=== PATIENT | female | born 1960 | race Caucasian/White ===

== ENCOUNTER 2019-04-03 07:01 | Inpatient (IN) | payer BC, SELFPAY ==
[2019-04-03] VITALS (17 sets, daily range): BP systolic 103–168; BP diastolic 63–99; PULSE 91–130; RESP 16–24; TEMP 36.3–37.3; O2SAT 95–100; BMI 56.4
--- NOTE | ~2019-04-03 | XR_ITS ---
EXAMINATION: XR chest 2V DATE: 04/03/2019 08:15 INDICATION: Shortness of breath. Atrial fibrillation. TECHNIQUE: frontal and lateral views of the chest were obtained. COMPARISON: Chest radiograph dated 08/01/17 FINDINGS: Persistent mild elevation of the right hemidiaphragm. Lungs remain clear with no focal airspace opaci ties, pulmonary edema, pleural effusion or pneumothorax. The cardiomediastinal silhouette is normal. Mild thoracic spondylosis. IMPRESSION: 1. No acute cardiopulmonary disease. Reviewed, dictated and finalized at location A. ATION CONSULTANT
--- NOTE | 2019-04-03 07:13 | ECG_ITS ---
Measurements Intervals [place] Rate: 125 P: [place]: 0 QRS: 35 QRSD: 88 T: 20 QT: 299 QTc: 432 Interpretive Statements ATRIAL FIBRILLATION WITH RAPID VENTRICULAR RESPONSE ABNORMAL ECG Electronically Signed On 04-03-2019 7:16:11 ASSOCIATE MEDICAL DIRECTOR by Laz Roy D.O.
--- NOTE | 2019-04-03 07:24 | ED.GENADULT ---
HPI - General Adult General Chief complaint: Shortness of Breath/Dyspnea Stated complaint: afib Time Seen by Provider: 04/03/19 07:07 Source: RN notes reviewed History of Present Illness HPI narrative: Patient presents to emergency department from home for A. fib. Patient states she has a history of paroxysmal A. fib is followed by Dr. Dumont. States she is on Xarelto. Patient states that she has been A. fib since Tuesday evening. States that normally she comes out of it but did not come out of it and came to the ER for further evaluation. Patient states she is normally on metoprolol for rate control which she has been taking. Denies any fevers or chills, chest pain, shortness of breath abdominal pain or any other symptoms at this time Related Data Allergies Allergy/AdvReac Type Severity Reaction Status Date / Time No Known Allergies Allergy Verified 08/01/17 20:49 Review of Systems Review of Systems: Narrative: Gen.: Denies fevers or chills ENT: Denies congestion Respiratory: Denies shortness of breath or cough CV: See HPI GI: Denies abdominal pain nausea, emesis or diarrhea Musculoskeletal: Denies back pain or muscle pain Neuro: Denies numbness, tingling, weakness or focal weakness Skin: Denies rash Except as documented, all other systems reviewed and negative [facility] Past Medical History Medical History (Updated 04/03/19 @ 08:47 by Bob Connell DO) Atrial fibrillation Family History Family History (Updated 07/07/16 @ 14:44 by DOCTOR UNKNOWN) Sibling Family history of obesity Hypertension Mother Family history of malignant neoplasm of breast in first degree relative Father Patient's father is Other Family history of malignant neoplasm Social History Social History Smoking status: Never smoker Second hand tobacco smoke exposure: No Alcohol intake: current Gender identity (if verbalized by the patient): Female Exam Narrative: Exam Narrative: APPEARANCE: No acute distress, nontoxic, resting in bed EYES: EOMI HEENT: Normocephalic, atraumatic, OMM RESPIRATORY: No respiratory distress Clear to auscultation bilaterally with no rhonchi wheezing or rales. CARDIOVASCULAR: Irregular irregular without murmurs rubs or gallops. ABDOMINAL: Soft, nontender, nondistended, no rebound or guarding MUSCULOSKELETAl: Moves all extremities. No clubbing, cyanosis or edema. NEURO: Awake and alert. Following commands, speech normal, no focal deficits SKIN:: Warm, dry. No rashes lesions or abrasions PSYCHIATRIC: Normal affect/mood, Course Course Emergency Course: Discussed with DICER MACHINE OPERATOR and Kody Dumont presentation work-up. Agrees with admission to the IMU at this time Discussed with patient and family results of workup and diagnosis. Discussed need for admission. Patient and family understand and agree to current treatment plan. Patient states she took her Xarelto last night Vital Signs Vital signs: Vital Signs Temperature 97.6 F 04/03/19 07:09 Pulse Rate 123 H 04/03/19 07:09 Respiratory Rate 24 H 04/03/19 07:09 Blood Pressure 168/99 H 04/03/19 07:09 Pulse Oximetry 100 04/03/19 07:09 Temperature 97.6 F 04/03/19 07:09 Pulse Rate 130 H 04/03/19 07:11 Respiratory Rate 24 H 04/03/19 07:09 Blood Pressure 168/99 H 04/03/19 07:09 Pulse Oximetry 100 04/03/19 07:38 Medical Decision Making Vital Signs Vital Signs: Vital Signs Temperature 97.6 F 04/03/19 07:09 Pulse Rate 123 H 04/03/19 07:09 Respiratory Rate 24 H 04/03/19 07:09 Blood Pressure 168/99 H 04/03/19 07:09 Pulse Oximetry 100 04/03/19 07:09 Temperature 97.6 F 04/03/19 07:09 Pulse Rate 130 H 04/03/19 07:11 Respiratory Rate 24 H 04/03/19 07:09 Blood Pressure 168/99 H 04/03/19 07:09 Pulse Oximetry 100 04/03/19 07:38 Lab Data Result diagrams: 04/03/19 07:36 04/03/19 07:36 [place]
[2019-04-03 07:44] LABS: Basophils Percent Auto 0.7 % (0.2-1.2); Eosinophils Absolute Auto 0.1 K/mm3 (0-0.3); Eosinophils Percent Auto 1.3 % (0-4.4); Hematocrit 46.8 % (37.0-47.0); Immature Granulocyte Absolute 0.02 K/mm3 (0.00-0.031); Immature Granulocyte Percent A 0.4 % (0-0.5); Lymphocytes Absolute Auto 1.62 K/mm3 (0.9-3.2); Mean Corpuscular HGB Conc 32.1 g/dl (32-36); Mean Corpuscular Hemoglobin 29.6 pg (26-34); Mean Corpuscular Volume 92.5 fl (80-100); Mean Platelet Volume 11.2 fl (7.4-10.4); Monocytes Absolute Auto 0.4 K/mm3 (0.1-0.6); Neutrophils Absolute Auto 3.3 K/mm3 (1.3-6.7); Neutrophils Percent Auto 60.6 % (45.5-73.1); Platelet Count Result 269 k/mm3 (150-375); Red Blood Count 5.06 M/mm3 (4.2-5.4); Red Cell Distribution Width 13.4 % (11.5-14.5); White Blood Count 5.4 K/mm3 (4.5-10.0)
[2019-04-03] MEDS: ASPIRIN 81 MG CHEWABLE TABLET 324 MG PO (07:53)
[2019-04-03 07:56] LABS: INR 1.2; Prothrombin Time 14.8 Seconds (11.1-14.7)
[2019-04-03 07:57] LABS: Blood Urea Nitrogen 16 mg/dL (7-17); Carbon Dioxide 29 mmol/L (22-30); Chloride 102 mmol/L (98-107); Estimated CRCL calculation 111 ml/min; Estimated Glomerular Filt Rate > 60; Glucose 113 mg/dL (65-105); Partial Thromboplastin Time 35.4 SECONDS (22.3-36.8); Potassium 3.8 mmol/L (3.4-5.0); Sodium 138 mmol/L (137-145)
[2019-04-03 08:08] LABS: Troponin I < 0.012 ng/mL (0.000-0.034)
--- NOTE | 2019-04-03 09:44 | ADMGEN ---
This patient, Leora Mcghee, was admitted to IMU Room 205-02 on 04-03-2019 at 0944. Patient/family oriented to hospital policies and general routines including ID bracelet, bed and alarms, visiting hours, pain management, procedures, bathroom and other care routines, personal items, smoking policy, room service/diet, and visiting hours. Valuables list has been completed. Information on how to activate the Rapid Response Team has been discussed. Patient/Family are encouraged to report perceived risks to care and to ask questions if they do not understand what they are told or what they should do.
[2019-04-03 11:18] LABS: Troponin I < 0.012 ng/mL (0.000-0.034)
--- NOTE | 2019-04-03 13:20 | PM.CNCAR ---
History of Present Illness History of Present Illness Consult date/time: Date of service: 04/03/19 13:20 This is a cardiology consultation at the request of Reason For Visit: afib with rvr PMFSH Past Medical History Medical History (Updated 04/03/19 @ 08:47 by Bob Connell DO) Atrial fibrillation Family History Family History (Updated 04/03/19 @ 10:22 by Joss Pastrana RN) Sibling Family history of obesity Hypertension Mother Family history of malignant neoplasm of breast in first degree relative Atrial fibrillation Hypertension Father Patient's father is Pulmonary fibrosis Angina at rest Other Family history of malignant neoplasm Social History Social History Smoking status: Never smoker Second hand tobacco smoke exposure: No Alcohol intake: never Substance use: never Gender identity (if verbalized by the patient): Female Spiritual care concerns: No Agree to blood products: Yes Meds Home Medications and Allergies Home Medications Medication Instructions Recorded Confirmed Type cyanocobalamin (vitamin B-12) 250 mcg PO DAILY 04/03/19 04/03/19 History ferrous gluconate 324 mg PO DAILY 04/03/19 04/03/19 History levothyroxine [Synthroid] 100 mcg PO DAILY 04/03/19 04/03/19 History metoprolol tartrate 100 mg PO Q12H 04/03/19 04/03/19 History pediatric multivitamin no.76 2 tablet PO DAILY 04/03/19 04/03/19 History [Flintstones Complete] rivaroxaban [Xarelto] 20 mg PO DAILY 04/03/19 04/03/19 History thiamine HCl (vitamin B1) [Vitamin 250 mg PO DAILY 04/03/19 04/03/19 History B-1] triamcinolone acetonide 1 applic TOPICAL DAILY PRN 04/03/19 04/03/19 History Allergies Allergy/AdvReac Type Severity Reaction Status Date / Time No Known Allergies Allergy Verified 04/03/19 10:22 Vital Signs Vital Signs - 24 hr 04/03/19 07:09 04/03/19 07:11 04/03/19 07:38 Temperature 36.4 C Pulse Rate 123 H 130 H Respiratory Rate 24 H Blood Pressure 168/99 H Pulse Oximetry 100 100 04/03/19 08:30 04/03/19 09:30 04/03/19 10:00 Temperature Pulse Rate 103 H 112 H 117 H Respiratory Rate 18 16 Blood Pressure 132/88 116/89 Pulse Oximetry 99 100 Results Labs and Meds Result diagrams: 04/03/19 07:36 04/03/19 07:36 Lab results: Cardiac Enzymes 04/03/19 04/03/19 Range/Units 07:36 10:46 Troponin I < 0.012 < 0.012 (0.000-0.034) ng/mL Coagulation 04/03/19 Range/Units 07:36 PT 14.8 H (11.1-14.7) Seconds APTT 35.4 (22.3-36.8) SECONDS CBC 04/03/19 Range/Units 07:36 WBC 5.4 (4.5-10.0) K/mm3 RBC 5.06 (4.2-5.4) M/mm3 Hgb 15.0 (12.0-15.0) g/dL Hct 46.8 (37.0-47.0) % Plt Count 269 (150-375) k/mm3 Lymph # (Auto) 1.62 (0.9-3.2) K/mm3 [place] # (Auto) 0.4 (0.1-0.6) K/mm3 Eos # (Auto) 0.1 (0-0.3) K/mm3 Baso # (Auto) 0.0 (0.0-0.1) K/mm3 Comprehensive Metabolic Panel 04/03/19 Range/Units 07:36 Sodium 138 (137-145) mmol/L Potassium 3.8 (3.4-5.0) mmol/L Chloride 102 (98-107) mmol/L Carbon Dioxide 29 (22-30) mmol/L BUN 16 (7-17) mg/dL Creatinine 0.80 (0.7-1.0) mg/dL Glucose 113 H (65-105) mg/dL Calcium 9.0 (8.4-10.2) mg/dL Patient Weight 04/03/19 23:59 Weight 163.4 kg
--- NOTE | 2019-04-03 13:24 | PM.IMHP ---
H&P: HPI History of Present Illness Chief complaint: afib with rvr Narrative: Leora Mcghee is a 58 year old female with past medical history significant for heart failure with preserved ejection fraction, hypertension, pulmonary hypertension, morbid obesity, paroxysmal atrial fibrillation on systemic anticoagulation noted onset of rapid palpitations and recurrence of atrial fibrillation which began Tuesday evening. Typically, her episodes resolved but this persisted a given progressive fatigue ongoing palpitations with rapid heart rate response she presented to the ER for further evaluation. She was found to be in atrial fibrillation with rapid ventricular response. She was hemodynamically stable without complaints of chest pain or significant shortness of breath exception of mild dyspnea with activity. She denies falls, near-syncope or syncope. No bleeding, recent illnesses or fevers/chills. She notes worsening edema over the past few days resolves elevating her legs by morning. She has been compliant with the medications and has not missed a single dose of anticoagulation with Xarelto for months. She was taking metoprolol 100 mg twice daily in which her last dose was last night. In the ER she was started on diltiazem drip at 5 milligrams/hour and heart rate remained in the 110s-130 range. She feels a little better but largely unchanged since admission. She has no other specific complaints at this time. Review of Systems Review of Systems: All systems reviewed & are unremarkable except as noted in HPI and below Constitutional: Constitutional: Reports as per HPI, Reports no additional constitutional complaints, Denies chills, Denies difficulty sleeping, Reports fatigue, Reports lethargy and Denies weakness Eyes: Eyes: Reports as per HPI, Reports no additional eye complaints and Denies blurry vision ENT: Reports system reviewed and no additional complaints, except as documented, Reports as per HPI, Reports Normal hearing present, Denies dysphagia, Denies epistaxis and Denies nasal congestion Cardiovascular: Cardiovascular: Reports as per HPI, Reports no additional cardiovascular complaints, Denies chest pain, Denies diaphoresis, Reports pedal edema, Reports leg edema, Reports lightheadedness and Reports palpitations Respiratory: Respiratory: Reports as per HPI, Reports no additional respiratory complaints, Denies cough, Denies hemoptysis, Reports dyspnea on exertion and Denies wheezing Gastrointestinal: Gastrointestinal: Reports as per HPI, Reports no additional gastrointestinal complaints, Denies abdominal pain, Denies melena, Denies bloating, Denies hematochezia, Denies nausea, Denies vomiting and Denies hematemesis Genitourinary: Genitourinary: Reports as per HPI, Denies hematuria, Denies nocturia and Denies dysuria Musculoskeletal: Musculoskeletal: Reports no additional musculoskeletal complaints, Reports as per HPI, Denies back pain, Denies arthralgias and Denies neck pain Integumentary/Breasts: Skin/Breast: Reports system reviewed and no additional complaints, except as docu, Reports as per HPI, Denies rash and Denies unusual bruising Neurologic: Reports system reviewed and no additional complaints, except as documented, Reports as per HPI, Denies Abnormal speech present, Denies abnormal gait and Denies headache(s) Psychiatric: Psychiatric: Reports no additional psychiatric complaints, Reports as per HPI, Denies behavioral changes and Denies confusion Endocrine: Endocrine: Reports no additional endocrine complaints, Reports as per HPI, Denies cold intolerance, Denies excessive sweating and Reports fatigue Hematologic/Lymphatic: Hematologic/Lymphatic: Reports no additional hematologic/lymphatic complaints, Reports as per HPI and Denies easy bleeding Allergic/Immunologic: Allergic/Immunologic: Reports no additional allergic/immunologic complaints, Reports as per HPI and Denies tongue swelling PMFSH Past Medical History Medical History (Review
[2019-04-03 14:22] LABS: Troponin I < 0.012 ng/mL (0.000-0.034)
[2019-04-03] MEDS: SOTALOL HCL 80 MG TABLET PO ×2 (14:27→21:28)
[2019-04-03] MEDS: FERROUS GLUCONATE 324 MG TABLET PO (15:44)
[2019-04-03] MEDS: CYANOCOBALAMIN 250 MCG TABLET PO (15:44)
[2019-04-03] MEDS: THIAMINE HCL 100 MG TABLET 200 MG PO (15:45)
[2019-04-03] MEDS: MULTIVITS W-FE,MIN CHEWABLE TABLET 2 TABLET PO (15:45)
[2019-04-03] MEDS: RIVAROXABAN 20 MG TABLET PO (16:58)
[2019-04-03] MEDS: THIAMINE HCL 50 MG TABLET PO (16:58)
[2019-04-04] VITALS (18 sets, daily range): BP systolic 105–122; BP diastolic 52–72; PULSE 67–119; RESP 18–22; TEMP 36.1–37; O2SAT 98–100
[2019-04-04] MEDS: LEVOTHYROXINE SODIUM 100 MCG TABLET PO (05:27)
--- NOTE | 2019-04-04 07:00 | ECG_ITS ---
Measurements Intervals [place] Rate: 118 P: [place]: 0 QRS: 55 QRSD: 85 T: 28 QT: 324 QTc: 455 Interpretive Statements ATRIAL FIBRILLATION WITH RAPID VENTRICULAR RESPONSE ABNORMAL ECG Electronically Signed On 04-04-2019 7:34:43 UNDERWRITING ANALYST by Laz Roy D.O.
[2019-04-04 08:06] LABS: Basophils Absolute Auto 0.1 K/mm3 (0.0-0.1); Basophils Percent Auto 0.9 % (0.2-1.2); Eosinophils Absolute Auto 0.1 K/mm3 (0-0.3); Eosinophils Percent Auto 1.3 % (0-4.4); Hematocrit 49.8 % (37.0-47.0); Hemoglobin 15.5 g/dL (12.0-15.0); Immature Granulocyte Absolute 0.02 K/mm3 (0.00-0.031); Immature Granulocyte Percent A 0.4 % (0-0.5); Lymphocytes Absolute Auto 2.25 K/mm3 (0.9-3.2); Lymphocytes Percent Auto 40.3 % (18.3-44.2); Mean Corpuscular HGB Conc 31.1 g/dl (32-36); Mean Corpuscular Hemoglobin 29.4 pg (26-34); Mean Corpuscular Volume 94.3 fl (80-100); Mean Platelet Volume 11.7 fl (7.4-10.4); Monocytes Absolute Auto 0.4 K/mm3 (0.1-0.6); Monocytes Percent Auto 7.2 % (2.6-8.5); Neutrophils Absolute Auto 2.8 K/mm3 (1.3-6.7); Neutrophils Percent Auto 49.9 % (45.5-73.1); Platelet Count Result 253 k/mm3 (150-375); Red Blood Count 5.28 M/mm3 (4.2-5.4); Red Cell Distribution Width 13.3 % (11.5-14.5); White Blood Count 5.6 K/mm3 (4.5-10.0)
[2019-04-04 08:40] LABS: Blood Urea Nitrogen 16 mg/dL (7-17); Carbon Dioxide 27 mmol/L (22-30); Chloride 104 mmol/L (98-107); Estimated CRCL calculation 142 ml/min; Estimated Glomerular Filt Rate > 60; Glucose 98 mg/dL (65-105); Potassium 4.5 mmol/L (3.4-5.0); Sodium 138 mmol/L (137-145)
[2019-04-04] MEDS: FERROUS GLUCONATE 324 MG TABLET PO (08:49)
[2019-04-04] MEDS: MULTIVITS W-FE,MIN CHEWABLE TABLET 2 TABLET PO (08:49)
[2019-04-04] MEDS: THIAMINE HCL 50 MG TABLET PO (08:49)
[2019-04-04] MEDS: THIAMINE HCL 100 MG TABLET 200 MG PO (08:49)
[2019-04-04] MEDS: SOTALOL HCL 80 MG TABLET PO ×2 (08:50→21:39)
--- NOTE | 2019-04-04 12:26 | PM.PNCARD ---
Progress Note: A&P Assessment and Plan (1) Atrial fibrillation with rapid ventricular response: Code(s): I48.91 - Unspecified atrial fibrillation Status: Acute Assessment and Plan: Continue sotalol 80 mg twice daily. QT corrected 455 milliseconds today. Check EKG in a.m.. Monitor for toxicity. Continue telemetry. No ventricular arrhythmias. Atrial fibrillation with rapid ventricular response persistent. Asymptomatic, continue anticoagulation. If remains in AFib overnight plan for elective electrical cardioversion without FLOYD guidance in a.m.. Anticipate discharge home subsequently on sotalol 80 mg twice daily and continuation of anticoagulation. Discussed with patient and her mother bedside who verbalized understanding and agreed with plan of care. Risks, benefits, and alternatives explained in detail and in particular with regards to risk for oxygen desaturation. With see if respiratory therapy can provide CPAP support during cardioversion with conscious sedation. NPO after midnight. (2) Heart failure with preserved ejection fraction: Code(s): I50.30 - Unspecified diastolic (congestive) heart failure Status: Acute Assessment and Plan: Compensated. Continue home medical therapy. (3) Pulmonary hypertension: Code(s): I27.20 - Pulmonary hypertension, unspecified Status: Acute Assessment and Plan: Check 2D echocardiogram (4) Morbid obesity: Code(s): E66.01 - Morbid (severe) obesity due to excess calories Status: Acute Assessment and Plan: Apnea link consistent with mild obstructive sleep apnea AHI 6. Mild oxygen desaturation noted. Lifestyle modification counseling. Will see if respiratory therapy can provide CPAP support for elective cardioversion tomorrow. (5) Chronic anticoagulation: Code(s): Z79.01 - exterminator helper (current) use of anticoagulants Status: Acute Assessment and Plan: Continue systemic anticoagulation without interruption. Subjective Date/time seen: Date of service: 04/04/19 09:35 Follow-up for atrial fibrillation with rapid ventricular response and sotalol loading Feels fine. No new issues overnight. Tolerating sotalol thus far. Remains in atrial fibrillation with rapid ventricular response. Average heart rate low 100s faster with activity. No dizziness, chest pain, shortness of breath. Apnea link performed overnight AHI 6. Review of Systems Review of Systems: All systems reviewed & are unremarkable except as noted in HPI and below Constitutional: Constitutional: Reports as per HPI, Reports no additional constitutional complaints, Denies chills, Denies difficulty sleeping, Denies excessive sweating, Reports fatigue, Denies headache(s), Reports lethargy and Denies weakness Eyes: Eyes: Reports as per HPI, Reports no additional eye complaints and Denies blurry vision ENT: Reports system reviewed and no additional complaints, except as documented, Reports as per HPI, Reports Normal hearing present, Denies dysphagia, Denies headache(s), Denies epistaxis, Denies nasal congestion, Denies neck pain and Denies tongue swelling Cardiovascular: Cardiovascular: Reports as per HPI, Reports no additional cardiovascular complaints, Denies chest pain, Denies diaphoresis, Reports pedal edema, Reports leg edema, Reports lightheadedness, Reports palpitations and Reports dyspnea on exertion Respiratory: Respiratory: Reports as per HPI, Reports no additional respiratory complaints, Denies cough, Denies hemoptysis, Reports dyspnea on exertion and Denies wheezing Gastrointestinal: Gastrointestinal: Reports as per HPI, Reports no additional gastrointestinal complaints, Denies abdominal pain, Denies melena, Denies bloating, Denies hematochezia, Denies dysphagia, Denies nausea, Denies vomiting and Denies hematemesis Genitourinary: Genitourinary: Reports as per HPI, Denies hematuria, Denies nocturia and Denies dysuria Musculoskeletal:
--- NOTE | 2019-04-04 13:26 | PHAR ---
HOME MED VERIFIED VITAMIN B 12 SUBLINGUAL 5000MCG DAILY
--- NOTE | 2019-04-04 15:54 | ECHO_ITS ---
Patient Info Name: Leora Mcghee Age: 58 years : 1960 Gender: Female Ht: 67 in Wt: 360 lbs BSA: 2.88 m2 HR: 115 bpm BP: 106 / 69 mmHg Heart Rhythm: Atrial Fibrillation Technical Quality: Good Exam Date: 04/04/2019 11:42 AM Exam Location: [facility] Patient Status: Inpatient Admit Date: 04/04/2019 Staff Ordering Physician: Ron Dumont MD Cloth Bin Packer: Harman Garnett RDCS Attending Provider: Ron Dumont MD Referring Physician: Tim BOUCHER; Exam Type: CA echo doppler color flow Study Info Indications I48.0 - Paroxysmal atrial fibrillation Complete two-dimensional, color flow and Doppler transthoracic echocardiogram is performed. Strain analysis performed. History/Risk Factors Afib w/ RVR, HFpEF, pHTN, HTN, edema. Summary 1. Left ventricular systolic function is normal, estimated at 60-65%. 2. There is mildly increased left ventricular wall thickness. 3. The left ventricular diastolic function is indeterminate. 4. Left atrial chamber dimension is mildly enlarged. 5. Right atrial chamber dimension is moderately enlarged. 6. Upper limits or normal pulmonary pressures, estimated pulmonary arterial systolic pressure is 35 mmHg. 7. Technically difficult study. Left Ventricle Left ventricular chamber dimension is normal. Left ventricular systolic function is normal, estimated at 60-65%. There is mildly increased left ventricular wall thickness. The left ventricular diastolic function is indeterminate. Global longitudinal strain is mildly elevated at -13 %. Right Ventricle Right ventricular chamber dimension is normal. Right ventricular systolic function is normal. Left Atria Left atrial chamber dimension is mildly enlarged. Right Atria Right atrial chamber dimension is moderately enlarged. Aortic Valve The aortic valve is not well visualized. There is mild aortic valve sclerosis. There is no aortic valve stenosis. There is no aortic valve regurgitation. Pulmonic Valve The pulmonic valve is not well visualized. Mitral Valve The mitral valve has normal leaflets. There is trace mitral valve regurgitation. Tricuspid Valve The tricuspid valve leaflets are normal. There is trace tricuspid valve regurgitation. Upper limits or normal pulmonary pressures, estimated pulmonary arterial systolic pressure is 35 mmHg. Pericardium/Pleural The pericardium appears normal. There is no pericardial effusion. Inferior Vena Cava Normal inferior vena cava with >50% collapse upon inspiration consistent with normal right atrial pressure, 5 mmHg. Aorta The aortic root size at the sinus of Valsalva is normal. Left Ventricular Outflow Tract Name Value Normal LVOT 2D LVOT Diameter 2.1 cm LVOT Doppler LVOT Peak Gradient 3 mmHg LVOT Mean Gradient 2 mmHg LVOT VTI 16 cm LVOT VTI/AV VTI Ratio 0.6 LVOT Stroke Volume 55 ml LVOT CO 5.9 l/min LVOT CI
[2019-04-04] MEDS: RIVAROXABAN 20 MG TABLET PO (17:46)
[2019-04-05] VITALS (22 sets, daily range): BP systolic 94–120; BP diastolic 60–75; PULSE 61–111; RESP 10–20; TEMP 36.1–36.3; O2SAT 97–100
[2019-04-05] MEDS: LEVOTHYROXINE SODIUM 100 MCG TABLET PO (06:40)
--- NOTE | 2019-04-05 07:00 | ECG_ITS ---
Measurements Intervals [place] Rate: 107 P: [place]: 0 QRS: 35 QRSD: 90 T: 30 QT: 346 QTc: 464 Interpretive Statements ATRIAL FIBRILLATION WITH RAPID VENTRICULAR RESPONSE VENTRICULAR PREMATURE COMPLEX ABNORMAL ECG Electronically Signed On 04-05-2019 9:25:08 RN LPN LVN by Laz Roy D.O.
[2019-04-05] MEDS: SOTALOL HCL 80 MG TABLET PO (07:58)
[2019-04-05 09:31] LABS: Blood Urea Nitrogen 13 mg/dL (7-17); Calcium 9.1 mg/dL (8.4-10.2); Carbon Dioxide 26 mmol/L (22-30); Chloride 102 mmol/L (98-107); Estimated CRCL calculation 125 ml/min; Estimated Glomerular Filt Rate > 60; Glucose 114 mg/dL (65-105); Potassium 4.5 mmol/L (3.4-5.0); Sodium 139 mmol/L (137-145)
--- NOTE | 2019-04-05 09:34 | PC.NURSE ---
Pt to wastewater analyst lab analyst for cardioversion.
--- NOTE | 2019-04-05 12:00 | ECG_ITS ---
Measurements Intervals [place] Rate: 71 P: 9 TN: 213 QRS: 20 QRSD: 102 T: 30 QT: 411 QTc: 448 Interpretive Statements SINUS RHYTHM WITH FIRST DEGREE AV BLOCK ABNORMAL ECG Electronically Signed On 04-05-2019 14:47:53 CULTURE MEDIA LABORATORY ASSISTANT by Laz Roy D.O.
--- NOTE | 2019-04-05 12:14 | WPDMODSED ---
Moderate Sedation Note-Pt Data Patient Data Diagnosis: Persistent atrial fibrillation with rapid ventricular response Present Complaint: None Procedure to be performed/Plan: Elective electrical cardioversion Allergies Allergy/AdvReac Type Severity Reaction Status Date / Time No Known Allergies Allergy Verified 04/03/19 10:22 Home Medications Medication Instructions Recorded Confirmed Type ferrous gluconate 324 mg PO DAILY 04/03/19 04/03/19 History levothyroxine [Synthroid] 100 mcg PO DAILY 04/03/19 04/03/19 History metoprolol tartrate 100 mg PO Q12H 04/03/19 04/03/19 History pediatric multivitamin no.76 2 tablet PO DAILY 04/03/19 04/03/19 History [Flintstones Complete] rivaroxaban [Xarelto] 20 mg PO DAILY 04/03/19 04/03/19 History thiamine HCl (vitamin B1) [Vitamin 250 mg PO DAILY 04/03/19 04/03/19 History B-1] triamcinolone acetonide 1 applic TOPICAL DAILY PRN 04/03/19 04/03/19 History cyanocobalamin-methylcobalamin 5,000 tablet SUBLINGUAL DAILY 04/04/19 04/04/19 History Current Medications: Active Medications Ferrous Gluconate (Ferrous Gluconate) 324 mg PO DAILY [facility] Last Admin: 04/04/19 08:49 Dose: 324 mg Documented by: Levothyroxine Sodium (Synthroid) 100 mcg PO 0630 [facility] Last Admin: 04/05/19 06:40 Dose: 100 mcg Documented by: Multivitamins/Minerals (Flintstones Complete) 2 tablet PO DAILY [facility] Stop: 05/04/19 09:01 Last Admin: 04/04/19 08:49 Dose: 2 tablet Documented by: Rivaroxaban (Xarelto) 20 mg PO QPM [facility] Last Admin: 04/04/19 17:46 Dose: 20 mg Documented by: Sotalol HCl (Betapace) 80 mg PO Q12HR [facility] Last Admin: 04/05/19 07:58 Dose: 80 mg Documented by: Thiamine HCl (Vitamin B-1) 200 mg PO DAILY [facility] Stop: 05/04/19 09:01 Last Admin: 04/04/19 08:49 Dose: 200 mg Documented by: Thiamine HCl (Vitamin B-1) 50 mg PO DAILY [facility] Last Admin: 04/04/19 08:49 Dose: 50 mg Documented by: Sedation/Anesthesia: No previous sedation/anesthesia problems (including family history). [facility] Past Medical History Medical History Atrial fibrillation Heart failure with preserved ejection fraction Morbid obesity Pulmonary hypertension Family History Family History Sibling Family history of obesity Hypertension Mother Family history of malignant neoplasm of breast in first degree relative Atrial fibrillation Hypertension Father Patient's father is Pulmonary fibrosis Angina at rest Other Family history of malignant neoplasm Social History Social History Smoking status: Never smoker Second hand tobacco smoke exposure: No Alcohol intake: never Substance use: never Gender identity (if verbalized by the patient): Female Spiritual care concerns: No Agree to blood products: Yes Mod Sed Physical Exam Physical Exam Pre Procedural Exam: Normal: Appearance, Eyes, Ears, Nose, Neck (Supple, normal range of motion), Throat (Posterior hypopharynx clear, nonerythematous), Airway (Normal anatomy, no obstruction), Lungs (Clear to auscultation bilaterally), Heart Size, Neuro Exam, Liver, Kidneys, Genitalia and Skin and Variation: Heart Rate (Tachycardic), Heart Rhythm (Irregular irregular), Abdomen (Morbidly obese) and Extremities (1+ bilateral lower extremity edema) Hours since solid foods: 12 Hours since liquid intake: 12 Internal Medicine - PN: Obj Da Vital Signs Vital Signs: Vital Signs - 24 hr 04/04/19 14:00 04/04/19 16:00 04/04/19 18:00 Temperature 37.0 C Pulse Rate 109 H 108 H 89 Respiratory Rate 18 Blood Pressure 122/72 Pulse Oximetry 100 04/04/19 19:35 04/04/19 20:00 04/04/19 21:39 Temperature 36.8 C Pulse Rate 107 H 109 H 110 H Respiratory Rate 20 Blood Pressure 113/53 L Pulse Oximetry 100 04/04/19 21:54 04/04/19 23:43 04/04/19 23:52 [place]
--- NOTE | 2019-04-05 12:16 | P.PCNCVR_ITS ---
Cardioversion Cardioversion Date of procedure: 04/05/19 Procedure: Elective electrical cardioversion Pre-op diagnosis: Atrial fibrillation with rapid ventricular response Post-op diagnosis: same Indications: Atrial fibrillation with rapid ventricular response Description of procedure: Brief history present illness: Patient is a pleasant 58-year-old female with a history of paroxysmal atrial fibrillation, heart failure with preserved ejection fraction, morbid obesity maintain on systemic anticoagulation with persistent atrial fibrillation with rapid ventricular response admitted to the hospital for further management. Patient was then initiated on sotalol loading and is now referred for elective cardioversion in attempt restore sinus rhythm. Procedure in detail: After verbal and written informed consent was obtained the patient risks, benefits, and alternatives explained in detail the patient agreed to proceed with the plan of care as outlined above. Patient was evaluated at bedside in the [facility] procedure room. On examination, neck was supple with normal range of motion, no restrictions to opening of the oral cavity, jaw angle and posterior hypopharynx was clear. Lungs were clear to auscultation. Patient was placed in appropriate 30 to 45 degree angle in a supine position. Patient was monitored throughout the study with telemetry, oxygen saturation, end-tidal CO2 monitoring, blood pressure, heart rate, and respirations. Anterior and posterior defibrillator pads placed in the appropriate positions. After confirmation of adequate sedation electrical cardioversion was carried out without complication. Patient tolerated the procedure well without difficulty. Sedation: Moderate Sedation/Anesthesia administration: Patient denied previous intolerance or complications with anesthesia/sedation. Please see sedation note for documentation of the pre-procedure physical examination. As noted above, after adequate local anesthesia of the posterior hypopharynx was achieved, a total of 8mg intravenous Versed and a total of 225 mcg intravenous Fentanyl in multiple divided doses was utilized for moderate sedation. Sedation start time was 1102 and end time was 1144 for a total of 42 minutes [id number] intra-procedure time. Sedation was administered by a qualified observer Jerica Alvarez RN under my supervision with intra-procedure [id number] observation and management throughout the entirety of the procedure. There were no other issues or complications and patient tolerated the procedure well and sedation protocol well and I was present for the entirety. Findings: Elective electrical cardioversion: After confirmation of adequate sedation and persistence of atrial fibrillation, 200 joules synched biphasic energy x1 was delivered with immediate congregational of sinus rhythm. Twelve lead EKG was obtained postprocedure confirming sinus rhythm. QTc 434msec Complications: None Conclusion: Successful congregational of sinus rhythm with 200 joules synched biphasic energy x1.
--- NOTE | 2019-04-05 13:08 | SUR.PHASEII ---
Report called to Queta RN in IMU, all questions answered. Patient taken back to room 214 via bed.
[2019-04-05] MEDS: MULTIVITS W-FE,MIN CHEWABLE TABLET 2 TABLET PO (13:22)
[2019-04-05] MEDS: THIAMINE HCL 100 MG TABLET 200 MG PO (13:23)
[2019-04-05] MEDS: FERROUS GLUCONATE 324 MG TABLET PO (13:23)
[2019-04-05] MEDS: THIAMINE HCL 50 MG TABLET PO (13:23)
--- NOTE | 2019-04-05 13:32 | PC.NURSE ---
Pt returned from clinical laboratory aide
--- NOTE | 2019-04-05 13:47 | PM.DS ---
DS: Diagnosis Admitting Diagnosis Admitting Diagnosis: Atrial fibrillation with a rapid ventricular response Discharge Diagnosis (1) Atrial fibrillation with rapid ventricular response: Code(s): I48.91 - Unspecified atrial fibrillation Status: Acute Assessment and Plan: Successful cardioversion restoring normal sinus rhythm QTc postprocedure 434ms Continue sotalol 80 mg every 12 hours. Continue Xarelto 20 mg daily for anticoagulation. (2) Heart failure with preserved ejection fraction: Code(s): I50.30 - Unspecified diastolic (congestive) heart failure Status: Acute Assessment and Plan: Compensated. Continue home medical therapy. (3) Pulmonary hypertension: Code(s): I27.20 - Pulmonary hypertension, unspecified Status: Acute Assessment and Plan: ECHO: 1. Left ventricular systolic function is normal, estimated at 60-65%. 2. There is mildly increased left ventricular wall thickness. 3. The left ventricular diastolic function is indeterminate. 4. Left atrial chamber dimension is mildly enlarged. 5. Right atrial chamber dimension is moderately enlarged. 6. Upper limits or normal pulmonary pressures, estimated pulmonary arterial systolic pressure is 35 mmHg. 7. Technically difficult study. (4) Morbid obesity: Code(s): E66.01 - Morbid (severe) obesity due to excess calories Status: Acute Assessment and Plan: Apnea link consistent with mild obstructive sleep apnea AHI 6. Mild oxygen desaturation noted. Lifestyle modification counseling. (5) Chronic anticoagulation: Code(s): Z79.01 - terminal press operator (current) use of anticoagulants Status: Acute Assessment and Plan: Continue systemic anticoagulation without interruption. DS: Summary Hospital Course Reason for hospitalization: Atrial fibrillation with rapid ventricular response Hospital Course: 58-year-old female with a history of paroxysmal atrial fibrillation, heart failure with preserved ejection fraction, morbid obesity maintain on systemic anticoagulation with persistent atrial fibrillation with rapid ventricular response admitted to the hospital for further management. She was initiated on sotalol loading and underwent successful cardioversion with mosque in normal sinus rhythm. She was observed for 2 hours postprocedure. She maintain normal sinus rhythm. She was awake, alert, without lightheadedness on ambulation to the bathroom. Her gait was steady. She was discharged home in stable and pain-free condition. Time Spent with Patient Time attestation: Total time spent providing and/or coordinating discharge services:15 minutes Exam Narrative: Exam Narrative: General: Patient is a very pleasant obese female, no apparent distress alert and oriented x3 breathing comfortably speaking full sentences, cooperative. Head: atraumatic, normocephalic Eyes: EOM intact, sclerae anicteric, conjunctivae unremarkable Ears/Nose: external inspection of ears and nose were grossly normal Mouth/Throat: oral mucosa pink and moist Neck: supple, normal range of motion, no jugular venous distention or carotid bruits, thyroid nonpalpable, trachea midline. Cardiac: Irregular irregular rate and rhythm, tachycardic normal S1-S2, no murmurs, clicks, or rubs. Lungs: Clear to auscultation bilaterally, no rales, wheezes, or rhonchi. Abdomen: Obese, soft, nontender, nondistended, positive bowel sounds throughout. No appreciable hepatosplenomegaly, no rebound guarding or rigidity noted. Abdominal aorta nonpalpable, no appreciable bruits. Extremities: 1+ bilateral equal pitting lower extremity edema up to below the knees, no clubbing or cyanosis. Extremities warm and well perfused. Skin:
== END 2019-04-05 16:04 | disposition home or self-care (01) | DRG 308 ==
LOC: ANHED 08:47 → ANHIMU 08:51
PROVIDERS: Admitting Provider Internal Medicine Cardiovascular Disease; Emergency Provider Emergency Medicine; PCP Internal Medicine; Visit Provider Internal Medicine Cardiovascular Disease
PROC: 5A2204Z Restoration of Cardiac Rhythm, Single (ICD-10-PCS; principal; 2019-04-05 10:00)
DX: I48.0 Paroxysmal atrial fibrillation (principal); I50.31 Acute diastolic (congestive) heart failure; Z68.43 Body mass index [BMI] 50.0-59.9, adult; I11.0 Hypertensive heart disease with heart failure; I27.20 Pulmonary hypertension, unspecified; E66.01 Morbid (severe) obesity due to excess calories; Z79.01 Long term (current) use of anticoagulants
CPT/HCPCS: 36415; 71046; 80048; 83735; 84443; 84484; 85025; 85610; 85730; 92960; 93005; 93306; 94660; 94762; 96374; 99291; A9270; G0378; J2250; J3010; J7040

== ENCOUNTER 2024-01-20 20:50 | Inpatient (IN) | payer OTHER, SELFPAY ==
--- NOTE | ~2024-01-20 | US_ITS ---
EXAMINATION: US venous doppler [facility] DATE: 01/22/2024 10:43 INDICATION: Left lower limb pain and swelling. TECHNIQUE: Grayscale ultrasound images without and with compression and Doppler ultrasound images of the left lower extremity veins were obtained. COMPARISON: None. FINDINGS: The visualized portions of left common femoral vein, profunda (deep) femoral vein, femoral vein, popl iteal vein, peroneal veins, posterior tibial veins, and greater saphenous vein outflow are patent. Th ere is a moderate-sized Craven's cyst. IMPRESSION: 1. No deep venous thrombosis. 2. Moderate-sized Craven's cyst. Reviewed, dictated and finalized at location A. GEMENT ACCOUNTANT
--- NOTE | ~2024-01-20 | XR_ITS ---
XR chest 1V portable Ordering provider: Derrek Del Cid MD History: 63 years Female with . WEAKNESS . Comparison: None. FINDINGS: MEDIASTINUM: The cardiac silhouette is slightly enlarged. Congestive grazyna. LUNGS: No infiltrates, effusions or pneumothorax. OTHER: No free air under the diaphragm. IMPRESSION: No acute cardiopulmonary pathology. Reviewed, dictated and finalized at location A. RNATIONAL ACCOUNTING MANAGER
[2024-01-20 20:50] VITALS: BP 152/96; PULSE 126; RESP 16; TEMP 36.2; O2SAT 99
--- NOTE | 2024-01-20 21:20 | ECG_ITS ---
Test Date: 2024-01-20 20:56:56 Measurements Intervals [place] Rate: 128 P: 0 AL: 0 QRS: 36 QRSD: 94 T: 22 QT: 305 QTc: 446 Interpretive Statements ATRIAL FIBRILLATION WITH RAPID VENTRICULAR RESPONSE MINIMAL Q WAVES- INFERIOR LEADS BASELINE ARTIFACT- I, II, III, AVR, AVL, AVF, V1-V2 ABNORMAL ECG No previous ECG available for comparison Electronically Signed On 01-21-2024 06:25:31 [employer]ORER GENER[employer] by Laz Roy D.O.
[2024-01-20 21:27] LABS: Basophils Absolute Auto 0.1 K/mm3 (0.0-0.1); Basophils Percent Auto 0.4 % (0.2-1.2); Eosinophils Percent Auto 0.1 % (0-4.4); Hematocrit 43.4 % (37.0-47.0); Hemoglobin 14.5 g/dL (12.0-15.0); Immature Granulocyte Absolute 0.14 K/mm3 (0.00-0.031); Immature Granulocyte Percent A 1.1 % (0-0.5); Mean Corpuscular HGB Conc 33.4 g/dl (32-36); Mean Corpuscular Hemoglobin 30.5 pg (26-34); Mean Corpuscular Volume 91.4 fl (80-100); Mean Platelet Volume 11.7 fl (7.4-10.4); Monocytes Absolute Auto 0.7 K/mm3 (0.1-0.6); Monocytes Percent Auto 5.6 % (2.6-8.5); Neutrophils Percent Auto 85.8 % (45.5-73.1); Platelet Count Result 205 k/mm3 (150-375); Red Blood Count 4.75 M/mm3 (4.2-5.4); Red Cell Distribution Width 13.2 % (11.5-14.5); White Blood Count 12.8 K/mm3 (4.5-10.0)
[2024-01-20 21:38] LABS: Alanine Aminotransferase 17 U/L (6-35); Albumin Level 3.6 g/dL (3.5-5.1); Alkaline Phosphatase 107 U/L (38-126); Anion Gap 8 mmol/L (4-12); Aspartate Amino Transferase 34 U/L (14-36); Bilirubin,Total 1.2 mg/dL (0.2-1.3); Blood Urea Nitrogen 16 mg/dL (7-17); Calcium 8.4 mg/dL (8.4-10.2); Carbon Dioxide 30 mmol/L (22-30); Chloride 95 mmol/L (98-107); Estimated CRCL calculation 88 ml/min; Estimated Glomerular Filt Rate 56; Glucose 113 mg/dL (65-110); Potassium 3.1 mmol/L (3.4-5.0); Sodium 133 mmol/L (137-145)
--- NOTE | 2024-01-20 21:45 | ED.GENADULT ---
HPI - General Adult General Chief complaint: Arrhythmia/Palpitations Stated complaint: weakness, a-fib Time Seen by Provider: 01/20/24 21:12 History of Present Illness HPI narrative: patient is 63-year-old female who presents emergency department with chief complaint of not feeling well. Patient reports that for the last several days she has felt very weak has not really had an appetite the patient states she did not take her sotalol this morning and reports that feels as though her heart is beating fast patient also reports she has noticed redness below her left knee and is concerned that she has cellulitis. Related Data Home Medications Medication Instructions Recorded Confirmed ferrous gluconate 324 mg (37.5 mg 324 mg PO DAILY 04/03/19 09/02/23 iron) tablet pediatric multivitamin no.76 2 tablet PO DAILY 04/03/19 09/02/23 (Flintstones Complete chewable tablet) rivaroxaban 20 mg tablet (Xarelto) 20 mg PO DAILY 04/03/19 09/02/23 thiamine HCl (vitamin B1) 250 mg 250 mg PO DAILY 04/03/19 09/02/23 tablet (Vitamin B-1) cyanocobalamin-methylcobalamin 600 5,000 tablet sublingual DAILY 04/04/19 09/02/23 mcg-600 mcg sublingual tablet sotalol 80 mg tablet 120 mg PO BID 12/31/20 09/02/23 calcium carbonate (Calcium 600) 600 mg PO DAILY 08/27/22 09/02/23 Allergies Allergy/AdvReac Type Severity Reaction Status Date / Time No Known Allergies Allergy Verified 09/02/23 10:20 Review of Systems Review of Systems: A 10 system review of systems was completed on the patient and is negative except for what is stated in the HPI. Nursing and ancillary documentation was reviewed. ON LICENSE OF [facility] Past Medical History Medical History Heart failure with preserved ejection fraction Morbid obesity Pulmonary hypertension Family History Family History Sibling Family history of obesity Hypertension Mother Family history of malignant neoplasm of breast in first degree relative Atrial fibrillation Hypertension Father Patient's father is Pulmonary fibrosis Angina at rest Other Family history of malignant neoplasm Social History Social History Smoking status: Never smoker Second hand tobacco smoke exposure: No Alcohol intake: never Substance use: never Lack of Transportation: No Lack of Food: Never True Current Housing: I Have Housing Concerned About Future Housing: No Difficulty Paying Gas/Electric Bills: No Difficulty Paying for Meds: No Currently Unemployed: No Education: Associate Degree Difficulty w/ Childcare or Family Care: No Gender identity (if verbalized by the patient): Female Spiritual care concerns: No Agree to blood products: Yes Exam Narrative: GENERAL: Well-appearing, well-nourished, and in no acute distress. HEAD: Normocephalic, atraumatic. EYES: PERRLA and EOMI. ENT: Nares clear, no rhinorrhea or epistaxis. Mucous membranes moist. NECK: Supple. CHEST: Clear to auscultation. No respiratory distress. HEART: Regular rate and rhythm. No murmur heard. Normal peripheral pulses. ABDOMEN: Soft, nontender, nondistended, normal active bowel sounds. EXTREMITIES: Normal range of motion. No edema. SKIN: Warm, dry, Redness below the knee of the left lower extremity consistent with cellulitis intact dorsalis pedis pulses. NEURO: No focal deficits. Alert and oriented x3. PSYCH: Normal mood and affect. Course Vital Signs Vital signs: Vital Signs Temperature 36.2 C L 01/20/24 20:50 Pulse Rate 126 H 01/20/24 20:50 Respiratory Rate 16 01/20/24 20:50 Blood Pressure 152/96 H 01/20/24 20:50 Pulse Oximetry 99 01/20/24 20:50 Oxygen Delivery Room Air 01/20/24 20:50 Temperature 36.2 C L 01/20/24 20:50 Pulse Rate 110 H 01/21/24 00:08 Respiratory Rate 16 01/21/24 00:08 Blood Pressure 132/76 01/21/24 00:08 Pulse Oximetry 99 01/21/24 00:08 Oxygen Delivery Room Air 01/20/24 20:50 Medical Decision Making Vital Signs Vital Signs: Vital Signs Temperature 36.2 C L 01/20/24 20:50 Pulse Rate 126 H 01/20/24 20:50 Respiratory Rate 16 01/20/24 20:50 Blood Pressure 152/96 H 01/20/24 20:50 Pulse Oximetry 99 01/20/24 20:50 Oxygen Delivery Room Air 01/20/24 20:50 Temperature 36.2 C L 01/20/24 20:50 Pulse Rate 110 H 01/21/24 00:08 Respiratory Rate 16 01/21/24 00:08 Blood Pressure 132/76 01/21/24 00:08 Pulse Oximetry 99 01/21/24 00:08 Oxygen Delivery Room Air 01/20/24 20:50 Lab Data 01/20/24 21:09 01/20/24 21:09 Labs: Lab Results 01/20/24 01/20/24 01/20/24 Range/Units 21:09 21:40 23:36 WBC 12.8 H (4.5-10.0) K/mm3 RBC 4.75 (4.2-5.4) M/mm3 Hgb 14.5 (12.0-15.0) g/dL Hct 43.4 (37.0-47.0) % MCV 91.4 (80-100) fl MCH 30.5 (26-34) pg MCHC 33.4 (32-36) g/dl RDW 13.2 (11.5-14.5) % Plt Count 205 (150-375) k/mm3 MPV 11.7 H (7.4-10.4) fl Immature Gran % (Auto) 1.1 H (0-0.5) % Neut % (Auto) 85.8 H (45.5-73.1) % Lymph % (Auto) 7.0 L (18.3-44.2) % [place] % (Auto) 5.6 (2.6-8.5) % Eos % (Auto) 0.1 (0-4.4) % Baso % (Auto) 0.4 (0.2-1.2) % Lymph # (Auto) 0.90 (0.9-3.2) K/mm3 [place] # (Auto) 0.7 H (0.1-0.6) K/mm3 Eos # (Auto) 0.0 (0-0.3) K/mm3 Baso # (Auto) 0.1 (0.0-0.1) K/mm3 Abs Immat Gran (auto) 0.14 H (0.00-0.031) K/mm3 Absolute Neuts (auto) 11.0 H (1.3-6.7) K/mm3 Absolute Nucleated RBC 0.000 (0.0-0.012) K/mm3 Nucleated RBC % 0.0 (0.0-0.2) % PT 16.3 H (11.1-14.7) Seconds INR 1.3 APTT 47.0 H (22.3-36.8) Seconds Sodium 133 L (137-145) mmol/L Potassium 3.1 L (3.4-5.0) mmol/L Chloride 95 L (98-107) mmol/L Carbon Dioxide 30 (22-30) mmol/L Anion Gap 8 (4-12) mmol/L BUN 16 (7-17) mg/dL Creatinine 1.00 (0.7-1.0) mg/dL Estim Creat Clear Calc 88 ml/min Estimated GFR 56 L (59 - ) Glucose 113 H (65-110) mg/dL Lactic Acid 1.9 (0.7-2.0) mmol/L Calcium 8.4 (8.4-10.2) mg/dL Magnesium 1.9 (1.6-2.3) mg/dL Total Bilirubin 1.2 (0.2-1.3) mg/dL AST 34 (14-36) U/L ALT 17 (6-35) U/L Alkaline Phosphatase 107 (38-126) U/L Troponin I < 0.012 (0.000-0.034) ng/mL NT-Pro-B Natriuret Pep 1480 H (19.9-100) pg/mL Total Protein 7.0 (6.3-8.2) g/dL Albumin 3.6 (3.5-5.1) g/dL Procalcitonin 3.9 ng/mL Urine Color Yellow (Yellow) Urine Appearance Cloudy H (Clear) Urine pH 5.5 (5.0-9.0) Ur Specific [place]in 1.020 (1.001-1.035) Urine Protein 2+ H (Negative) mg/dL Urine Glucose (UA) Negative (Negative) mg/dL Urine Ketones 3+ H (Negative) mg/dL Ur Blood (Man) 2+ H (Negative) Urine Nitrate Negative (Negative) Urine Bilirubin Negative (Negative) Urine Urobilinogen 1.0 (<2.0) mg/dL Add Ur Microanalysis Reviewed Leukocyte Esterase Rfl Negative (Negative) SEAN/UL Urine RBC 11-20 H (0-2) /hpf Urine WBC 0-5 (0-3) /hpf Ur Squamous Epith Cells Moderate (Few) /hpf Urine Bacteria None seen /hpf Urine Casts 11-20 Hyaline Casts Present (None) /lpf Urine Mucus Present /lpf Influenza A (RT-PCR) Negative (Negative) Influenza B (RT-PCR) Negative (Negative) RSV (RT-PCR) Negative (Negative) SARS-CoV-2 RNA (RT-PCR) Negative (Negative) Critical Care Time Critical Care Time Critical Care Time: Yes Total Critical Care Time: 30 Discharge Plan Discharge Clinical Impression: Atrial fibrillation, Cellulitis of left leg Patient Disposition: Still a Patient Condition: Stable Prescriptions: No Action sotalol 80 mg tablet 120 mg PO BID calcium carbonate [Calcium 600] 600 mg calcium (1,500 mg) tablet 600 mg PO DAILY Xarelto 20 mg Tablet 20 mg PO DAILY thiamine HCl (vitamin B1) [Vitamin B-1] 250 mg Tablet 250 mg PO DAILY ferrous gluconate 324 mg (37.5 mg iron) Tablet 324 mg PO DAILY Flintstones Complete Tablet,Chewable 2 tablet PO DAILY cyanocobalamin-methylcobalamin 600-600 mcg Tablet, Sublingual 5,000 tablet SUBLINGUAL DAILY triamcinolone acetonide 0.1 % cream 1 applic TOPICAL DAILY PRN (Reason: Itching) Qty: 30 0RF levothyroxine [Synthroid] 100 mcg tablet 100 mcg PO DAILY Qty: 90 3RF Follow-up/Referrals: Justice Ricci DO [Primary Care Provider] - Time of Disposition: 00:37
[2024-01-20 21:46] LABS: INR 1.3; Prothrombin Time 16.3 Seconds (11.1-14.7)
[2024-01-20 22:03] LABS: Lactic Acid Reflex 1.9 mmol/L (0.7-2.0)
[2024-01-20 22:19] LABS: Magnesium 1.9 mg/dL (1.6-2.3)
[2024-01-20 22:21] LABS: Influenza A QL RT-PCR Negative (Negative); Influenza B QL RT-PCR Negative (Negative); RSV RNA, RT-PCR Negative (Negative); SARS-CoV-2 RNA PCR Negative (Negative)
[2024-01-20 22:28] VITALS: PULSE 136
[2024-01-20] MEDS: SODIUM CHLORIDE 0.9% IV 1,000 ML 999 ML IV CONT (22:28)
[2024-01-20] MEDS: METOPROLOL TARTRATE INJ 5 MG/5 ML VIAL 2.5 MG IV PUSH (22:28)
[2024-01-20 22:32] LABS: NT Pro B Type Natriuretic Pept 1480 pg/mL (19.9-100); Troponin I < 0.012 ng/mL (0.000-0.034)
[2024-01-20 22:38] LABS: Procalcitonin 3.9 ng/mL
[2024-01-20 22:51] VITALS: PULSE 119; RESP 15; O2SAT 98
[2024-01-20 23:54] LABS: Add Urine Microscopic? YES; Appearance Urine Cloudy (Clear); Bacteria Urine None Seen /hpf; Bilirubin Urine Negative (Negative); Blood Urine 2+ (Negative); Color Urine Yellow (Yellow); Glucose Urine UA Negative (Negative); Hyaline Casts Urine Present /lpf; Ketones Urine 3+ mg/dL (Negative); Leukocyte Esterase Ur Negative LEU/UL (Negative); Mucus Urine Present /lpf; Need Manual Microscopic Reviewed; Nitrate Urine Negative (Negative); Protein Urine 2+ mg/dL (Negative); Squamous Epithelial Cell Urine Moderate /hpf (Few); WBC Urine 0-5 /hpf (0-3); pH Urine 5.5 (5.0-9.0)
[2024-01-21] VITALS (22 sets, daily range): BP systolic 122–143; BP diastolic 60–95; PULSE 103–126; RESP 16–20; TEMP 36.8–37.1; O2SAT 95–99; BMI 58.1
[2024-01-21] MEDS: POTASSIUM CHLORIDE 20 MEQ PACKET (FOR LIQUID) 40 MEQ PO (00:46)
[2024-01-21] MEDS: SODIUM CHLORIDE 0.9% IV 1,000 ML 999 ML IV CONT (00:46)
[2024-01-21] MEDS: ceFAZolin 1 GM/NS 50 ML 1 GM/50 ML BAG IVPB ×4 (00:46→23:41)
[2024-01-21] MEDS: SOTALOL HCL 80 MG TABLET PO (01:02)
[2024-01-21] MEDS: ACETAMINOPHEN 325 MG TABLET 650 MG PO ×2 (02:20→18:00)
--- NOTE | 2024-01-21 02:29 | PC.NURSE ---
This patient, Leora Mcghee, was admitted to IMU Room 210-01 at 0117. Patient/family oriented to hospital policies and general routines including ID bracelet, bed and alarms, visiting hours, pain management, procedures, bathroom and other care routines, personal items, smoking policy, room service/diet, and visiting hours. Information on how to activate the Rapid Response Team has been discussed. Patient/Family are encouraged to report perceived risks to care and to ask questions if they do not understand what they are told or what they should do.
[2024-01-21] MEDS: RIVAROXABAN 20 MG TABLET PO ×2 (04:03→20:44)
[2024-01-21] MEDS: SODIUM CHLORIDE 0.9% IV 1,000 ML 100 ML IV CONT (04:03)
[2024-01-21] MEDS: LEVOTHYROXINE SODIUM 100 MCG TABLET PO (05:31)
--- NOTE | 2024-01-21 06:21 | PM.IMHP ---
H&P: HPI History of Present Illness Date/Time: 01/21/24 02:30 Chief Complaint: Weakness, painful red rash to left leg Narrative: 63-year-old female with a past medical history of morbid obesity, chronic venous stasis dermatitis of the lower extremity, what looks like chronic lymphedema of the left lower extremity, hypothyroidism and longstanding history of atrial fibrillation on anticoagulation with Xarelto who presented to the ER with 5 days of weakness, subjective fevers, chills and painful erythematous rash to her left lower extremity. Patient reports that she started having chills on Tuesday (5 days ago). She did not check her temperature but the next day she noted marked erythema to the right lower extremity that started on the calf near her area of chronic venous stasis dermatitis. She was so ill on Tuesday and Tuesday that she was weak and could not get out of bed so she did not take her sotalol or Xarelto on those days. She noticed that the leg had also become more swollen compared to baseline. It was acutely painful to touch and erythema had progressively worsened and was circumferential. The erythema then started to climb up her leg to the medial and anterior knee. The pain is worse with movement, weight-bearing and touch. She tried some Tylenol for her pain and suspected fever. That Tylenol only provided minimal relief. She does report that she scraped at leg on the cart or when she was trying to get into the car the week prior. She has never had cellulitis before. She denies being told that she has a lymphedema but reports that her left leg is always more swollen than her right leg. Her sister does have a history of bilateral lower extremity lymphedema. Patient denies history of obstructive sleep apnea but has never had a sleep study. She does have history of pulmonary hypertension. Review of Systems Review of Systems: 12 systems were reviewed with pertinent positives and negatives per HPI. Except as documented in the HPI, all other systems were reviewed and are negative. [facility] Past Medical History Medical History (Updated 01/21/24 @ 08:00 by Za Chirinos DO) Chronic anticoagulation Chronic venous stasis dermatitis of left lower extremity Essential (primary) hypertension Heart failure with preserved ejection fraction Morbid obesity Morbid obesity with BMI of 50.0-59.9, adult Pulmonary hypertension Surgical History Surgical History (Updated 01/21/24 @ 07:27 by Za Chirinos DO) History of 2 sections History of tubal ligation Hx of cholecystectomy S/P gastric bypass Family History Family History Sibling Hypertension Mother Atrial fibrillation Hypertension Breast cancer Father Pulmonary fibrosis Angina at rest Sibling Lymphedema Grandparent Diabetes mellitus Social History Social History (Updated 01/21/24 @ 07:30 by Za Chirinos DO) Social History: The patient is x2. She lives in her own home and her mother lives with her. She has a pit bull at home. She has 1 daughter and 1 son. She works for [employer] in a [employer]. She is a lifelong nonsmoker. She used to occasionally drink alcohol but now only rarely drinks alcohol. She denies illicit substance use. Code status: Full code Surrogate decision makers: Both her daughter and her son. She does not have advanced directives in place. Smoking status: Never smoker Second hand tobacco smoke exposure: No Alcohol intake: never Substance use: never Do You Feel Safe in your Home?: Yes Lack of Transportation: No Lack of Food: Never True Current Housing: I Have Housing Concerned About Future Housing: No Difficulty Paying Gas/Electric Bills: No Difficulty Paying for Meds: No Currently Unemployed: No Education: Decline to Answer Difficulty w/ Childcare or Family Care: No Gender identity (if verbalized by the patient): Female Spiritual care concerns: No Agree to blood products: Yes Meds Home Medications and Allergies Home Medications Medication Instructions Recorded Confirmed Type pediatric multivitamin no.76 2 tablet PO DAILY 04/03/19 01/21/24 History (Lyn Complete chewable tablet) rivaroxaban 20 mg tablet (Xarelto) 20 mg PO HS 04/03/19 01/21/24 History calcium carbonate (Calcium 600) 600 mg PO DAILY 08/27/22 01/21/24 History levothyroxine 100 mcg tablet 100 mcg PO DAILY #90 tabs 03/28/23 01/21/24 Rx (Synthroid) cyanocobalamin (vitamin B-12) 5,000 mcg PO DAILY 01/21/24 01/21/24 History 5,000 mcg disintegrating tablet ferrous gluconate 225 mg (27 mg 225 mg PO DAILY 01/21/24 01/21/24 History iron) tablet sotalol 120 mg tablet 120 mg PO Q12H 01/21/24 01/21/24 History thiamine HCl (vitamin B1) 250 mg 250 mg PO DAILY 01/21/24 01/21/24 History tablet Allergies Allergy/AdvReac Type Severity Reaction Status Date / Time No Known Allergies Allergy Verified 01/21/24 01:43 Vital Signs Vital Signs - 24 hr 01/20/24 20:50 01/20/24 22:28 01/20/24 22:51 Temperature 97.2 F L Pulse Rate 126 H 136 H 119 H Respiratory Rate 16 15 Blood Pressure 152/96 H Pulse Oximetry 99 98 Oxygen Delivery Room Air 01/21/24 00:08 01/21/24 01:02 01/21/24 01:17 Temperature 98.3 F Pulse Rate 110 H 115 H 103 H Respiratory Rate 16 20 Blood Pressure 132/76 138/95 H Pulse Oximetry 99 97 Oxygen Delivery 01/21/24 02:00 01/21/24 01:25 01/21/24 03:35 Temperature 98.8 F Pulse Rate 112 H 119 H Respiratory Rate 20 Blood Pressure 122/61 Pulse Oximetry 95 Oxygen Delivery Room Air 01/21/24 04:00 01/21/24 05:58 01/21/24 04:00 Temperature Pulse Rate 115 H 123 H Respiratory Rate Blood Pressure Pulse Oximetry Oxygen Delivery Room Air Exam Narrative: Weight 168.3 kg BMI 58.1 Const: Other: Morbidly obese, no acute distress, appears stated age, well groomed HENMT: Other: Head is normocephalic atraumatic, mucous membranes are tacky, crowded posterior oropharynx, no oral pharyngeal erythema Eyes: Other: No scleral icterus, no conjunctival pallor, pupils are equal and reactive Neck: Other: Large neck circumference, supple, no JVD Resp: Other: Clear to auscultation bilaterally anterior brooks, no increased work of breathing Cardio: Other: Irregularly irregular, tachycardic, 2+ bilateral radial and pedal pulses, pulse in the left pedal is slightly stronger than the pulse in the right pedal GI: Other: Obese, nontender, positive bowel sounds Skin: Other: Marked erythema near circumferential of the left lower extremity including the toes top of the foot ankle and forefoot which are all hot to touch erythema extends up to just below the knee anteriorly and then extends further up the medial in the into the lower thigh the erythema at the knee and thigh is more violaceous in color, patient has skin changes consistent with chronic venous stasis dermatitis of the left anterior whiting/calf Neuro: Other: Alert oriented x4, speech is clear, no facial asymmetry, no localizing neurologic deficits noted during the course of conversation Extrem: Other: Patient is lymphedema chronic venous stasis changes of the left lower extremity left leg is more swollen than the right at baseline per patient but is increased edema since onset of current symptoms, she has severe tenderness to palpation of the ball of the foot, dorsum of the foot anterior and posterior calf and lateral left knee Psych: Other: Appropriate mood and affect, pleasant and cooperative, judgment and insight intact H&P: Results Labs Labs: Laboratory Tests 01/20/24 21:09 01/20/24 21:09 01/20/24 01/20/24 01/20/24 21:09 21:40 23:36 WBC 12.8 H RBC 4.75 Hgb 14.5 Hct 43.4 MCV 91.4 MCH 30.5 MCHC 33.4 RDW 13.2 Plt Count 205 MPV 11.7 H Immature Gran % (Auto) 1.1 H Neut % (Auto) 85.8 H Lymph % (Auto) 7.0 L [place] % (Auto) 5.6 Eos % (Auto) 0.1 Baso % (Auto) 0.4 Lymph # (Auto) 0.90 [place] # (Auto) 0.7 H Eos # (Auto) 0.0 Baso # (Auto) 0.1 Abs Immat Gran (auto) 0.14 H Absolute Neuts (auto) 11.0 H Absolute Nucleated RBC 0.000 Nucleated RBC % 0.0 PT 16.3 H INR 1.3 APTT 47.0 H Sodium 133 L Potassium 3.1 L Chloride 95 L Carbon Dioxide 30 Anion Gap 8 BUN 16 Creatinine 1.00 Estim Creat Clear Calc 88 Estimated GFR 56 L Glucose 113 H Lactic Acid 1.9 Calcium 8.4 Magnesium 1.9 Total Bilirubin 1.2 AST 34 ALT 17 Alkaline Phosphatase 107 Troponin I < 0.012 NT-Pro-B Natriuret Pep 1480 H Total Protein 7.0 Albumin 3.6 Procalcitonin 3.9 Urine Color Yellow Urine Appearance Cloudy H Urine pH 5.5 Ur Specific [place] 1.020 Urine Protein 2+ H Urine Glucose (UA) Negative Urine Ketones 3+ H Ur Blood (Man) 2+ H Urine Nitrate Negative Urine Bilirubin Negative Urine Urobilinogen 1.0 Add Ur Microanalysis Reviewed Leukocyte Esterase Rfl Negative Urine RBC 11-20 H Urine WBC 0-5 Ur Squamous Epith Cells Moderate Urine Bacteria None seen Urine Casts 11-20 Hyaline Casts Present Urine Mucus Present Influenza A (RT-PCR) Negative Influenza B (RT-PCR) Negative RSV (RT-PCR) Negative SARS-CoV-2 RNA (RT-PCR) Negative Impressions Chest X-Ray 01/20/24 21:43 IMPRESSION: No acute cardiopulmonary pathology. EKG: Personally reviewed and interpreted. Cardiology interpretation listed below Measurements Intervals [place] Rate: 128 P: 0 ME: 0 QRS: 36 QRSD: 94 T: 22 QT: 305 QTc: 446 Interpretive Statements ATRIAL FIBRILLATION WITH RAPID VENTRICULAR RESPONSE MINIMAL Q WAVES- INFERIOR LEADS BASELINE ARTIFACT- I, II, III, AVR, AVL, AVF, V1-V2 ABNORMAL ECG No previous ECG available for comparison Assessment and Plan Assessment and plan (1) Cellulitis of left leg: Code(s): L03.116 - Cellulitis of left lower limb Status: Acute (2) Lymphedema of left lower extremity: Code(s): I89.0 - Lymphedema, not elsewhere classified Status: Acute (3) Atrial fibrillation with rapid ventricular response: Code(s): I48.91 - Unspecified atrial fibrillation Status: Acute (4) Acute dehydration: Code(s): E86.0 - Dehydration Status: Acute (5) Essential (primary) hypertension: Code(s): I10 - Essential (primary) hypertension Status: Acute (6) Chronic anticoagulation: Code(s): Z79.01 - residential (current) use of anticoagulants Status: Acute (7) Hypothyroidism: Qualifiers: Hypothyroidism type: unspecified Qualified Code(s): E03.9 - Hypothyroidism, unspecified Code(s): E03.9 - Hypothyroidism, unspecified Status: Acute (8) Morbid obesity with BMI of 50.0-59.9, adult: Code(s): E66.01 - Morbid (severe) obesity due to excess calories; Z68.43 - Body mass index [BMI] 50.0-59.9, adult Status: Acute Plan Patient has extensive cellulitis of the left lower extremity complicating chronic venous stasis dermatitis and lymphedema. Patient was started on Ancef in the ER. She reports that the erythema over extremity has already started to improve. Blood cultures have been obtained and are pending. Patient does fit SIRS criteria with cellulitis, tachycardia and leukocytosis. She did not receive a 30 mL/kilos bolus due to history of CHF, pulmonary hypertension in setting of acute AFib RVR.. Although I believe a portion of the patient's tachycardia was due to dehydration her heart rate did respond well to 2 L bolus. Will continue maintenance IV fluids. Her RVR is also in part due to missing a couple of doses of sotalol. The patient's home sotalol has been resumed. Will also continue patient's home Xarelto. Will continue monitor patient in IMU. AFib was also probably exacerbated by mild hypokalemia. 40 mEq potassium chloride was provided oral supplementation. Will repeat electrolyte panel and magnesium level in a.m. and replace as appropriate. Will also repeat CBC with a.m. labs. Will resume as appropriate remainder the patient's home medications including levothyroxine. Patient has been admitted as inpatient status and will require greater than 2 midnight stay for stabilization acute cellulitis and exacerbation of AFib with acute rapid ventricular response. Quality VTE Prophylaxis VTE prophylaxis: pharmacologic ordered (Continue home Xarelto) Hospitalist [facility] Advance Care Plan I have confirmed that the patient's Advanced Care Plan is present, code status is documented, or surrogate decision maker is listed in patient medical record.: Yes Medication Reconciliation I have utilized all available resources to obtain, update and review the patients current medications (includes all prescriptions, OTC, herbals, cannabis, and nutritional supplements).: Yes
[2024-01-21] MEDS: THIAMINE HCL 100 MG TABLET 200 MG (08:00)
[2024-01-21 08:44] LABS: Basophils Absolute Auto 0.1 K/mm3 (0.0-0.1); Basophils Percent Auto 0.4 % (0.2-1.2); Eosinophils Percent Auto 0.1 % (0-4.4); Hematocrit 41.9 % (37.0-47.0); Hemoglobin 13.8 g/dL (12.0-15.0); Immature Granulocyte Percent A 1.2 % (0-0.5); Lymphocytes Absolute Auto 1.48 K/mm3 (0.9-3.2); Lymphocytes Percent Auto 8.9 % (18.3-44.2); Mean Corpuscular HGB Conc 32.9 g/dl (32-36); Mean Corpuscular Hemoglobin 30.5 pg (26-34); Mean Corpuscular Volume 92.7 fl (80-100); Mean Platelet Volume 11.4 fl (7.4-10.4); Monocytes Absolute Auto 1.1 K/mm3 (0.1-0.6); Monocytes Percent Auto 6.5 % (2.6-8.5); Neutrophils Absolute Auto 13.7 K/mm3 (1.3-6.7); Neutrophils Percent Auto 82.9 % (45.5-73.1); Platelet Count Result 223 k/mm3 (150-375); Red Blood Count 4.52 M/mm3 (4.2-5.4); Red Cell Distribution Width 13.4 % (11.5-14.5); White Blood Count 16.6 K/mm3 (4.5-10.0)
[2024-01-21 09:01] LABS: Anion Gap 8 mmol/L (4-12); Blood Urea Nitrogen 14 mg/dL (7-17); Calcium 8.1 mg/dL (8.4-10.2); Carbon Dioxide 22 mmol/L (22-30); Chloride 102 mmol/L (98-107); Estimated CRCL calculation 120 ml/min; Estimated Glomerular Filt Rate > 60; Glucose 141 mg/dL (65-110); Potassium 3.3 mmol/L (3.4-5.0); Sodium 132 mmol/L (137-145)
[2024-01-21] MEDS: FERROUS GLUCONATE 324 MG TABLET PO (09:04)
[2024-01-21] MEDS: CYANOCOBALAMIN 1,000 MCG TABLET 5000 MCG PO (09:04)
[2024-01-21] MEDS: SOTALOL HCL 40 MG, SOTALOL HCL 80 MG 120 MG PO ×2 (09:04→20:44)
[2024-01-21] MEDS: CALCIUM CARBONATE (OSCAL) 500 MG TABLET PO (09:05)
[2024-01-21] MEDS: MULTIVITS W-FE,MIN CHEWABLE TABLET 2 TABLET PO (09:05)
[2024-01-21] MEDS: THIAMINE HCL 250 MG PO (09:05)
--- NOTE | 2024-01-21 12:09 | P.PNIM_ITS ---
Progress Note: A&P Assessment and Plan (1) Cellulitis of left leg: Code(s): L03.116 - Cellulitis of left lower limb Status: Acute (2) Lymphedema of left lower extremity: Code(s): I89.0 - Lymphedema, not elsewhere classified Status: Acute (3) Atrial fibrillation with rapid ventricular response: Code(s): I48.91 - Unspecified atrial fibrillation Status: Acute (4) Acute dehydration: Code(s): E86.0 - Dehydration Status: Acute (5) Essential (primary) hypertension: Code(s): I10 - Essential (primary) hypertension Status: Acute (6) Chronic anticoagulation: Code(s): Z79.01 - intermission coordinator (current) use of anticoagulants Status: Acute (7) Hypothyroidism: Qualifiers: Hypothyroidism type: unspecified Qualified Code(s): E03.9 - Hypoth yroidism, unspecified Code(s): E03.9 - Hypothyroidism, unspecified Status: Acute (8) Morbid obesity with BMI of 50.0-59.9, adult: Code(s): E66.01 - Morbid (severe) obesity due to excess calories; Z68.43 - Body mass index [BMI] 50.0-59.9, adult Status: Acute Plan Sepsis from Cellulitis Patient is still tachycardic; tachypnea and leukocytosis improving Patient has erythema on the left leg Blood culture pending Continue cefazolin Monitor. Atrial fibrillation with rapid ventricular response Most likely from sepsis Improved with IV fluid Continue home sotalol monitor. If persist we will start patient on Cardizem infusion. Continue rivaroxaban. Hypokalemia Replace, monitor on presents accordingly. Magnesium is 2.0 Monitor History of CHF Unspecified Titrate her medications with clinical course Monitor Chronic lymphedema Physical therapy consulted for lymphedema wraps. DVT prophylaxis on rivaroxaban. Subjective Date/time seen: 01/21/24 12:09 Interval history: COmfortable at bedside Review of Systems Review of Systems: 12 systems were reviewed with pertinent positives and negatives per HPI. Except as documented in the HPI, all other systems were reviewed and are negative. Exam Narrative: Weight 168.3 kg BMI 58.1 Const: Other: Morbidly obese, no acute distress, appears stated age, well groomed HENMT: Other: Head is normocephalic atraumatic, mucous membranes are tacky, crowded posterior oropharynx, no oral pharyngeal erythema Eyes: Other: No scleral icterus, no conjunctival pallor, pupils are equal and reactive Neck: Other: Large neck circumference, supple, no JVD Resp: Other: Clear to auscultation bilaterally anterior brooks, no increased work of breathing Cardio: Other: Irregularly irregular, tachycardic, 2+ bilateral radial and pedal pulses, pulse in the left pedal is slightly stronger than the pulse in the right pedal GI: Other: Obese, nontender, positive bowel sounds Skin: Other: Marked erythema near circumferential of the left lower extremity including the toes top of the foot ankle and forefoot which are all hot to touch erythema extends up to just below the knee anteriorly and then extends further up the medial in the into the lower thigh the erythema at the knee and thigh is more violaceous in color, patient has skin changes consistent with chronic venous stasis dermatitis of the left anterior whiting/calf Neuro: Other: Alert oriented x4, speech is clear, no facial asymmetry, no localizing neurologic deficits noted during the course of conversation Extrem: Other: Patient is lymphedema chronic venous stasis changes of the left lower extremity left leg is more swollen than the right at baseline per patient but is increased edema since onset of current symptoms, she has severe tenderness to palpation of the ball of the foot, dorsum of the foot anterior and posterior calf and lateral left knee Psych: Other: Appropriate mood and affect, pleasant and cooperative, judgment and insight intact Objective Data Vital Signs Vital Signs: Vital Signs - 24 hr 01/20/24 20:50 01/20/24 22:28 01/20/24 22:51 Temperature 97.2 F L Pulse Rate 126 H 136 H 119 H Respiratory Rate 16 15 Blood Pressure 152/96 H Pulse Oximetry 99 98 Oxygen Delivery Room Air 01/21/24 00:08 01/21/24 01:02 01/21/24 01:17 Temperature 98.3 F Pulse Rate 110 H 115 H 103 H Respiratory Rate 16 20 Blood Pressure 132/76 138/95 H Pulse Oximetry 99 97 Oxygen Delivery 01/21/24 02:00 01/21/24 01:25 01/21/24 03:35 Temperature 98.8 F Pulse Rate 112 H 119 H Respiratory Rate 20 Blood Pressure 122/61 Pulse Oximetry 95 Oxygen Delivery Room Air 01/21/24 04:00 01/21/24 05:58 01/21/24 04:00 Temperature Pulse Rate 115 H 123 H Respiratory Rate Blood Pressure Pulse Oximetry Oxygen Delivery Room Air 01/21/24 08:13 01/21/24 09:04 01/21/24 08:00 Temperature 98.8 F Pulse Rate 114 H 126 H 126 H Respiratory Rate 20 20 Blood Pressure 126/74 Pulse Oximetry 99 99 Oxygen Delivery Room Air 01/21/24 08:00 01/21/24 10:00 01/21/24 11:34 Temperature 98.6 F Pulse Rate 126 H 115 H 126 H Respiratory Rate 20 Blood Pressure 132/74 Pulse Oximetry 99 Oxygen Delivery Intake/Output Intake/Output: Intake & Output 01/18/24 01/19/24 01/20/24 01/21/24 23:59 23:59 23:59 23:59 Intake Total 1000 1780 Balance 1000 1780 Meds/Results Medications: Active Medications Generic Name Dose Route Start Last Admin Trade Name Freq PRN Reason Stop Dose Admin Acetaminophen 650 mg 01/21/24 01:41 01/21/24 02:20 Acetaminophen 325 Mg Tablet PO 650 mg Q4H PRN Administration Mild Pain (1-3) or Fever Calcium Carbonate 500 mg 01/21/24 09:00 01/21/24 09:05 Calcium Carbonate (Oscal) 500 Mg Tablet PO 500 mg QAM SUN Administration Cyanocobalamin 5,000 mcg 01/21/24 09:00 01/21/24 09:04 Cyanocobalamin 1,000 Mcg Tablet PO 5,000 mcg DAILY SUN Administration Ferrous Gluconate 324 mg 01/21/24 08:00 01/21/24 09:04 Ferrous Gluconate 324 Mg Tablet PO 324 mg DAILY@0800 SUN Administration Cefazolin Sodium 1 gm in 50 mls @ 100 mls/hr 01/21/24 08:00 01/21/24 09:05 Ancef 1 Gm/Ns 50 Ml IVPB 100 mls/hr Q8H SUN Administration Sodium Chloride 1,000 mls @ 100 mls/hr 01/21/24 03:55 01/21/24 04:03 Normal Saline Iv IV CONT 100 mls/hr .Q10H SUN Administration Levothyroxine Sodium 100 mcg 01/21/24 06:30 01/21/24 05:31 Levothyroxine Sodium 100 Mcg Tablet PO 100 mcg DAILY@0630 SUN Administration Multivitamins/Minerals 2 tablet 01/21/24 09:00 01/21/24 09:05 Multivits W-Fe,Min Chewable Tablet PO 2 tablet DAILY [facility] Administration Rivaroxaban 20 mg 01/21/24 21:00 Rivaroxaban 20 Mg Tablet PO HS [facility] Sotalol HCl 40 mg/ Sotalol HCl 120 mg 01/21/24 09:00 01/21/24 09:04 80 mg PO 120 mg Q12HR [facility] Administration Thiamine HCl 200 mg/ Thiamine 250 mg 01/21/24 09:00 01/21/24 09:05 HCl 50 mg PO 250 mg DAILY SUN Administration Radiology Results: ITS Impressions Chest X-Ray 01/20/24 21:43 IMPRESSION: No acute cardiopulmonary pathology. Labs Labs: Laboratory Results - last 24 hr 01/20/24 01/20/24 01/20/24 21:09 21:40 23:36 WBC 12.8 H RBC 4.75 Hgb 14.5 Hct 43.4 MCV 91.4 MCH 30.5 MCHC 33.4 RDW 13.2 Plt Count 205 MPV 11.7 H Immature Gran % (Auto) 1.1 H Neut % (Auto) 85.8 H Lymph % (Auto) 7.0 L [place] % (Auto) 5.6 Eos % (Auto) 0.1 Baso % (Auto) 0.4 Lymph # (Auto) 0.90 [place] # (Auto) 0.7 H Eos # (Auto) 0.0 Baso # (Auto) 0.1 Abs Immat Gran (auto) 0.14 H Absolute Neuts (auto) 11.0 H Absolute Nucleated RBC 0.000 Nucleated RBC % 0.0 PT 16.3 H INR 1.3 APTT 47.0 H Sodium 133 L Potassium 3.1 L Chloride 95 L Carbon Dioxide 30 Anion Gap 8 BUN 16 Creatinine 1.00 Estim Creat Clear Calc 88 Estimated GFR 56 L Glucose 113 H Lactic Acid 1.9 Calcium 8.4 Magnesium 1.9 Total Bilirubin 1.2 AST 34 ALT 17 Alkaline Phosphatase 107 Troponin I < 0.012 NT-Pro-B Natriuret Pep 1480 H Total Protein 7.0 Albumin 3.6 Procalcitonin 3.9 Urine Color Yellow Urine Appearance Cloudy H Urine pH 5.5 Ur Specific [place] 1.020 Urine Protein 2+ H Urine Glucose (UA) Negative Urine Ketones 3+ H Ur Blood (Man) 2+ H Urine Nitrate Negative Urine Bilirubin Negative Urine Urobilinogen 1.0 Add Ur Microanalysis Reviewed Leukocyte Esterase Rfl Negative Urine RBC 11-20 H Urine WBC 0-5 Ur Squamous Epith Cells Moderate Urine Bacteria None seen Urine Casts 11-20 Hyaline Casts Present Urine Mucus Present Influenza A (RT-PCR) Negative Influenza B (RT-PCR) Negative RSV (RT-PCR) Negative SARS-CoV-2 RNA (RT-PCR) Negative 01/21/24 08:21 WBC 16.6 H RBC 4.52 Hgb 13.8 Hct 41.9 MCV 92.7 MCH 30.5 MCHC 32.9 RDW 13.4 Plt Count 223 MPV 11.4 H Immature Gran % (Auto) 1.2 H Neut % (Auto) 82.9 H Lymph % (Auto) 8.9 L [place] % (Auto) 6.5 Eos % (Auto) 0.1 Baso % (Auto) 0.4 Lymph # (Auto) 1.48 [place] # (Auto) 1.1 H Eos # (Auto) 0.0 Baso # (Auto) 0.1 Abs Immat Gran (auto) 0.20 H Absolute Neuts (auto) 13.7 H Absolute Nucleated RBC 0.000 Nucleated RBC % 0.0 PT INR APTT Sodium 132 L Potassium 3.3 L Chloride 102 Carbon Dioxide 22 Anion Gap 8 BUN 14 Creatinine 0.70 Estim Creat Clear Calc 120 Estimated GFR > 60 Glucose 141 H Lactic Acid Calcium 8.1 L Magnesium 2.0 Total Bilirubin AST ALT Alkaline Phosphatase Troponin I NT-Pro-B Natriuret Pep Total Protein Albumin Procalcitonin Urine Color Urine Appearance Urine pH Ur Specific [place] Urine Protein Urine Glucose (UA) Urine Ketones Ur Blood (Man) Urine Nitrate Urine Bilirubin Urine Urobilinogen Add Ur Microanalysis Leukocyte Esterase Rfl Urine RBC Urine WBC Ur Squamous Epith Cells Urine Bacteria Urine Casts Hyaline Casts Urine Mucus Influenza A (RT-PCR) Influenza B (RT-PCR) RSV (RT-PCR) SARS-CoV-2 RNA (RT-PCR) Quality VTE Prophylaxis VTE prophylaxis: pharmacologic ordered (Continue home Xarelto)
[2024-01-21] MEDS: POTASSIUM CHLORIDE INJ 40 MEQ in SODIUM CHLORIDE 0.9% IV 500 ML 130 MEQ IVPB (13:00)
--- NOTE | 2024-01-21 18:49 | PC.NURSE ---
called Dr. Holm x2, to inform that IV fluids was paused due to increased BLE swelling, pain and reduced mobility. no answer at this time.
[2024-01-21] MEDS: POTASSIUM CHLORIDE 20 MEQ ER TABLET 40 MEQ PO (20:43)
[2024-01-21] MEDS: HYDROcodone/acetaminophen (*CRX) 5-325 MG TABLET 1 TAB PO (20:44)
[2024-01-22] VITALS (26 sets, daily range): BP systolic 112–137; BP diastolic 59–86; PULSE 85–130; RESP 14–20; TEMP 36.6–37.2; O2SAT 97–100
[2024-01-22] MEDS: HYDROcodone/acetaminophen (*CRX) 5-325 MG TABLET 1 TAB PO ×3 (00:14→20:45)
[2024-01-22 04:57] LABS: Basophils Absolute Auto 0.1 K/mm3 (0.0-0.1); Basophils Percent Auto 0.8 % (0.2-1.2); Eosinophils Percent Auto 0.2 % (0-4.4); Hematocrit 40.4 % (37.0-47.0); Hemoglobin 13.1 g/dL (12.0-15.0); Immature Granulocyte Absolute 0.38 K/mm3 (0.00-0.031); Immature Granulocyte Percent A 3.2 % (0-0.5); Lymphocytes Percent Auto 13.5 % (18.3-44.2); Mean Corpuscular HGB Conc 32.4 g/dl (32-36); Mean Corpuscular Hemoglobin 30.3 pg (26-34); Mean Corpuscular Volume 93.5 fl (80-100); Mean Platelet Volume 11.2 fl (7.4-10.4); Monocytes Absolute Auto 1.2 K/mm3 (0.1-0.6); Monocytes Percent Auto 9.7 % (2.6-8.5); Neutrophils Absolute Auto 8.6 K/mm3 (1.3-6.7); Neutrophils Percent Auto 72.6 % (45.5-73.1); Platelet Count Result 205 k/mm3 (150-375); Red Blood Count 4.32 M/mm3 (4.2-5.4); Red Cell Distribution Width 13.3 % (11.5-14.5); White Blood Count 11.8 K/mm3 (4.5-10.0)
[2024-01-22 05:11] LABS: Alanine Aminotransferase 11 U/L (6-35); Albumin Level 2.9 g/dL (3.5-5.1); Alkaline Phosphatase 99 U/L (38-126); Anion Gap 2 mmol/L (4-12); Aspartate Amino Transferase 25 U/L (14-36); Bilirubin,Total 0.7 mg/dL (0.2-1.3); Blood Urea Nitrogen 12 mg/dL (7-17); Calcium 7.8 mg/dL (8.4-10.2); Carbon Dioxide 28 mmol/L (22-30); Chloride 102 mmol/L (98-107); Estimated CRCL calculation 139 ml/min; Estimated Glomerular Filt Rate > 60; Glucose 116 mg/dL (65-110); Magnesium 2.1 mg/dL (1.6-2.3); Potassium 3.3 mmol/L (3.4-5.0); Sodium 132 mmol/L (137-145)
[2024-01-22] MEDS: LEVOTHYROXINE SODIUM 100 MCG TABLET PO (05:55)
[2024-01-22] MEDS: MULTIVITS W-FE,MIN CHEWABLE TABLET 2 TABLET PO (08:48)
[2024-01-22] MEDS: SOTALOL HCL 40 MG, SOTALOL HCL 80 MG 120 MG PO ×2 (08:48→20:41)
[2024-01-22] MEDS: THIAMINE HCL 250 MG PO (08:49)
[2024-01-22] MEDS: CALCIUM CARBONATE (OSCAL) 500 MG TABLET PO (08:50)
[2024-01-22] MEDS: ceFAZolin 1 GM/NS 50 ML 1 GM/50 ML BAG IVPB ×3 (08:50→23:36)
[2024-01-22] MEDS: FERROUS GLUCONATE 324 MG TABLET PO (08:50)
--- NOTE | 2024-01-22 09:32 | ECG_ITS ---
Test Date: 2024-01-22 09:44:57 Measurements Intervals [place] Rate: 117 P: 0 MD: 0 QRS: 36 QRSD: 108 T: 18 QT: 343 QTc: 480 Interpretive Statements ATRIAL FIBRILLATION WITH RAPID VENTRICULAR RESPONSE ABNORMAL RHYTHM ECG Compared to ECG 01/20/2024 20:56:56 No significant changes Electronically Signed On 01-22-2024 12:17:11 SURGICAL SERVICES MANAGER by Jaxon Beck M.D.
--- NOTE | 2024-01-22 11:17 | PM.CNCAR ---
Assessment and Plan Assessment and plan (1) Atrial fibrillation with rapid ventricular response: Code(s): I48.91 - Unspecified atrial fibrillation Status: Acute Plan Left lower extremity cellulitis on top of lymphedema AFib with RVR likely triggered by sepsis Plan Continue oral anticoagulation Xarelto Continue sotalol Can add diltiazem 30 mg TID for heart rate control while she is in the hospital It is expected the heart rate would be higher in the hospital secondary to underlying infection. History of Present Illness History of Present Illness Consult date/time: 01/22/24 11:17 Reason For Visit: LEFT LOWER EXTREMITY CELLULITIS,ATRIAL FIBRILLATIO Narrative: 63-year-old female patient presents to the hospital was lethargy chills, feeling hot and possible fever, associated measure her temperature. She also noticed swelling in her legs left worse than right associated with erythema tenderness and pain. She has history of lymphedema. History of atrial fibrillation heart rate has been controlled at home 60 to 70s has been oral anticoagulation. Review of Systems Review of Systems: All systems reviewed & are unremarkable except as noted in HPI and below PMFSH Past Medical History Medical History (Updated 01/21/24 @ 08:00 by Za Chirinos DO) Chronic anticoagulation Chronic venous stasis dermatitis of left lower extremity Essential (primary) hypertension Heart failure with preserved ejection fraction Morbid obesity Morbid obesity with BMI of 50.0-59.9, adult Pulmonary hypertension Surgical History Surgical History (Updated 01/21/24 @ 07:27 by Za Chirinos DO) History of 2 sections History of tubal ligation Hx of cholecystectomy S/P gastric bypass Family History Family History Sibling Hypertension Mother Atrial fibrillation Hypertension Breast cancer Father Pulmonary fibrosis Angina at rest Sibling Lymphedema Grandparent Diabetes mellitus Social History Social History (Updated 01/21/24 @ 07:30 by Za Chirinos DO) Social History: The patient is x2. She lives in her own home and her mother lives with her. She has a pit bull at home. She has 1 daughter and 1 son. She works for [employer] in a [employer]. She is a lifelong nonsmoker. She used to occasionally drink alcohol but now only rarely drinks alcohol. She denies illicit substance use. Code status: Full code Surrogate decision makers: Both her daughter and her son. She does not have advanced directives in place. Smoking status: Never smoker Second hand tobacco smoke exposure: No Alcohol intake: never Substance use: never Do You Feel Safe in your Home?: Yes Lack of Transportation: No Lack of Food: Never True Current Housing: I Have Housing Concerned About Future Housing: No Difficulty Paying Gas/Electric Bills: No Difficulty Paying for Meds: No Currently Unemployed: No Education: Decline to Answer Difficulty w/ Childcare or Family Care: No Gender identity (if verbalized by the patient): Female Spiritual care concerns: No Agree to blood products: Yes Meds Home Medications and Allergies Home Medications Medication Instructions Recorded Confirmed Type pediatric multivitamin no.76 2 tablet PO DAILY 04/03/19 01/21/24 History (Flintstones Complete chewable tablet) rivaroxaban 20 mg tablet (Xarelto) 20 mg PO HS 04/03/19 01/21/24 History calcium carbonate (Calcium 600) 600 mg PO DAILY 08/27/22 01/21/24 History levothyroxine 100 mcg tablet 100 mcg PO DAILY #90 tabs 03/28/23 01/21/24 Rx (Synthroid) cyanocobalamin (vitamin B-12) 5,000 mcg PO DAILY 01/21/24 01/21/24 History 5,000 mcg disintegrating tablet ferrous gluconate 225 mg (27 mg 225 mg PO DAILY 01/21/24 01/21/24 History iron) tablet sotalol 120 mg tablet 120 mg PO Q12H 01/21/24 01/21/24 History thiamine HCl (vitamin B1) 250 mg 250 mg PO DAILY 01/21/24 01/21/24 History tablet Allergies Allergy/AdvReac Type Severity Reaction Status Date / Time No Known Allergies Allergy Verified 01/21/24 01:43 Vital Signs Vital Signs - 24 hr 01/21/24 11:34 01/21/24 12:00 01/21/24 12:00 Temperature 37.0 C Pulse Rate 126 H 126 H 126 H Respiratory Rate 20 20 Blood Pressure 132/74 Pulse Oximetry 99 99 Oxygen Delivery Room Air 01/21/24 13:40 01/21/24 16:45 01/21/24 16:55 Temperature 37.1 C Pulse Rate 126 H 110 H 110 H Respiratory Rate 20 20 Blood Pressure 126/60 Pulse Oximetry 97 97 Oxygen Delivery Room Air 01/21/24 16:00 01/21/24 16:00 01/21/24 17:27 Temperature Pulse Rate 110 H 110 H 110 H Respiratory Rate 20 Blood Pressure Pulse Oximetry 97 Oxygen Delivery Room Air 01/21/24 20:08 01/21/24 20:00 01/21/24 20:44 Temperature 36.9 C Pulse Rate 117 H 112 H Respiratory Rate 20 Blood Pressure 143/68 H Pulse Oximetry 98 Oxygen Delivery Room Air 01/22/24 00:08 01/22/24 00:00 01/21/24 20:00 Temperature 36.6 C Pulse Rate 100 118 H Respiratory Rate 20 Blood Pressure 137/74 Pulse Oximetry 98 Oxygen Delivery Room Air 01/21/24 22:00 01/22/24 00:00 01/22/24 02:00 Temperature Pulse Rate 108 H 118 H 112 H Respiratory Rate Blood Pressure Pulse Oximetry Oxygen Delivery 01/22/24 03:40 01/22/24 03:55 01/22/24 04:00 Temperature 36.8 C Pulse Rate 107 H 119 H Respiratory Rate 20 Blood Pressure 122/59 L Pulse Oximetry 98 Oxygen Delivery Room Air 01/22/24 05:58 01/22/24 07:38 01/22/24 08:48 Temperature 37.1 C Pulse Rate 110 H 112 H 119 H Respiratory Rate 16 Blood Pressure 123/78 Pulse Oximetry 97 Oxygen Delivery 01/22/24 10:30 Temperature Pulse Rate Respiratory Rate Blood Pressure Pulse Oximetry Oxygen Delivery Room Air Exam Const: General: comfortable and no acute distress Other: Able to lie flat HENMT: Face/Nose/Sinus: Normal nares present and no epistaxis Mouth: Yes moist mucous membranes Eyes: Sclera: sclerae normal Pupils: Equal, round and reactive pupils present Neck: Neck: supple and no JVD Carotids: no bruits Resp: Auscultation: clear to auscultation bilaterally and lung sounds not diminished Other: No chest wall tenderness Cardio: Rate: tachycardic Rhythm: abnormal rhythm irregularly irregular Heart sounds: no gallops, no murmurs and no rubs GI: GI Palp: Yes Soft to palpation and No Tenderness to palpation present (GI) Auscultation: normal bowel sounds Skin: General skin exam: normal color, rashes and/or lesions noted and erythema (Left lower extremity edema and erythema) Other: Warm Neuro: Cranial nerves: Yes Equal, round and reactive pupils present Speech: normal speech Other: No obvious focal deficit or facial asymmetry Extrem: General: no edema Other: Normal capillary refills Results Labs and Meds 01/22/24 04:25 01/22/24 04:25 Lab results: Cardiac Enzymes 01/22/24 Range/Units 04:25 AST 25 (14-36) U/L CBC 01/22/24 Range/Units 04:25 WBC 11.8 H (4.5-10.0) K/mm3 RBC 4.32 (4.2-5.4) M/mm3 Hgb 13.1 (12.0-15.0) g/dL Hct 40.4 (37.0-47.0) % Plt Count 205 (150-375) k/mm3 Lymph # (Auto) 1.60 (0.9-3.2) K/mm3 [place] # (Auto) 1.2 H (0.1-0.6) K/mm3 Eos # (Auto) 0.0 (0-0.3) K/mm3 Baso # (Auto) 0.1 (0.0-0.1) K/mm3 Comprehensive Metabolic Panel 01/22/24 Range/Units 04:25 Sodium 132 L (137-145) mmol/L Potassium 3.3 L (3.4-5.0) mmol/L Chloride 102 (98-107) mmol/L Carbon Dioxide 28 (22-30) mmol/L BUN 12 (7-17) mg/dL Creatinine 0.60 L (0.7-1.0) mg/dL Glucose 116 H (65-110) mg/dL Calcium 7.8 L (8.4-10.2) mg/dL AST 25 (14-36) U/L ALT 11 (6-35) U/L Alkaline Phosphatase 99 (38-126) U/L Total Protein 6.0 L (6.3-8.2) g/dL Albumin 2.9 L (3.5-5.1) g/dL Intake and Output 01/21/24 01/22/24 01/22/24 23:59 07:59 15:59 Intake Total 850 1050 790 Output Total 900 Balance -50 1050 790 Intake: IV 50 50 ceFAZolin 1 GM/NS 50 ML 1 gm In 50 50 50 ml @ 100 mls/hr IVPB Q8H SUN Rx#:[id number] Oral 800 1000 790 Output: Urine 900 Other: # Unmeasured Voids 2 1 Number of Bowel Movements Today 1 Patient Weight 01/22/24 23:59 Weight 170 kg
[2024-01-22] MEDS: dilTIAZem 100 MG/100 ML 100 MG/100 ML BAG IV CONT (11:37)
--- NOTE | 2024-01-22 17:17 | P.PNIM_ITS ---
Progress Note: A&P Assessment and Plan (1) Cellulitis of left leg: Code(s): L03.116 - Cellulitis of left lower limb Status: Acute (2) Lymphedema of left lower extremity: Code(s): I89.0 - Lymphedema, not elsewhere classified Status: Acute (3) Atrial fibrillation with rapid ventricular response: Code(s): I48.91 - Unspecified atrial fibrillation Status: Acute (4) Acute dehydration: Code(s): E86.0 - Dehydration Status: Acute (5) Essential (primary) hypertension: Code(s): I10 - Essential (primary) hypertension Status: Acute (6) Chronic anticoagulation: Code(s): Z79.01 - [facility] (current) use of anticoagulants Status: Acute (7) Hypothyroidism: Qualifiers: Hypothyroidism type: unspecified Qualified Code(s): E03.9 - Hypoth yroidism, unspecified Code(s): E03.9 - Hypothyroidism, unspecified Status: Acute (8) Morbid obesity with BMI of 50.0-59.9, adult: Code(s): E66.01 - Morbid (severe) obesity due to excess calories; Z68.43 - Body mass index [BMI] 50.0-59.9, adult Status: Acute Plan Sepsis from Cellulitis Patient is still tachycardic; tachypnea and leukocytosis improving Patient has erythema on the left leg Blood culture pending Continue cefazolin Monitor. Atrial fibrillation with rapid ventricular response Most likely from sepsis Improved with IV fluid Continue home sotalol monitor. started on diltriazem 30mg q6 Continue rivaroxaban. cardiology consulted Hypokalemia Replace, monitor on presents accordingly. Magnesium is 2.0 Monitor History of CHF Unspecified Titrate her medications with clinical course Monitor Chronic lymphedema Physical therapy consulted for lymphedema wraps. DVT prophylaxis on rivaroxaban. Subjective Date/time seen: 01/22/24 17:17 Interval history: Comfortable at bedside Review of Systems Review of Systems: 12 systems were reviewed with pertinent positives and negatives per HPI. Except as documented in the HPI, all other systems were reviewed and are negative. Exam Narrative: Weight 168.3 kg BMI 58.1 Const: Other: Morbidly obese, no acute distress, appears stated age, well groomed HENMT: Other: Head is normocephalic atraumatic, mucous membranes are tacky, crowded posterior oropharynx, no oral pharyngeal erythema Eyes: Other: No scleral icterus, no conjunctival pallor, pupils are equal and reactive Neck: Other: Large neck circumference, supple, no JVD Resp: Other: Clear to auscultation bilaterally anterior brooks, no increased work of breathing Cardio: Other: Irregularly irregular, tachycardic, 2+ bilateral radial and pedal pulses, pulse in the left pedal is slightly stronger than the pulse in the right pedal GI: Other: Obese, nontender, positive bowel sounds Skin: Other: Marked erythema near circumferential of the left lower extremity including the toes top of the foot ankle and forefoot which are all hot to touch erythema extends up to just below the knee anteriorly and then extends further up the medial in the into the lower thigh the erythema at the knee and thigh is more violaceous in color, patient has skin changes consistent with chronic venous stasis dermatitis of the left anterior whiting/calf Neuro: Other: Alert oriented x4, speech is clear, no facial asymmetry, no localizing neurologic deficits noted during the course of conversation Extrem: Other: Patient is lymphedema chronic venous stasis changes of the left lower extremity left leg is more swollen than the right at baseline per patient but is increased edema since onset of current symptoms, she has severe tenderness to palpation of the ball of the foot, dorsum of the foot anterior and posterior calf and lateral left knee Psych: Other: Appropriate mood and affect, pleasant and cooperative, judgment and insight intact Objective Data Vital Signs Vital Signs: Vital Signs - 24 hr 01/21/24 17:27 01/21/24 20:08 01/21/24 20:00 Temperature 98.4 F Pulse Rate 110 H 117 H Respiratory Rate 20 Blood Pressure 143/68 H Pulse Oximetry 98 Oxygen Delivery Room Air 01/21/24 20:44 01/22/24 00:08 01/22/24 00:00 Temperature 97.9 F Pulse Rate 112 H 100 Respiratory Rate 20 Blood Pressure 137/74 Pulse Oximetry 98 Oxygen Delivery Room Air 01/21/24 20:00 01/21/24 22:00 01/22/24 00:00 Temperature Pulse Rate 118 H 108 H 118 H Respiratory Rate Blood Pressure Pulse Oximetry Oxygen Delivery 01/22/24 02:00 01/22/24 03:40 01/22/24 03:55 Temperature 98.2 F Pulse Rate 112 H 107 H Respiratory Rate 20 Blood Pressure 122/59 L Pulse Oximetry 98 Oxygen Delivery Room Air 01/22/24 04:00 01/22/24 05:58 01/22/24 07:38 Temperature 98.7 F Pulse Rate 119 H 110 H 112 H Respiratory Rate 16 Blood Pressure 123/78 Pulse Oximetry 97 Oxygen Delivery 01/22/24 08:48 01/22/24 10:30 01/22/24 11:37 Temperature Pulse Rate 119 H 118 H Respiratory Rate Blood Pressure Pulse Oximetry Oxygen Delivery Room Air 01/22/24 11:56 01/22/24 08:00 01/22/24 08:00 Temperature 98.9 F Pulse Rate 115 H 113 H 115 H Respiratory Rate 20 20 Blood Pressure 134/86 Pulse Oximetry 98 98 Oxygen Delivery Room Air 01/22/24 10:00 01/22/24 12:00 01/22/24 12:00 Temperature Pulse Rate 110 H 115 H 115 H Respiratory Rate 20 Blood Pressure Pulse Oximetry 98 Oxygen Delivery Room Air 01/22/24 13:51 01/22/24 13:37 01/22/24 15:46 Temperature Pulse Rate 114 H 104 H 85 Respiratory Rate 20 Blood Pressure 134/76 Pulse Oximetry 98 Oxygen Delivery 01/22/24 16:00 01/22/24 16:00 01/22/24 16:30 Temperature Pulse Rate 85 85 85 Respiratory Rate 20 Blood Pressure Pulse Oximetry 98 Oxygen Delivery Room Air Intake/Output Intake/Output: Intake & Output 01/19/24 01/20/24 01/21/24 01/22/24 23:59 23:59 23:59 23:59 Intake Total 1000 2860 0 Output Total 900 Balance 1000 1960 2049 Meds/Results Medications: Active Medications Generic Name Dose Route Start Last Admin Trade Name Freq PRN Reason Stop Dose Admin Acetaminophen 650 mg 01/21/24 01:41 01/21/24 18:00 Acetaminophen 325 Mg Tablet PO 650 mg Q4H PRN Administration Mild Pain (1-3) or Fever Hydrocodone Bitart/Acetaminophen 1 tab 01/21/24 20:17 01/22/24 08:42 Hydrocodone/Acetaminophen (*Crx) 5-325 Mg Tablet PO 1 tab Q4H PRN Administration Pain Rated 4-6 Calcium Carbonate 500 mg 01/21/24 09:00 01/22/24 08:50 Calcium Carbonate (Oscal) 500 Mg Tablet PO 500 mg QAM SUN Administration Cyanocobalamin 5,000 mcg 01/21/24 09:00 01/22/24 08:51 Cyanocobalamin 1,000 Mcg Tablet PO Not Given DAILY [facility] Ferrous Gluconate 324 mg 01/21/24 08:00 01/22/24 08:50 Ferrous Gluconate 324 Mg Tablet PO 324 mg DAILY@0800 SUN Administration Cefazolin Sodium 1 gm in 50 mls @ 100 mls/hr 01/21/24 08:00 01/22/24 08:50 Ancef 1 Gm/Ns 50 Ml IVPB 100 mls/hr Q8H SUN Administration Diltiazem HCl 100 mg in 100 mls @ 5 mls/hr 01/22/24 10:00 01/22/24 13:37 Cardizem 100 Mg/100 Ml IV CONT 5 mg/hr .Q20H SUN 5 mls/hr Infusion 5 MG/HR Levothyroxine Sodium 100 mcg 01/21/24 06:30 01/22/24 05:55 Levothyroxine Sodium 100 Mcg Tablet PO 100 mcg DAILY@0630 [facility] Administration Multivitamins/Minerals 2 tablet 01/21/24 09:00 01/22/24 08:48 Multivits W-Fe,Min Chewable Tablet PO 2 tablet DAILY [facility] Administration Rivaroxaban 20 mg 01/21/24 21:00 01/21/24 20:44 Rivaroxaban 20 Mg Tablet PO 20 mg HS SUN Administration Sotalol HCl 40 mg/ Sotalol HCl 120 mg 01/21/24 09:00 01/22/24 08:48 80 mg PO 120 mg Q12HR SUN Administration Thiamine HCl 200 mg/ Thiamine 250 mg 01/21/24 09:00 01/22/24 08:49 HCl 50 mg PO 250 mg DAILY SUN Administration Radiology Results: ITS Impressions Chest X-Ray 01/20/24 21:43 IMPRESSION: No acute cardiopulmonary pathology. Venous Doppler Study 01/22/24 10:48 IMPRESSION: 1. No deep venous thrombosis. 2. Moderate-sized Craven's cyst. Labs Labs: Laboratory Results - last 24 hr 01/22/24 04:25 WBC 11.8 H RBC 4.32 Hgb 13.1 Hct 40.4 MCV 93.5 MCH 30.3 MCHC 32.4 RDW 13.3 Plt Count 205 MPV 11.2 H Immature Gran % (Auto) 3.2 H Neut % (Auto) 72.6 Lymph % (Auto) 13.5 L [place] % (Auto) 9.7 H Eos % (Auto) 0.2 Baso % (Auto) 0.8 Lymph # (Auto) 1.60 [place] # (Auto) 1.2 H Eos # (Auto) 0.0 Baso # (Auto) 0.1 Abs Immat Gran (auto) 0.38 H Absolute Neuts (auto) 8.6 H Absolute Nucleated RBC 0.000 Nucleated RBC % 0.0 Sodium 132 L Potassium 3.3 L Chloride 102 Carbon Dioxide 28 Anion Gap 2 L BUN 12 Creatinine 0.60 L Estim Creat Clear Calc 139 Estimated GFR > 60 Glucose 116 H Calcium 7.8 L Magnesium 2.1 Total Bilirubin 0.7 AST 25 ALT 11 Alkaline Phosphatase 99 Total Protein 6.0 L Albumin 2.9 L Quality VTE Prophylaxis VTE prophylaxis: pharmacologic ordered (Continue home Xarelto)
[2024-01-22] MEDS: POTASSIUM CHLORIDE INJ 40 MEQ in SODIUM CHLORIDE 0.9% IV 500 ML 130 MEQ IVPB (18:29)
[2024-01-22] MEDS: RIVAROXABAN 20 MG TABLET PO (20:41)
[2024-01-22] MEDS: ACETAMINOPHEN 325 MG TABLET 650 MG PO (23:35)
[2024-01-23] VITALS (15 sets, daily range): BP systolic 105–139; BP diastolic 66–77; PULSE 97–119; RESP 16–20; TEMP 36.3–37.3; O2SAT 97–99
[2024-01-23 05:21] LABS: Basophils Absolute Auto 0.2 K/mm3 (0.0-0.1); Basophils Percent Auto 1.4 % (0.2-1.2); Eosinophils Percent Auto 0.3 % (0-4.4); Hematocrit 42.8 % (37.0-47.0); Hemoglobin 13.6 g/dL (12.0-15.0); Immature Granulocyte Percent A 5.5 % (0-0.5); Lymphocytes Absolute Auto 1.92 K/mm3 (0.9-3.2); Lymphocytes Percent Auto 13.2 % (18.3-44.2); Mean Corpuscular HGB Conc 31.8 g/dl (32-36); Mean Corpuscular Hemoglobin 30.3 pg (26-34); Mean Corpuscular Volume 95.3 fl (80-100); Mean Platelet Volume 10.8 fl (7.4-10.4); Monocytes Absolute Auto 1.2 K/mm3 (0.1-0.6); Monocytes Percent Auto 8.1 % (2.6-8.5); Neutrophils Absolute Auto 10.4 K/mm3 (1.3-6.7); Neutrophils Percent Auto 71.5 % (45.5-73.1); Platelet Count Result 291 k/mm3 (150-375); Red Blood Count 4.49 M/mm3 (4.2-5.4); Red Cell Distribution Width 13.6 % (11.5-14.5); White Blood Count 14.6 K/mm3 (4.5-10.0)
[2024-01-23] MEDS: LEVOTHYROXINE SODIUM 100 MCG TABLET PO (05:22)
[2024-01-23 05:32] LABS: Alanine Aminotransferase 9 U/L (6-35); Alkaline Phosphatase 128 U/L (38-126); Anion Gap 5 mmol/L (4-12); Aspartate Amino Transferase 26 U/L (14-36); Bilirubin,Total 0.8 mg/dL (0.2-1.3); Blood Urea Nitrogen 8 mg/dL (7-17); Calcium 8.1 mg/dL (8.4-10.2); Carbon Dioxide 30 mmol/L (22-30); Chloride 99 mmol/L (98-107); Estimated CRCL calculation 139 ml/min; Estimated Glomerular Filt Rate > 60; Glucose 116 mg/dL (65-110); Magnesium 2.1 mg/dL (1.6-2.3); Potassium 3.4 mmol/L (3.4-5.0); Sodium 134 mmol/L (137-145)
[2024-01-23 05:35] LABS: Lactic Acid Reflex 1.3 mmol/L (0.7-2.0)
[2024-01-23 08:10] LABS: Glucose Point of Care 114 mg/dl (65-105)
[2024-01-23] MEDS: FERROUS GLUCONATE 324 MG TABLET PO (09:19)
[2024-01-23] MEDS: THIAMINE HCL 250 MG PO (09:19)
[2024-01-23] MEDS: SOTALOL HCL 40 MG, SOTALOL HCL 80 MG 120 MG PO ×2 (09:19→21:18)
[2024-01-23] MEDS: ACETAMINOPHEN 325 MG TABLET 650 MG PO ×2 (09:19→21:19)
[2024-01-23] MEDS: CALCIUM CARBONATE (OSCAL) 500 MG TABLET PO (09:20)
[2024-01-23] MEDS: ceFAZolin 1 GM/NS 50 ML 1 GM/50 ML BAG IVPB (09:20)
[2024-01-23] MEDS: MULTIVITS W-FE,MIN CHEWABLE TABLET 2 TABLET PO (09:20)
--- NOTE | 2024-01-23 11:26 | PM.PNCARD ---
Progress Note: A&P Assessment and Plan (1) Atrial fibrillation with rapid ventricular response: Code(s): I48.91 - Unspecified atrial fibrillation Status: Acute Plan Left lower extremity cellulitis on top of lymphedema AFib with RVR likely triggered by sepsis Plan Continue oral anticoagulation Xarelto Continue sotalol on 5mg/he IV diltiazem - will shift to p.o. today. This can be up titrated as needed. It is expected the heart rate would be higher in the hospital secondary to underlying infection. Subjective Date/time seen: 01/23/24 11:26 Interval history: Cardiology follow up for atrial fibrillation Date of service 01/23/2024: She complains of feeling palpitations at times while at rest and while active. On telemetry HR generally controlled around 100 bpm. Review of Systems Review of Systems: All systems reviewed & are unremarkable except as noted in HPI and below Exam Const: General: comfortable and no acute distress Other: Able to lie flat HENMT: Face/Nose/Sinus: Normal nares present and no epistaxis Mouth: Yes moist mucous membranes Eyes: Sclera: sclerae normal Pupils: Equal, round and reactive pupils present Neck: Neck: supple and no JVD Carotids: no bruits Resp: Auscultation: clear to auscultation bilaterally and lung sounds not diminished Other: No chest wall tenderness Cardio: Rate: tachycardic Rhythm: abnormal rhythm irregularly irregular Heart sounds: no gallops, no murmurs and no rubs GI: Auscultation: normal bowel sounds Skin: General skin exam: normal color, rashes and/or lesions noted and erythema (Left lower extremity edema and erythema) Other: Warm Neuro: Cranial nerves: Yes Equal, round and reactive pupils present Speech: normal speech Other: No obvious focal deficit or facial asymmetry Extrem: General: no edema Other: Normal capillary refills Objective Data Vital Signs Vital Signs: Vital Signs - 24 hr 01/22/24 11:37 01/22/24 11:56 01/22/24 12:00 Temperature 37.2 C Pulse Rate 118 H 115 H 115 H Respiratory Rate 20 20 Blood Pressure 134/86 Pulse Oximetry 98 98 Oxygen Delivery Room Air 01/22/24 12:00 01/22/24 13:51 01/22/24 13:37 Temperature Pulse Rate 115 H 114 H 104 H Respiratory Rate Blood Pressure Pulse Oximetry Oxygen Delivery 01/22/24 15:46 01/22/24 16:00 01/22/24 16:00 Temperature Pulse Rate 85 85 85 Respiratory Rate 20 20 Blood Pressure 134/76 Pulse Oximetry 98 98 Oxygen Delivery Room Air 01/22/24 16:30 01/22/24 19:18 01/22/24 19:37 Temperature 37.1 C Pulse Rate 85 95 108 H Respiratory Rate 14 Blood Pressure 122/76 Pulse Oximetry 100 Oxygen Delivery 01/22/24 15:37 01/22/24 17:37 01/22/24 20:07 Temperature Pulse Rate 118 H 101 H 130 H Respiratory Rate Blood Pressure Pulse Oximetry Oxygen Delivery 01/22/24 20:41 01/22/24 20:00 01/22/24 20:00 Temperature Pulse Rate 112 H 112 H Respiratory Rate Blood Pressure 112/76 Pulse Oximetry Oxygen Delivery Room Air 01/22/24 20:00 01/22/24 22:00 01/22/24 22:00 Temperature Pulse Rate 116 H 104 H 104 H Respiratory Rate Blood Pressure 117/60 Pulse Oximetry Oxygen Delivery 01/22/24 22:00 01/22/24 23:23 01/23/24 00:00 Temperature Pulse Rate 104 H 108 H Respiratory Rate Blood Pressure 117/60 Pulse Oximetry Oxygen Delivery Room Air 01/23/24 00:00 01/23/24 00:00 01/23/24 02:00 Temperature 36.8 C Pulse Rate 103 H 104 H 98 Respiratory Rate 16 Blood Pressure 117/68 117/68 Pulse Oximetry 98 Oxygen Delivery 01/23/24 02:00 01/23/24 02:00 01/23/24 04:00 Temperature Pulse Rate 97 97 99 Respiratory Rate Blood Pressure 120/71 120/71 Pulse Oximetry Oxygen Delivery 01/23/24 04:00 01/23/24 04:00 01/23/24 04:00 Temperature 36.7 C Pulse Rate 97 97 Respiratory Rate 18 Blood Pressure 128/66 128/66 Pulse Oximetry 98 Oxygen Delivery Room Air 01/23/24 06:00 01/23/24 06:00 01/23/24 06:00 Temperature Pulse Rate 103 H 102 H 102 H Respiratory Rate Blood Pressure 123/72 123/72 Pulse Oximetry Oxygen Delivery 01/23/24 07:15 01/23/24 08:00 01/23/24 08:00 Temperature 36.7 C Pulse Rate 112 H 114 H Respiratory Rate 18 Blood Pressure 120/71 Pulse Oximetry 97 Oxygen Delivery Room Air 01/23/24 10:00 Temperature Pulse Rate 104 H Respiratory Rate Blood Pressure Pulse Oximetry Oxygen Delivery Intake/Output Intake/Output: Intake & Output 01/20/24 01/21/24 01/22/24 01/23/24 23:59 23:59 23:59 23:59 Intake Total 1000 2860 2831.9 730 Output Total 900 800 700 Balance 1000 1960 2031.9 30 Meds/Results Medications: Active Medications Generic Name Dose Route Start Last Admin Trade Name Freq PRN Reason Stop Dose Admin Acetaminophen 650 mg 01/21/24 01:41 01/23/24 09:19 Acetaminophen 325 Mg Tablet PO 650 mg Q4H PRN Administration Mild Pain (1-3) or Fever Hydrocodone Bitart/Acetaminophen 1 tab 01/21/24 20:17 01/22/24 20:45 Hydrocodone/Acetaminophen (*Crx) 5-325 Mg Tablet PO 1 tab Q4H PRN Administration Pain Rated 4-6 Calcium Carbonate 500 mg 01/21/24 09:00 01/23/24 09:20 Calcium Carbonate (Oscal) 500 Mg Tablet PO 500 mg QAM [facility] Administration Cyanocobalamin 5,000 mcg 01/21/24 09:00 01/23/24 09:21 Cyanocobalamin 1,000 Mcg Tablet PO Not Given DAILY [facility] Doxycycline Hyclate 100 mg 01/23/24 11:00 Doxycycline Hyclate 100 Mg Tablet PO 1100,2200 [facility] Ferrous Gluconate 324 mg 01/21/24 08:00 01/23/24 09:19 Ferrous Gluconate 324 Mg Tablet PO 324 mg DAILY@0800 [facility] Administration Diltiazem HCl 100 mg in 100 mls @ 5 mls/hr 01/22/24 10:00 01/23/24 06:00 Cardizem 100 Mg/100 Ml IV CONT 5 mg/hr .Q20H [facility] 5 mls/hr Infusion 5 MG/HR Cefazolin Sodium 2 gm in 50 mls @ 100 mls/hr 01/23/24 15:00 Ancef 2 Gm/D5w 50 Ml IVPB Q8HR [facility] Levothyroxine Sodium 100 mcg 01/21/24 06:30 01/23/24 05:22 Levothyroxine Sodium 100 Mcg Tablet PO 100 mcg DAILY@0630 [facility] Administration Multivitamins/Minerals 2 tablet 01/21/24 09:00 01/23/24 09:20 Multivits W-Fe,Min Chewable Tablet PO 2 tablet DAILY [facility] Administration Rivaroxaban 20 mg 01/21/24 21:00 01/22/24 20:41 Rivaroxaban 20 Mg Tablet PO 20 mg HS SUN Administration Sotalol HCl 40 mg/ Sotalol HCl 120 mg 01/21/24 09:00 01/23/24 09:19 80 mg PO 120 mg Q12HR SUN Administration Thiamine HCl 200 mg/ Thiamine 250 mg 01/21/24 09:00 01/23/24 09:19 HCl 50 mg PO 250 mg DAILY SUN Administration Radiology Results: ITS Impressions Chest X-Ray 01/20/24 21:43 IMPRESSION: No acute cardiopulmonary pathology. Venous Doppler Study 01/22/24 10:48 IMPRESSION: 1. No deep venous thrombosis. 2. Moderate-sized Craven's cyst. Labs Labs: Laboratory Results - last 24 hr 01/23/24 01/23/24 04:57 07:37 WBC 14.6 H RBC 4.49 Hgb 13.6 Hct 42.8 MCV 95.3 MCH 30.3 MCHC 31.8 L RDW 13.6 Plt Count 291 MPV 10.8 H Immature Gran % (Auto) 5.5 H Neut % (Auto) 71.5 Lymph % (Auto) 13.2 L [place] % (Auto) 8.1 Eos % (Auto) 0.3 Baso % (Auto) 1.4 H Lymph # (Auto) 1.92 [place] # (Auto) 1.2 H Eos # (Auto) 0.0 Baso # (Auto) 0.2 H Abs Immat Gran (auto) 0.80 H Absolute Neuts (auto) 10.4 H Absolute Nucleated RBC 0.000 Nucleated RBC % 0.0 Sodium 134 L Potassium 3.4 Chloride 99 Carbon Dioxide 30 Anion Gap 5 BUN 8 Creatinine 0.60 L Estim Creat Clear Calc 139 Estimated GFR > 60 Glucose 116 H POC Capillary Glucose 114 H Lactic Acid 1.3 Calcium 8.1 L Magnesium 2.1 Total Bilirubin 0.8 AST 26 ALT 9 Alkaline Phosphatase 128 H Total Protein 6.0 L Albumin 3.0 L Quality VTE Prophylaxis VTE prophylaxis: pharmacologic ordered (Continue home Xarelto)
[2024-01-23] MEDS: dilTIAZem 100 MG/100 ML 100 MG/100 ML BAG IV CONT (12:00)
[2024-01-23] MEDS: dilTIAZem HCL 30 MG TABLET PO ×2 (13:48→17:19)
[2024-01-23] MEDS: DOXYCYCLINE HYCLATE 100 MG TABLET PO ×2 (13:48→21:53)
--- NOTE | 2024-01-23 15:01 | P.PNIM_ITS ---
Progress Note: A&P Assessment and Plan (1) Cellulitis of left leg: Code(s): L03.116 - Cellulitis of left lower limb Status: Acute (2) Lymphedema of left lower extremity: Code(s): I89.0 - Lymphedema, not elsewhere classified Status: Acute (3) Atrial fibrillation with rapid ventricular response: Code(s): I48.91 - Unspecified atrial fibrillation Status: Acute (4) Acute dehydration: Code(s): E86.0 - Dehydration Status: Acute (5) Essential (primary) hypertension: Code(s): I10 - Essential (primary) hypertension Status: Acute (6) Chronic anticoagulation: Code(s): Z79.01 - group home (current) use of anticoagulants Status: Acute (7) Hypothyroidism: Qualifiers: Hypothyroidism type: unspecified Qualified Code(s): E03.9 - Hypoth yroidism, unspecified Code(s): E03.9 - Hypothyroidism, unspecified Status: Acute (8) Morbid obesity with BMI of 50.0-59.9, adult: Code(s): E66.01 - Morbid (severe) obesity due to excess calories; Z68.43 - Body mass index [BMI] 50.0-59.9, adult Status: Acute Plan Sepsis from Cellulitis Patient is still tachycardic; tachypnea and leukocytosis improving Patient has erythema on the left leg Blood culture pending Continue cefazolin Monitor. Atrial fibrillation with rapid ventricular response Most likely from sepsis Improved with IV fluid Continue home sotalol monitor. titrate diltriazem 30mg q6 Continue rivaroxaban. cardiology following Hypokalemia Replace, monitor on presents accordingly. Magnesium is 2.0 Monitor History of CHF Unspecified Titrate her medications with clinical course Monitor Chronic lymphedema Physical therapy consulted for lymphedema wraps. DVT prophylaxis on rivaroxaban. Subjective Date/time seen: 01/23/24 15:01 Interval history: patient comfortable at bedside Hr still elevated and Diltiazem 30mg q6 monitor Review of Systems Review of Systems: 12 systems were reviewed with pertinent positives and negatives per HPI. Except as documented in the HPI, all other systems were reviewed and are negative. Exam Narrative: Weight 168.3 kg BMI 58.1 Const: Other: Morbidly obese, no acute distress, appears stated age, well groomed HENMT: Other: Head is normocephalic atraumatic, mucous membranes are tacky, crowded posterior oropharynx, no oral pharyngeal erythema Eyes: Other: No scleral icterus, no conjunctival pallor, pupils are equal and reactive Neck: Other: Large neck circumference, supple, no JVD Resp: Other: Clear to auscultation bilaterally anterior brooks, no increased work of breathing Cardio: Other: Irregularly irregular, tachycardic, 2+ bilateral radial and pedal pulses, pulse in the left pedal is slightly stronger than the pulse in the right pedal GI: Other: Obese, nontender, positive bowel sounds Skin: Other: Marked erythema near circumferential of the left lower extremity including the toes top of the foot ankle and forefoot which are all hot to touch erythema extends up to just below the knee anteriorly and then extends further up the medial in the into the lower thigh the erythema at the knee and thigh is more violaceous in color, patient has skin changes consistent with chronic venous stasis dermatitis of the left anterior whiting/calf Neuro: Other: Alert oriented x4, speech is clear, no facial asymmetry, no localizing neurologic deficits noted during the course of conversation Extrem: Other: Patient is lymphedema chronic venous stasis changes of the left lower extremity left leg is more swollen than the right at baseline per patient but is increased edema since onset of current symptoms, she has severe tenderness to palpation of the ball of the foot, dorsum of the foot anterior and posterior calf and lateral left knee Psych: Other: Appropriate mood and affect, pleasant and cooperative, judgment and insight intact Objective Data Vital Signs Vital Signs: Vital Signs - 24 hr 01/22/24 15:46 01/22/24 16:00 01/22/24 16:00 Temperature Pulse Rate 85 85 85 Respiratory Rate 20 20 Blood Pressure 134/76 Pulse Oximetry 98 98 Oxygen Delivery Room Air 01/22/24 16:30 01/22/24 19:18 01/22/24 19:37 Temperature 98.8 F Pulse Rate 85 95 108 H Respiratory Rate 14 Blood Pressure 122/76 Pulse Oximetry 100 Oxygen Delivery 01/22/24 15:37 01/22/24 17:37 01/22/24 20:07 Temperature Pulse Rate 118 H 101 H 130 H Respiratory Rate Blood Pressure Pulse Oximetry Oxygen Delivery 01/22/24 20:41 01/22/24 20:00 01/22/24 20:00 Temperature Pulse Rate 112 H 112 H Respiratory Rate Blood Pressure 112/76 Pulse Oximetry Oxygen Delivery Room Air 01/22/24 20:00 01/22/24 22:00 01/22/24 22:00 Temperature Pulse Rate 116 H 104 H 104 H Respiratory Rate Blood Pressure 117/60 Pulse Oximetry Oxygen Delivery 01/22/24 22:00 01/22/24 23:23 01/23/24 00:00 Temperature Pulse Rate 104 H 108 H Respiratory Rate Blood Pressure 117/60 Pulse Oximetry Oxygen Delivery Room Air 01/23/24 00:00 01/23/24 00:00 01/23/24 02:00 Temperature 98.3 F Pulse Rate 103 H 104 H 98 Respiratory Rate 16 Blood Pressure 117/68 117/68 Pulse Oximetry 98 Oxygen Delivery 01/23/24 02:00 01/23/24 02:00 01/23/24 04:00 Temperature Pulse Rate 97 97 99 Respiratory Rate Blood Pressure 120/71 120/71 Pulse Oximetry Oxygen Delivery 01/23/24 04:00 01/23/24 04:00 01/23/24 04:00 Temperature 98.0 F Pulse Rate 97 97 Respiratory Rate 18 Blood Pressure 128/66 128/66 Pulse Oximetry 98 Oxygen Delivery Room Air 01/23/24 06:00 01/23/24 06:00 01/23/24 06:00 Temperature Pulse Rate 103 H 102 H 102 H Respiratory Rate Blood Pressure 123/72 123/72 Pulse Oximetry Oxygen Delivery 01/23/24 07:15 01/23/24 08:00 01/23/24 08:00 Temperature 98.1 F Pulse Rate 112 H 114 H Respiratory Rate 18 Blood Pressure 120/71 Pulse Oximetry 97 Oxygen Delivery Room Air 01/23/24 10:00 01/23/24 12:00 01/23/24 10:00 Temperature 97.3 F L 97.6 F Pulse Rate 104 H 106 H 100 Respiratory Rate 20 18 Blood Pressure 105/73 110/70 Pulse Oximetry 97 98 Oxygen Delivery 01/23/24 12:00 01/23/24 08:00 01/23/24 10:00 Temperature Pulse Rate 100 102 H Respiratory Rate Blood Pressure 110/70 108/77 Pulse Oximetry Oxygen Delivery Room Air 01/23/24 12:00 01/23/24 12:00 Temperature Pulse Rate 106 H 108 H Respiratory Rate Blood Pressure 105/73 Pulse Oximetry Oxygen Delivery Intake/Output Intake/Output: Intake & Output 01/20/24 01/21/24 01/22/24 01/23/24 23:59 23:59 23:59 23:59 Intake Total 1000 2860 2831.9 978.1 Output Total 900 800 700 Balance 1000 1960 2031.9 278.1 Meds/Results Medications: Active Medications Generic Name Dose Route Start Last Admin Trade Name Freq PRN Reason Stop Dose Admin Acetaminophen 650 mg 01/21/24 01:41 01/23/24 09:19 Acetaminophen 325 Mg Tablet PO 650 mg Q4H PRN Administration Mild Pain (1-3) or Fever Hydrocodone Bitart/Acetaminophen 1 tab 01/21/24 20:17 01/22/24 20:45 Hydrocodone/Acetaminophen (*Crx) 5-325 Mg Tablet PO 1 tab Q4H PRN Administration Pain Rated 4-6 Calcium Carbonate 500 mg 01/21/24 09:00 01/23/24 09:20 Calcium Carbonate (Oscal) 500 Mg Tablet PO 500 mg QAM [facility] Administration Cyanocobalamin 5,000 mcg 01/21/24 09:00 01/23/24 09:21 Cyanocobalamin 1,000 Mcg Tablet PO Not Given DAILY [facility] Diltiazem HCl 30 mg 01/23/24 13:22 01/23/24 13:48 Diltiazem Hcl 30 Mg Tablet PO 30 mg Q6HR [facility] Administration Doxycycline Hyclate 100 mg 01/23/24 11:00 01/23/24 13:48 Doxycycline Hyclate 100 Mg Tablet PO 100 mg 1100,2200 [facility] Administration Ferrous Gluconate 324 mg 01/21/24 08:00 01/23/24 09:19 Ferrous Gluconate 324 Mg Tablet PO 324 mg DAILY@0800 [facility] Administration Cefazolin Sodium 2 gm in 50 mls @ 100 mls/hr 01/23/24 15:00 Ancef 2 Gm/D5w 50 Ml IVPB Q8HR [facility] Levothyroxine Sodium 100 mcg 01/21/24 06:30 01/23/24 05:22 Levothyroxine Sodium 100 Mcg Tablet PO 100 mcg DAILY@0630 [facility] Administration Multivitamins/Minerals 2 tablet 01/21/24 09:00 01/23/24 09:20 Multivits W-Fe,Min Chewable Tablet PO 2 tablet DAILY [facility] Administration Rivaroxaban 20 mg 01/21/24 21:00 01/22/24 20:41 Rivaroxaban 20 Mg Tablet PO 20 mg HS [facility] Administration Sotalol HCl 40 mg/ Sotalol HCl 120 mg 01/21/24 09:00 01/23/24 09:19 80 mg PO 120 mg Q12HR [facility] Administration Thiamine HCl 200 mg/ Thiamine 250 mg 01/21/24 09:00 01/23/24 09:19 HCl 50 mg PO 250 mg DAILY [facility] Administration Radiology Results: ITS Impressions Chest X-Ray 01/20/24 21:43 IMPRESSION: No acute cardiopulmonary pathology. Venous Doppler Study 01/22/24 10:48 IMPRESSION: 1. No deep venous thrombosis. 2. Moderate-sized Craven's cyst. Labs Labs: Laboratory Results - last 24 hr 01/23/24 01/23/24 04:57 07:37 WBC 14.6 H RBC 4.49 Hgb 13.6 Hct 42.8 MCV 95.3 MCH 30.3 MCHC 31.8 L RDW 13.6 Plt Count 291 MPV 10.8 H Immature Gran % (Auto) 5.5 H Neut % (Auto) 71.5 Lymph % (Auto) 13.2 L [place] % (Auto) 8.1 Eos % (Auto) 0.3 Baso % (Auto) 1.4 H Lymph # (Auto) 1.92 [place] # (Auto) 1.2 H Eos # (Auto) 0.0 Baso # (Auto) 0.2 H Abs Immat Gran (auto) 0.80 H Absolute Neuts (auto) 10.4 H Absolute Nucleated RBC 0.000 Nucleated RBC % 0.0 Sodium 134 L Potassium 3.4 Chloride 99 Carbon Dioxide 30 Anion Gap 5 BUN 8 Creatinine 0.60 L Estim Creat Clear Calc 139 Estimated GFR > 60 Glucose 116 H POC Capillary Glucose 114 H Lactic Acid 1.3 Calcium 8.1 L Magnesium 2.1 Total Bilirubin 0.8 AST 26 ALT 9 Alkaline Phosphatase 128 H Total Protein 6.0 L Albumin 3.0 L Quality VTE Prophylaxis VTE prophylaxis: pharmacologic ordered (Continue home Xarelto)
[2024-01-23] MEDS: ceFAZolin 2 GM/D5W 50 ML 2 GM/50 ML BAG IVPB ×2 (15:34→21:20)
[2024-01-23] MEDS: POTASSIUM CHLORIDE 20 MEQ ER TABLET 40 MEQ PO (16:19)
--- NOTE | 2024-01-23 19:18 | PC.NURSE ---
This patient, Leora Mcghee, was transferred to [facility] on 01/23/24 at 1918. Personal belongings sent with patient. Report given to P[facility]. Appropriate documentation sent with patient.
[2024-01-23] MEDS: RIVAROXABAN 20 MG TABLET PO (21:18)
[2024-01-23] MEDS: HYDROcodone/acetaminophen (*CRX) 5-325 MG TABLET 1 TAB PO (21:53)
[2024-01-24] VITALS (15 sets, daily range): BP systolic 107–130; BP diastolic 58–86; PULSE 87–116; RESP 13–20; TEMP 36.3–36.8; O2SAT 96–99
[2024-01-24] MEDS: dilTIAZem HCL 30 MG TABLET PO ×2 (00:32→05:59)
[2024-01-24 05:04] LABS: Basophils Percent Auto 0.3 % (0.2-1.2); Eosinophils Percent Auto 0.2 % (0-4.4); Hematocrit 40.3 % (37.0-47.0); Immature Granulocyte Absolute 1.04 K/mm3 (0.00-0.031); Immature Granulocyte Percent A 7.3 % (0-0.5); Lymphocytes Absolute Auto 2.02 K/mm3 (0.9-3.2); Lymphocytes Percent Auto 14.2 % (18.3-44.2); Mean Corpuscular HGB Conc 32.3 g/dl (32-36); Mean Corpuscular Hemoglobin 30.4 pg (26-34); Mean Corpuscular Volume 94.2 fl (80-100); Mean Platelet Volume 10.3 fl (7.4-10.4); Monocytes Absolute Auto 1.1 K/mm3 (0.1-0.6); Monocytes Percent Auto 7.6 % (2.6-8.5); Neutrophils Percent Auto 70.4 % (45.5-73.1); Platelet Count Result 352 k/mm3 (150-375); Red Blood Count 4.28 M/mm3 (4.2-5.4); Red Cell Distribution Width 13.5 % (11.5-14.5); White Blood Count 14.2 K/mm3 (4.5-10.0)
[2024-01-24 05:23] LABS: Alanine Aminotransferase 8 U/L (6-35); Albumin Level 2.9 g/dL (3.5-5.1); Alkaline Phosphatase 148 U/L (38-126); Anion Gap 4 mmol/L (4-12); Aspartate Amino Transferase 30 U/L (14-36); Bilirubin,Total 0.9 mg/dL (0.2-1.3); Blood Urea Nitrogen 7 mg/dL (7-17); Calcium 8.1 mg/dL (8.4-10.2); Carbon Dioxide 29 mmol/L (22-30); Chloride 100 mmol/L (98-107); Estimated CRCL calculation 163 ml/min; Estimated Glomerular Filt Rate > 60; Glucose 111 mg/dL (65-110); Magnesium 2.2 mg/dL (1.6-2.3); Potassium 3.5 mmol/L (3.4-5.0); Sodium 133 mmol/L (137-145)
[2024-01-24] MEDS: ceFAZolin 2 GM/D5W 50 ML 2 GM/50 ML BAG IVPB ×3 (05:59→21:18)
[2024-01-24] MEDS: LEVOTHYROXINE SODIUM 100 MCG TABLET PO (05:59)
[2024-01-24] MEDS: THIAMINE HCL 250 MG PO (08:45)
[2024-01-24] MEDS: CALCIUM CARBONATE (OSCAL) 500 MG TABLET PO (08:45)
[2024-01-24] MEDS: SOTALOL HCL 40 MG, SOTALOL HCL 80 MG 120 MG PO ×2 (08:45→21:05)
[2024-01-24] MEDS: MULTIVITS W-FE,MIN CHEWABLE TABLET 2 TABLET PO (08:46)
[2024-01-24] MEDS: FERROUS GLUCONATE 324 MG TABLET PO (08:46)
--- NOTE | 2024-01-24 10:43 | P.PNCA_ITS ---
Progress Note: A&P Assessment and Plan (1) Atrial fibrillation with rapid ventricular response: Code(s): I48.91 - Unspecified atrial fibrillation Status: Acute Plan Left lower extremity cellulitis on top of lymphedema AFib with RVR likely triggered by sepsis Plan Continue oral anticoagulation Xarelto Continue sotalol Increase diltiazem to 60mg q6h today. She can be downgraded from IMU to med/tele It is expected the heart rate would be higher in the hospital secondary to underlying infection. Subjective Date/time seen: 01/24/24 10:43 Interval history: Cardiology follow up for atrial fibrillation Date of service 01/23/2024: She complains of feeling palpitations at times while at rest and while active. On telemetry HR generally controlled around 100 bpm. Date of service 01/24/2024: Having periodic tachycardia with rates in the 120's. Continues to feel palpitations but otherwise has no complaints. Review of Systems Review of Systems: All systems reviewed & are unremarkable except as noted in HPI and below Exam Const: General: comfortable and no acute distress Other: Able to lie flat HENMT: Face/Nose/Sinus: Normal nares present and no epistaxis Mouth: Yes moist mucous membranes Eyes: Sclera: sclerae normal Pupils: Equal, round and reactive pupils present Neck: Neck: supple and no JVD Carotids: no bruits Resp: Auscultation: clear to auscultation bilaterally and lung sounds not diminished Other: No chest wall tenderness Cardio: Rate: tachycardic Rhythm: abnormal rhythm irregularly irregular Heart sounds: no gallops, no murmurs and no rubs GI: Auscultation: normal bowel sounds Skin: General skin exam: normal color, rashes and/or lesions noted and erythema (Left lower extremity edema and erythema) Other: Warm Neuro: Cranial nerves: Yes Equal, round and reactive pupils present Speech: normal speech Other: No obvious focal deficit or facial asymmetry Extrem: General: no edema Other: Normal capillary refills Objective Data Vital Signs Vital Signs: Vital Signs - 24 hr 01/23/24 12:00 01/23/24 12:00 01/23/24 12:00 Temperature 36.3 C L Pulse Rate 106 H 106 H Respiratory Rate 20 Blood Pressure 105/73 105/73 Pulse Oximetry 97 Oxygen Delivery Room Air 01/23/24 12:00 01/23/24 14:00 01/23/24 16:00 Temperature Pulse Rate 108 H 98 103 H Respiratory Rate Blood Pressure Pulse Oximetry Oxygen Delivery 01/23/24 18:00 01/23/24 16:00 01/23/24 16:00 Temperature 36.6 C Pulse Rate 108 H 111 H Respiratory Rate 20 Blood Pressure 139/76 Pulse Oximetry 98 Oxygen Delivery Room Air 01/23/24 20:26 01/23/24 21:18 01/23/24 20:00 Temperature 37.3 C Pulse Rate 119 H 116 H 117 H Respiratory Rate 20 Blood Pressure 137/75 Pulse Oximetry 99 Oxygen Delivery 01/23/24 22:00 01/23/24 20:00 01/24/24 00:00 Temperature Pulse Rate 112 H Respiratory Rate Blood Pressure Pulse Oximetry Oxygen Delivery Room Air Room Air 01/24/24 00:00 01/24/24 00:00 01/24/24 02:00 Temperature 36.8 C Pulse Rate 102 H 99 104 H Respiratory Rate 20 Blood Pressure 107/80 Pulse Oximetry 96 Oxygen Delivery 01/24/24 03:35 01/24/24 04:00 01/24/24 04:00 Temperature 36.4 C Pulse Rate 116 H 116 H Respiratory Rate 18 Blood Pressure 117/66 Pulse Oximetry 99 Oxygen Delivery Room Air 01/24/24 06:00 01/24/24 07:53 01/24/24 08:45 Temperature 36.8 C Pulse Rate 99 115 H 109 H Respiratory Rate 16 Blood Pressure 120/58 L Pulse Oximetry 97 Oxygen Delivery 01/24/24 08:00 01/24/24 08:00 01/24/24 10:00 Temperature Pulse Rate 109 H 111 H 103 H Respiratory Rate 16 Blood Pressure Pulse Oximetry 97 Oxygen Delivery Room Air Intake/Output Intake/Output: Intake & Output 01/21/24 01/22/24 01/23/24 01/24/24 23:59 23:59 23:59 23:59 Intake Total 2860 2831.9 1918.1 1090 Output Total 435 189 5411 1000 Balance 1960 2031.9 493.1 90 Meds/Results Medications: Active Medications Generic Name Dose Route Start Last Admin Trade Name Freq PRN Reason Stop Dose Admin Acetaminophen 650 mg 01/21/24 01:41 01/23/24 21:19 Acetaminophen 325 Mg Tablet PO 650 mg Q4H PRN Administration Mild Pain (1-3) or Fever Hydrocodone Bitart/Acetaminophen 1 tab 01/21/24 20:17 01/23/24 21:53 Hydrocodone/Acetaminophen (*Crx) 5-325 Mg Tablet PO 1 tab Q4H PRN Administration Pain Rated 4-6 Calcium Carbonate 500 mg 01/21/24 09:00 01/24/24 08:45 Calcium Carbonate (Oscal) 500 Mg Tablet PO 500 mg QAM [facility] Administration Cyanocobalamin 5,000 mcg 01/21/24 09:00 01/24/24 08:48 Cyanocobalamin 1,000 Mcg Tablet PO Not Given DAILY [facility] Diltiazem HCl 60 mg 01/24/24 12:00 Diltiazem Hcl 60 Mg Tablet PO Q6HR [facility] Doxycycline Hyclate 100 mg 01/23/24 11:00 01/23/24 21:53 Doxycycline Hyclate 100 Mg Tablet PO 100 mg 1100,2200 [facility] Administration Ferrous Gluconate 324 mg 01/21/24 08:00 01/24/24 08:46 Ferrous Gluconate 324 Mg Tablet PO 324 mg DAILY@0800 [facility] Administration Cefazolin Sodium 2 gm in 50 mls @ 100 mls/hr 01/23/24 15:00 01/24/24 06:29 Ancef 2 Gm/D5w 50 Ml IVPB Infused Q8HR [facility] Infusion Levothyroxine Sodium 100 mcg 01/21/24 06:30 01/24/24 05:59 Levothyroxine Sodium 100 Mcg Tablet PO 100 mcg DAILY@0630 [facility] Administration Multivitamins/Minerals 2 tablet 01/21/24 09:00 01/24/24 08:46 Multivits W-Fe,Min Chewable Tablet PO 2 tablet DAILY [facility] Administration Rivaroxaban 20 mg 01/21/24 21:00 01/23/24 21:18 Rivaroxaban 20 Mg Tablet PO 20 mg HS [facility] Administration Sotalol HCl 40 mg/ Sotalol HCl 120 mg 01/21/24 09:00 01/24/24 08:45 80 mg PO 120 mg Q12HR [facility] Administration Thiamine HCl 200 mg/ Thiamine 250 mg 01/21/24 09:00 01/24/24 08:45 HCl 50 mg PO 250 mg DAILY [facility] Administration Radiology Results: ITS Impressions Chest X-Ray 01/20/24 21:43 IMPRESSION: No acute cardiopulmonary pathology. Venous Doppler Study 01/22/24 10:48 IMPRESSION: 1. No deep venous thrombosis. 2. Moderate-sized Craven's cyst. Labs Labs: Laboratory Results - last 24 hr 01/24/24 04:43 WBC 14.2 H RBC 4.28 Hgb 13.0 Hct 40.3 MCV 94.2 MCH 30.4 MCHC 32.3 RDW 13.5 Plt Count 352 MPV 10.3 Immature Gran % (Auto) 7.3 H Neut % (Auto) 70.4 Lymph % (Auto) 14.2 L [place] % (Auto) 7.6 Eos % (Auto) 0.2 Baso % (Auto) 0.3 Lymph # (Auto) 2.02 [place] # (Auto) 1.1 H Eos # (Auto) 0.0 Baso # (Auto) 0.0 Abs Immat Gran (auto) 1.04 H Absolute Neuts (auto) 10.0 H Absolute Nucleated RBC 0.000 Nucleated RBC % 0.0 Sodium 133 L Potassium 3.5 Chloride 100 Carbon Dioxide 29 Anion Gap 4 BUN 7 Creatinine 0.50 L Estim Creat Clear Calc 163 Estimated GFR > 60 Glucose 111 H Calcium 8.1 L Magnesium 2.2 Total Bilirubin 0.9 AST 30 ALT 8 Alkaline Phosphatase 148 H Total Protein 6.0 L Albumin 2.9 L Quality VTE Prophylaxis VTE prophylaxis: pharmacologic ordered (Continue home Xarelto)
[2024-01-24] MEDS: DOXYCYCLINE HYCLATE 100 MG TABLET PO ×2 (12:13→21:25)
[2024-01-24] MEDS: dilTIAZem HCL 60 MG TABLET PO ×2 (12:13→18:22)
--- NOTE | 2024-01-24 17:11 | PM.IMPN ---
Progress Note: A&P Assessment and Plan (1) Cellulitis of left leg: Code(s): L03.116 - Cellulitis of left lower limb Status: Acute (2) Lymphedema of left lower extremity: Code(s): I89.0 - Lymphedema, not elsewhere classified Status: Acute (3) Atrial fibrillation with rapid ventricular response: Code(s): I48.91 - Unspecified atrial fibrillation Status: Acute (4) Acute dehydration: Code(s): E86.0 - Dehydration Status: Acute (5) Essential (primary) hypertension: Code(s): I10 - Essential (primary) hypertension Status: Acute (6) Chronic anticoagulation: Code(s): Z79.01 - halfway (current) use of anticoagulants Status: Acute (7) Hypothyroidism: Qualifiers: Hypothyroidism type: unspecified Qualified Code(s): E03.9 - Hypothyroidism, unspecified Code(s): E03.9 - Hypothyroidism, unspecified Status: Acute (8) Morbid obesity with BMI of 50.0-59.9, adult: Code(s): E66.01 - Morbid (severe) obesity due to excess calories; Z68.43 - Body mass index [BMI] 50.0-59.9, adult Status: Acute Plan Sepsis from Cellulitis Patient is still tachycardic; tachypnea and leukocytosis improving Patient has erythema on the left leg Blood culture pending Continue cefazolin Monitor. Atrial fibrillation with rapid ventricular response Most likely from sepsis Improved with IV fluid Continue home sotalol monitor. Increase diltiazem to 60 mg q.6 hours Continue rivaroxaban. cardiology following Hypokalemia Replace, monitor on presents accordingly. Magnesium is 2.0 Monitor History of CHF Unspecified Titrate her medications with clinical course Monitor Chronic lymphedema Physical therapy consulted for lymphedema wraps. DVT prophylaxis on rivaroxaban. Subjective Date/time seen: 01/24/24 17:11 Interval history: Cellulitis improving continue cefazolin and doxycycline for 5 days. Review of Systems Review of Systems: 12 systems were reviewed with pertinent positives and negatives per HPI. Except as documented in the HPI, all other systems were reviewed and are negative. Exam Narrative: Weight 168.3 kg BMI 58.1 Const: Other: Morbidly obese, no acute distress, appears stated age, well groomed HENMT: Other: Head is normocephalic atraumatic, mucous membranes are tacky, crowded posterior oropharynx, no oral pharyngeal erythema Eyes: Other: No scleral icterus, no conjunctival pallor, pupils are equal and reactive Neck: Other: Large neck circumference, supple, no JVD Resp: Other: Clear to auscultation bilaterally anterior brooks, no increased work of breathing Cardio: Other: Irregularly irregular, tachycardic, 2+ bilateral radial and pedal pulses, pulse in the left pedal is slightly stronger than the pulse in the right pedal GI: Other: Obese, nontender, positive bowel sounds Skin: Other: Marked erythema near circumferential of the left lower extremity including the toes top of the foot ankle and forefoot which are all hot to touch erythema extends up to just below the knee anteriorly and then extends further up the medial in the into the lower thigh the erythema at the knee and thigh is more violaceous in color, patient has skin changes consistent with chronic venous stasis dermatitis of the left anterior whiting/calf Neuro: Other: Alert oriented x4, speech is clear, no facial asymmetry, no localizing neurologic deficits noted during the course of conversation Extrem: Other: Patient is lymphedema chronic venous stasis changes of the left lower extremity left leg is more swollen than the right at baseline per patient but is increased edema since onset of current symptoms, she has severe tenderness to palpation of the ball of the foot, dorsum of the foot anterior and posterior calf and lateral left knee Psych: Other: Appropriate mood and affect, pleasant and cooperative, judgment and insight intact Objective Data Vital Signs Vital Signs: Vital Signs - 24 hr 01/23/24 18:00 01/23/24 20:26 01/23/24 21:18 Temperature 99.2 F Pulse Rate 108 H 119 H 116 H Respiratory Rate 20 Blood Pressure 137/75 Pulse Oximetry 99 Oxygen Delivery 01/23/24 20:00 01/23/24 22:00 01/23/24 20:00 Temperature Pulse Rate 117 H 112 H Respiratory Rate Blood Pressure Pulse Oximetry Oxygen Delivery Room Air 01/24/24 00:00 01/24/24 00:00 01/24/24 00:00 Temperature 98.3 F Pulse Rate 102 H 99 Respiratory Rate 20 Blood Pressure 107/80 Pulse Oximetry 96 Oxygen Delivery Room Air 01/24/24 02:00 01/24/24 03:35 01/24/24 04:00 Temperature Pulse Rate 104 H 116 H Respiratory Rate Blood Pressure Pulse Oximetry Oxygen Delivery Room Air 01/24/24 04:00 01/24/24 06:00 01/24/24 07:53 Temperature 97.6 F 98.2 F Pulse Rate 116 H 99 115 H Respiratory Rate 18 16 Blood Pressure 117/66 120/58 L Pulse Oximetry 99 97 Oxygen Delivery 01/24/24 08:45 01/24/24 08:00 01/24/24 08:00 Temperature Pulse Rate 109 H 109 H 111 H Respiratory Rate 16 Blood Pressure Pulse Oximetry 97 Oxygen Delivery Room Air 01/24/24 10:00 01/24/24 12:00 01/24/24 12:00 Temperature 97.5 F L Pulse Rate 103 H 107 H 107 H Respiratory Rate 20 20 Blood Pressure 129/80 Pulse Oximetry 96 96 Oxygen Delivery Room Air 01/24/24 15:49 01/24/24 16:00 01/24/24 16:00 Temperature 98.1 F Pulse Rate 101 H 101 H 107 H Respiratory Rate 16 16 Blood Pressure 118/74 Pulse Oximetry 97 97 Oxygen Delivery Room Air Intake/Output Intake/Output: Intake & Output 01/21/24 01/22/24 01/23/24 01/24/24 23:59 23:59 23:59 23:59 Intake Total 2860 2831.9 1918.1 1330 Output Total 435 433 1716 1000 Balance 1960 2031.9 493.1 330 Meds/Results Medications: Active Medications Generic Name Dose Route Start Last Admin Trade Name Freq PRN Reason Stop Dose Admin Acetaminophen 650 mg 01/21/24 01:41 01/23/24 21:19 Acetaminophen 325 Mg Tablet PO 650 mg Q4H PRN Administration Mild Pain (1-3) or Fever Hydrocodone Bitart/Acetaminophen 1 tab 01/21/24 20:17 01/23/24 21:53 Hydrocodone/Acetaminophen (*Crx) 5-325 Mg Tablet PO 1 tab Q4H PRN Administration Pain Rated 4-6 Calcium Carbonate 500 mg 01/21/24 09:00 01/24/24 08:45 Calcium Carbonate (Oscal) 500 Mg Tablet PO 500 mg QAM SUN Administration Cyanocobalamin 5,000 mcg 01/21/24 09:00 01/24/24 08:48 Cyanocobalamin 1,000 Mcg Tablet PO Not Given DAILY SUN Diltiazem HCl 60 mg 01/24/24 12:00 01/24/24 12:13 Diltiazem Hcl 60 Mg Tablet PO 60 mg Q6HR SUN Administration Doxycycline Hyclate 100 mg 01/23/24 11:00 01/24/24 12:13 Doxycycline Hyclate 100 Mg Tablet PO 100 mg 1100,2200 SUN Administration Ferrous Gluconate 324 mg 01/21/24 08:00 01/24/24 08:46 Ferrous Gluconate 324 Mg Tablet PO 324 mg DAILY@0800 SUN Administration Cefazolin Sodium 2 gm in 50 mls @ 100 mls/hr 01/23/24 15:00 01/24/24 15:07 Ancef 2 Gm/D5w 50 Ml IVPB 100 mls/hr Q8HR SUN Administration Levothyroxine Sodium 100 mcg 01/21/24 06:30 01/24/24 05:59 Levothyroxine Sodium 100 Mcg Tablet PO 100 mcg DAILY@0630 SUN Administration Multivitamins/Minerals 2 tablet 01/21/24 09:00 01/24/24 08:46 Multivits W-Fe,Min Chewable Tablet PO 2 tablet DAILY SUN Administration Rivaroxaban 20 mg 01/21/24 21:00 01/23/24 21:18 Rivaroxaban 20 Mg Tablet PO 20 mg HS SUN Administration Sotalol HCl 40 mg/ Sotalol HCl 120 mg 01/21/24 09:00 01/24/24 08:45 80 mg PO 120 mg Q12HR SUN Administration Thiamine HCl 200 mg/ Thiamine 250 mg 01/21/24 09:00 01/24/24 08:45 HCl 50 mg PO 250 mg DAILY SUN Administration Radiology Results: ITS Impressions Chest X-Ray 01/20/24 21:43 IMPRESSION: No acute cardiopulmonary pathology. Venous Doppler Study 01/22/24 10:48 IMPRESSION: 1. No deep venous thrombosis. 2. Moderate-sized Craven's cyst. Labs Labs: Laboratory Results - last 24 hr 01/24/24 04:43 WBC 14.2 H RBC 4.28 Hgb 13.0 Hct 40.3 MCV 94.2 MCH 30.4 MCHC 32.3 RDW 13.5 Plt Count 352 MPV 10.3 Immature Gran % (Auto) 7.3 H Neut % (Auto) 70.4 Lymph % (Auto) 14.[address] [place] % (Auto) 7.6 Eos % (Auto) 0.2 Baso % (Auto) 0.3 Lymph # (Auto) 2.02 [place] # (Auto) 1.1 H Eos # (Auto) 0.0 Baso # (Auto) 0.0 Abs Immat Gran (auto) 1.04 H Absolute Neuts (auto) 10.0 H Absolute Nucleated RBC 0.000 Nucleated RBC % 0.0 Sodium 133 L Potassium 3.5 Chloride 100 Carbon Dioxide 29 Anion Gap 4 BUN 7 Creatinine 0.50 L Estim Creat Clear Calc 163 Estimated GFR > 60 Glucose 111 H Calcium 8.1 L Magnesium 2.2 Total Bilirubin 0.9 AST 30 ALT 8 Alkaline Phosphatase 148 H Total Protein 6.0 L Albumin 2.9 L Quality VTE Prophylaxis VTE prophylaxis: pharmacologic ordered (Continue home Xarelto) Hospitalist [facility] Advance Care Plan I have confirmed that the patient's Advanced Care Plan is present, code status is documented, or surrogate decision maker is listed in patient medical record.: Yes Medication Reconciliation I have utilized all available resources to obtain, update and review the patients current medications (includes all prescriptions, OTC, herbals, cannabis, and nutritional supplements).: Yes
--- NOTE | 2024-01-24 18:18 | PC.NURSE ---
This patient, Leora Mcghee, was received from [facility] on 01/24/24 at 1818. Patient/family oriented to unit policies and routines
[2024-01-24] MEDS: RIVAROXABAN 20 MG TABLET PO (21:05)
[2024-01-24] MEDS: HYDROcodone/acetaminophen (*CRX) 5-325 MG TABLET 1 TAB PO (21:17)
[2024-01-25] VITALS (10 sets, daily range): BP systolic 111–130; BP diastolic 62–69; PULSE 68–121; RESP 12–20; TEMP 36.2–37.1; O2SAT 94–98
[2024-01-25] MEDS: dilTIAZem HCL 60 MG TABLET PO ×5 (00:25→22:59)
[2024-01-25] MEDS: ceFAZolin 2 GM/D5W 50 ML 2 GM/50 ML BAG IVPB ×3 (05:37→21:41)
[2024-01-25] MEDS: HYDROcodone/acetaminophen (*CRX) 5-325 MG TABLET 1 TAB PO ×3 (05:38→21:42)
[2024-01-25] MEDS: LEVOTHYROXINE SODIUM 100 MCG TABLET PO (05:38)
[2024-01-25 07:18] LABS: Hematocrit 36.3 % (37.0-47.0); Hemoglobin 11.7 g/dL (12.0-15.0); Mean Corpuscular HGB Conc 32.2 g/dl (32-36); Mean Corpuscular Hemoglobin 29.9 pg (26-34); Mean Corpuscular Volume 92.8 fl (80-100); Mean Platelet Volume 10.2 fl (7.4-10.4); Platelet Count Result 437 k/mm3 (150-375); Red Blood Count 3.91 M/mm3 (4.2-5.4); Red Cell Distribution Width 13.5 % (11.5-14.5)
[2024-01-25 07:30] LABS: Alanine Aminotransferase 8 U/L (6-35); Albumin Level 2.7 g/dL (3.5-5.1); Alkaline Phosphatase 161 U/L (38-126); Anion Gap 5 mmol/L (4-12); Aspartate Amino Transferase 31 U/L (14-36); Bilirubin,Total 0.8 mg/dL (0.2-1.3); Blood Urea Nitrogen 8 mg/dL (7-17); Calcium 7.9 mg/dL (8.4-10.2); Carbon Dioxide 33 mmol/L (22-30); Chloride 96 mmol/L (98-107); Estimated CRCL calculation 164 ml/min; Estimated Glomerular Filt Rate > 60; Glucose 115 mg/dL (65-110); Potassium 3.2 mmol/L (3.4-5.0); Sodium 134 mmol/L (137-145)
[2024-01-25] MEDS: MULTIVITS W-FE,MIN CHEWABLE TABLET 2 TABLET PO (09:18)
[2024-01-25] MEDS: SOTALOL HCL 40 MG, SOTALOL HCL 80 MG 120 MG PO ×2 (09:19→21:41)
[2024-01-25] MEDS: THIAMINE HCL 250 MG PO (09:20)
[2024-01-25] MEDS: CALCIUM CARBONATE (OSCAL) 500 MG TABLET PO (09:22)
[2024-01-25] MEDS: DOXYCYCLINE HYCLATE 100 MG TABLET PO ×2 (11:55→21:48)
--- NOTE | 2024-01-25 13:21 | PCPTNOTE ---
Attempted to see patient for Physical Therapy this afternoon. Patient declined and stated that she just got back into bed and she was tired and was having pain. Patient reports that she had been walking back and forth to the bathroom this morning. RN notified.
--- NOTE | 2024-01-25 15:16 | PM.IMPN ---
Progress Note: A&P Assessment and Plan (1) Cellulitis of left leg: Code(s): L03.116 - Cellulitis of left lower limb Status: Acute (2) Lymphedema of left lower extremity: Code(s): I89.0 - Lymphedema, not elsewhere classified Status: Acute (3) Atrial fibrillation with rapid ventricular response: Code(s): I48.91 - Unspecified atrial fibrillation Status: Acute (4) Acute dehydration: Code(s): E86.0 - Dehydration Status: Acute (5) Essential (primary) hypertension: Code(s): I10 - Essential (primary) hypertension Status: Acute (6) Chronic anticoagulation: Code(s): Z79.01 - custodial (current) use of anticoagulants Status: Acute (7) Hypothyroidism: Qualifiers: Hypothyroidism type: unspecified Qualified Code(s): E03.9 - Hypothyroidism, unspecified Code(s): E03.9 - Hypothyroidism, unspecified Status: Acute (8) Morbid obesity with BMI of 50.0-59.9, adult: Code(s): E66.01 - Morbid (severe) obesity due to excess calories; Z68.43 - Body mass index [BMI] 50.0-59.9, adult Status: Acute Plan Sepsis from Cellulitis Patient is still tachycardic; tachypnea and leukocytosis improving Patient has erythema on the left leg Blood culture preliminary result shows negative Continue cefazolin and doxycycline Monitor. Atrial fibrillation with rapid ventricular response Most likely from sepsis Improved with IV fluid Continue home sotalol monitor. Increase diltiazem to 60 mg q.6 hours Continue rivaroxaban. cardiology following Hypokalemia Replace, monitor on presents accordingly. Magnesium is 2.0 Monitor History of CHF Unspecified Titrate her medications with clinical course Monitor Chronic lymphedema Physical therapy consulted for lymphedema wraps. DVT prophylaxis on rivaroxaban. Subjective Date/time seen: 01/25/24 15:16 Interval history: Patient still has tachycardia with heart rate 110-140. Will follow-up with cardiology. Review of Systems Review of Systems: 12 systems were reviewed with pertinent positives and negatives per HPI. Except as documented in the HPI, all other systems were reviewed and are negative. Exam Narrative: Weight 168.3 kg BMI 58.1 Const: Other: Morbidly obese, no acute distress, appears stated age, well groomed HENMT: Other: Head is normocephalic atraumatic, mucous membranes are tacky, crowded posterior oropharynx, no oral pharyngeal erythema Eyes: Other: No scleral icterus, no conjunctival pallor, pupils are equal and reactive Neck: Other: Large neck circumference, supple, no JVD Resp: Other: Clear to auscultation bilaterally anterior brooks, no increased work of breathing Cardio: Other: Irregularly irregular, tachycardic, 2+ bilateral radial and pedal pulses, pulse in the left pedal is slightly stronger than the pulse in the right pedal GI: Other: Obese, nontender, positive bowel sounds Skin: Other: Marked erythema near circumferential of the left lower extremity including the toes top of the foot ankle and forefoot which are all hot to touch erythema extends up to just below the knee anteriorly and then extends further up the medial in the into the lower thigh the erythema at the knee and thigh is more violaceous in color, patient has skin changes consistent with chronic venous stasis dermatitis of the left anterior whiting/calf Neuro: Other: Alert oriented x4, speech is clear, no facial asymmetry, no localizing neurologic deficits noted during the course of conversation Extrem: Other: Patient is lymphedema chronic venous stasis changes of the left lower extremity left leg is more swollen than the right at baseline per patient but is increased edema since onset of current symptoms, she has severe tenderness to palpation of the ball of the foot, dorsum of the foot anterior and posterior calf and lateral left knee Psych: Other: Appropriate mood and affect, pleasant and cooperative, judgment and insight intact Objective Data Vital Signs Vital Signs: Vital Signs - 24 hr 01/24/24 15:49 01/24/24 16:00 01/24/24 16:00 Temperature 98.1 F Pulse Rate 101 H 101 H 107 H Respiratory Rate 16 16 Blood Pressure 118/74 Pulse Oximetry 97 97 Oxygen Delivery Room Air 01/24/24 18:20 01/24/24 20:00 01/24/24 21:05 Temperature 98.3 F 98.1 F Pulse Rate 87 102 H 100 Respiratory Rate 16 16 Blood Pressure 130/86 120/81 Pulse Oximetry 98 97 Oxygen Delivery 01/24/24 20:00 01/24/24 23:43 01/24/24 20:00 Temperature 97.3 F L Pulse Rate 103 H 111 H Respiratory Rate 13 Blood Pressure 125/70 Pulse Oximetry 97 Oxygen Delivery Room Air 01/25/24 00:00 01/25/24 00:00 01/25/24 01:01 Temperature Pulse Rate 103 H 121 H Respiratory Rate 13 Blood Pressure Pulse Oximetry 97 Oxygen Delivery Room Air Room Air 01/25/24 01:09 01/25/24 04:00 01/25/24 04:00 Temperature 97.1 F L Pulse Rate 107 H 109 H Respiratory Rate 12 Blood Pressure 130/68 Pulse Oximetry 97 Oxygen Delivery Room Air 01/25/24 09:19 01/25/24 08:00 01/25/24 08:00 Temperature 97.1 F L Pulse Rate 98 110 H 68 Respiratory Rate 20 Blood Pressure 117/69 Pulse Oximetry 95 Oxygen Delivery 01/25/24 09:20 01/25/24 12:00 Temperature 97.2 F L Pulse Rate 98 88 Respiratory Rate 20 16 Blood Pressure 117/66 Pulse Oximetry 95 98 Oxygen Delivery Room Air Intake/Output Intake/Output: Intake & Output 01/22/24 01/23/24 01/24/24 01/25/24 23:59 23:59 23:59 23:59 Intake Total 2831.9 1918.1 1430 1026 Output Total 800 1425 1000 Balance 2031.9 493.1 430 1026 Meds/Results Medications: Active Medications Generic Name Dose Route Start Last Admin Trade Name Freq PRN Reason Stop Dose Admin Acetaminophen 650 mg 01/21/24 01:41 01/23/24 21:19 Acetaminophen 325 Mg Tablet PO 650 mg Q4H PRN Administration Mild Pain (1-3) or Fever Hydrocodone Bitart/Acetaminophen 1 tab 01/21/24 20:17 01/25/24 05:38 Hydrocodone/Acetaminophen (*Crx) 5-325 Mg Tablet PO 1 tab Q4H PRN Administration Pain Rated 4-6 Calcium Carbonate 500 mg 01/21/24 09:00 01/25/24 09:22 Calcium Carbonate (Oscal) 500 Mg Tablet PO 500 mg QAM SUN Administration Cyanocobalamin 5,000 mcg 01/21/24 09:00 01/25/24 09:19 Cyanocobalamin 1,000 Mcg Tablet PO Not Given DAILY SUN Diltiazem HCl 60 mg 01/24/24 12:00 01/25/24 11:55 Diltiazem Hcl 60 Mg Tablet PO 60 mg Q6HR SUN Administration Doxycycline Hyclate 100 mg 01/23/24 11:00 01/25/24 11:55 Doxycycline Hyclate 100 Mg Tablet PO 100 mg 1100,2200 [facility] Administration Ferrous Gluconate 324 mg 01/21/24 08:00 01/25/24 09:17 Ferrous Gluconate 324 Mg Tablet PO Not Given DAILY@0800 [facility] Cefazolin Sodium 2 gm in 50 mls @ 100 mls/hr 01/23/24 15:00 01/25/24 06:07 Ancef 2 Gm/D5w 50 Ml IVPB Infused Q8HR [facility] Infusion Levothyroxine Sodium 100 mcg 01/21/24 06:30 01/25/24 05:38 Levothyroxine Sodium 100 Mcg Tablet PO 100 mcg DAILY@0630 [facility] Administration Multivitamins/Minerals 2 tablet 01/21/24 09:00 01/25/24 09:18 Multivits W-Fe,Min Chewable Tablet PO 2 tablet DAILY [facility] Administration Rivaroxaban 20 mg 01/21/24 21:00 01/24/24 21:05 Rivaroxaban 20 Mg Tablet PO 20 mg HS SUN Administration Sotalol HCl 40 mg/ Sotalol HCl 120 mg 01/21/24 09:00 01/25/24 09:19 80 mg PO 120 mg Q12HR SUN Administration Thiamine HCl 200 mg/ Thiamine 250 mg 01/21/24 09:00 01/25/24 09:20 HCl 50 mg PO 250 mg DAILY SUN Administration Radiology Results: ITS Impressions Chest X-Ray 01/20/24 21:43 IMPRESSION: No acute cardiopulmonary pathology. Venous Doppler Study 01/22/24 10:48 IMPRESSION: 1. No deep venous thrombosis. 2. Moderate-sized Craven's cyst. Labs Labs: Laboratory Results - last 24 hr 01/25/24 06:30 WBC 13.0 H RBC 3.91 L Hgb 11.7 L Hct 36.3 L MCV 92.8 MCH 29.9 MCHC 32.2 RDW 13.5 Plt Count 437 H MPV 10.2 Sodium 134 L Potassium 3.2 L Chloride 96 L Carbon Dioxide 33 H Anion Gap 5 BUN 8 Creatinine 0.50 L Estim Creat Clear Calc 164 Estimated GFR > 60 Glucose 115 H Calcium 7.9 L Total Bilirubin 0.8 AST 31 ALT 8 Alkaline Phosphatase 161 H Total Protein 6.0 L Albumin 2.7 L Quality VTE Prophylaxis VTE prophylaxis: pharmacologic ordered (Continue home Xarelto) Hospitalist [facility] Advance Care Plan I have confirmed that the patient's Advanced Care Plan is present, code status is documented, or surrogate decision maker is listed in patient medical record.: Yes Medication Reconciliation I have utilized all available resources to obtain, update and review the patients current medications (includes all prescriptions, OTC, herbals, cannabis, and nutritional supplements).: Yes
[2024-01-25] MEDS: RIVAROXABAN 20 MG TABLET PO (21:42)
[2024-01-26] VITALS: PULSE 100
[2024-01-26 04:00] VITALS: PULSE 96
[2024-01-26] MEDS: LEVOTHYROXINE SODIUM 100 MCG TABLET PO (06:04)
[2024-01-26] MEDS: ceFAZolin 2 GM/D5W 50 ML 2 GM/50 ML BAG IVPB ×2 (06:04→13:39)
[2024-01-26] MEDS: dilTIAZem HCL 60 MG TABLET PO ×2 (06:04→11:20)
[2024-01-26 07:34] LABS: Hematocrit 36.7 % (37.0-47.0); Hemoglobin 11.8 g/dL (12.0-15.0); Mean Corpuscular HGB Conc 32.2 g/dl (32-36); Mean Corpuscular Hemoglobin 29.9 pg (26-34); Mean Corpuscular Volume 93.1 fl (80-100); Platelet Count Result 451 k/mm3 (150-375); Red Blood Count 3.94 M/mm3 (4.2-5.4); Red Cell Distribution Width 13.5 % (11.5-14.5); White Blood Count 12.2 K/mm3 (4.5-10.0)
[2024-01-26 08:00] VITALS: BP 108/65; PULSE 113; PULSE 83; RESP 20; TEMP 36.6; O2SAT 97
[2024-01-26 08:59] LABS: Alanine Aminotransferase 9 U/L (6-35); Albumin Level 2.6 g/dL (3.5-5.1); Alkaline Phosphatase 182 U/L (38-126); Anion Gap 3 mmol/L (4-12); Aspartate Amino Transferase 53 U/L (14-36); Bilirubin,Total 0.7 mg/dL (0.2-1.3); Blood Urea Nitrogen 9 mg/dL (7-17); Calcium 7.9 mg/dL (8.4-10.2); Carbon Dioxide 34 mmol/L (22-30); Chloride 95 mmol/L (98-107); Estimated CRCL calculation 139 ml/min; Estimated Glomerular Filt Rate > 60; Glucose 122 mg/dL (65-110); Potassium 3.3 mmol/L (3.4-5.0); Sodium 132 mmol/L (137-145)
[2024-01-26 09:24] VITALS: PULSE 96
[2024-01-26] MEDS: CALCIUM CARBONATE (OSCAL) 500 MG TABLET PO (09:24)
[2024-01-26] MEDS: MULTIVITS W-FE,MIN CHEWABLE TABLET 2 TABLET PO (09:24)
[2024-01-26] MEDS: SOTALOL HCL 40 MG, SOTALOL HCL 80 MG 120 MG PO (09:24)
[2024-01-26] MEDS: THIAMINE HCL 250 MG PO (09:24)
[2024-01-26] MEDS: HYDROcodone/acetaminophen (*CRX) 5-325 MG TABLET 1 TAB PO (09:27)
[2024-01-26] MEDS: DOXYCYCLINE HYCLATE 100 MG TABLET PO (11:20)
[2024-01-26 12:00] VITALS: PULSE 101
--- NOTE | 2024-01-26 13:06 | PM.IMPN ---
Subjective Date/time seen: 01/26/24 13:06 Objective Data Vital Signs Vital Signs: Vital Signs - 24 hr 01/25/24 16:00 01/25/24 16:00 01/25/24 21:28 Temperature 98.6 F 98.8 F Pulse Rate 109 H 109 H 103 H Respiratory Rate 18 16 Blood Pressure 111/68 121/62 Pulse Oximetry 94 98 Oxygen Delivery 01/25/24 21:41 01/25/24 20:00 01/25/24 20:00 Temperature Pulse Rate 111 H 110 H Respiratory Rate Blood Pressure Pulse Oximetry Oxygen Delivery Room Air 01/26/24 00:00 01/25/24 20:00 01/26/24 04:00 Temperature Pulse Rate 100 96 Respiratory Rate Blood Pressure Pulse Oximetry 94 Oxygen Delivery Room Air 01/26/24 09:24 01/26/24 09:20 01/26/24 08:00 Temperature Pulse Rate 96 113 H Respiratory Rate Blood Pressure Pulse Oximetry Oxygen Delivery Room Air Intake/Output Intake/Output: Intake & Output 01/23/24 01/24/24 01/25/24 01/26/24 23:59 23:59 23:59 23:59 Intake Total 1918.1 1430 1246 1040 Output Total 1425 1000 Balance 493.1 430 1246 1040 Meds/Results Medications: Active Medications Generic Name Dose Route Start Last Admin Trade Name Freq PRN Reason Stop Dose Admin Acetaminophen 650 mg 01/21/24 01:41 01/23/24 21:19 Acetaminophen 325 Mg Tablet PO 650 mg Q4H PRN Administration Mild Pain (1-3) or Fever Hydrocodone Bitart/Acetaminophen 1 tab 01/21/24 20:17 01/26/24 09:27 Hydrocodone/Acetaminophen (*Crx) 5-325 Mg Tablet PO 1 tab Q4H PRN Administration Pain Rated 4-6 Calcium Carbonate 500 mg 01/21/24 09:00 01/26/24 09:24 Calcium Carbonate (Oscal) 500 Mg Tablet PO 500 mg QAM SUN Administration Cyanocobalamin 5,000 mcg 01/21/24 09:00 01/26/24 09:25 Cyanocobalamin 1,000 Mcg Tablet PO Not Given DAILY SUN Diltiazem HCl 60 mg 01/24/24 12:00 01/26/24 11:20 Diltiazem Hcl 60 Mg Tablet PO 60 mg Q6HR SUN Administration Doxycycline Hyclate 100 mg 01/23/24 11:00 01/26/24 11:20 Doxycycline Hyclate 100 Mg Tablet PO 100 mg 1100,2200 [facility] Administration Ferrous Gluconate 324 mg 01/21/24 08:00 01/26/24 09:24 Ferrous Gluconate 324 Mg Tablet PO Not Given DAILY@0800 [facility] Cefazolin Sodium 2 gm in 50 mls @ 100 mls/hr 01/23/24 15:00 01/26/24 06:34 Ancef 2 Gm/D5w 50 Ml IVPB Infused Q8HR [facility] Infusion Levothyroxine Sodium 100 mcg 01/21/24 06:30 01/26/24 06:04 Levothyroxine Sodium 100 Mcg Tablet PO 100 mcg DAILY@0630 [facility] Administration Multivitamins/Minerals 2 tablet 01/21/24 09:00 01/26/24 09:24 Multivits W-Fe,Min Chewable Tablet PO 2 tablet DAILY [facility] Administration Rivaroxaban 20 mg 01/21/24 21:00 01/25/24 21:42 Rivaroxaban 20 Mg Tablet PO 20 mg HS [facility] Administration Sotalol HCl 40 mg/ Sotalol HCl 120 mg 01/21/24 09:00 01/26/24 09:24 80 mg PO 120 mg Q12HR [facility] Administration Thiamine HCl 200 mg/ Thiamine 250 mg 01/21/24 09:00 01/26/24 09:24 HCl 50 mg PO 250 mg DAILY [facility] Administration Radiology Results: ITS Impressions Chest X-Ray 01/20/24 21:43 IMPRESSION: No acute cardiopulmonary pathology. Venous Doppler Study 01/22/24 10:48 IMPRESSION: 1. No deep venous thrombosis. 2. Moderate-sized Craven's cyst. Labs Labs: Laboratory Results - last 24 hr 01/26/24 06:49 WBC 12.2 H RBC 3.94 L Hgb 11.8 L Hct 36.7 L MCV 93.1 MCH 29.9 MCHC 32.2 RDW 13.5 Plt Count 451 H MPV 10.0 Sodium 132 L Potassium 3.3 L Chloride 95 L Carbon Dioxide 34 H Anion Gap 3 L BUN 9 Creatinine 0.60 L Estim Creat Clear Calc 139 Estimated GFR > 60 Glucose 122 H Calcium 7.9 L Total Bilirubin 0.7 AST 53 H ALT 9 Alkaline Phosphatase 182 H Total Protein 6.0 L Albumin 2.6 L
--- NOTE | 2024-01-26 13:49 | PM.DS ---
DS: Admitting Diagnosis Discharge Date 01/26/2024 Admitting Diagnosis Weakness, painful red rash to left leg DS: Discharge Diagnosis Discharge Diagnosis (1) Cellulitis of left leg: Code(s): L03.116 - Cellulitis of left lower limb Status: Acute Assessment and Plan: Please refer to hospital course before brief summary (2) Lymphedema of left lower extremity: Code(s): I89.0 - Lymphedema, not elsewhere classified Status: Acute (3) Atrial fibrillation with rapid ventricular response: Code(s): I48.91 - Unspecified atrial fibrillation Status: Acute (4) Acute dehydration: Code(s): E86.0 - Dehydration Status: Acute (5) Essential (primary) hypertension: Code(s): I10 - Essential (primary) hypertension Status: Acute (6) Chronic anticoagulation: Code(s): Z79.01 - intermediate card tender (current) use of anticoagulants Status: Acute (7) Hypothyroidism: Qualifiers: Hypothyroidism type: unspecified Qualified Code(s): E03.9 - Hypothyroidism, unspecified Code(s): E03.9 - Hypothyroidism, unspecified Status: Acute (8) Morbid obesity with BMI of 50.0-59.9, adult: Code(s): E66.01 - Morbid (severe) obesity due to excess calories; Z68.43 - Body mass index [BMI] 50.0-59.9, adult Status: Acute Plan Sepsis from Cellulitis Patient is still tachycardic; tachypnea and leukocytosis improving Patient has erythema on the left leg Blood culture preliminary result shows negative Continue cefazolin and doxycycline Monitor. Atrial fibrillation with rapid ventricular response Most likely from sepsis Improved with IV fluid Continue home sotalol monitor. Increase diltiazem to 60 mg q.6 hours Continue rivaroxaban. cardiology following Hypokalemia Replace, monitor on presents accordingly. Magnesium is 2.0 Monitor History of CHF Unspecified Titrate her medications with clinical course Monitor Chronic lymphedema Physical therapy consulted for lymphedema wraps. DVT prophylaxis on rivaroxaban. DS: Summary Hospital Course Hospital Course: 63-year-old female with a past medical history of morbid obesity, chronic venous stasis dermatitis of the lower extremity, what looks like chronic lymphedema of the left lower extremity, hypothyroidism and longstanding history of atrial fibrillation on anticoagulation with Xarelto who presented to the ER with 5 days of weakness, subjective fevers, chills and painful erythematous rash to her left lower extremity. Patient reports that she started having chills on Tuesday (5 days ago). She did not check her temperature but the next day she noted marked erythema to the right lower extremity that started on the calf near her area of chronic venous stasis dermatitis. She was so ill on Tuesday and Tuesday that she was weak and could not get out of bed so she did not take her sotalol or Xarelto on those days. She noticed that the leg had also become more swollen compared to baseline. It was acutely painful to touch and erythema had progressively worsened and was circumferential. The erythema then started to climb up her leg to the medial and anterior knee. The pain is worse with movement, weight-bearing and touch. She tried some Tylenol for her pain and suspected fever. That Tylenol only provided minimal relief. She does report that she scraped at leg on the cart or when she was trying to get into the car the week prior. She has never had cellulitis before. She denies being told that she has a lymphedema but reports that her left leg is always more swollen than her right leg. Her sister does have a history of bilateral lower extremity lymphedema. Patient denies history of obstructive sleep apnea but has never had a sleep study. She does have history of pulmonary hypertension. During hospitalization patient started on Ancef and on discharged with Keflex and Doxycycline. Also her A.fib with RVR was aggravated by sepsis and started Diltiazem which was titrated to 240 mg PO QD in addition to her home Sotalol 120 PO BID. Time Spent with Patient Time attestation: Total time spent providing and/or coordinating discharge services: Exam Narrative: Weight 168.3 kg BMI 58.1 Const: Other: Morbidly obese, no acute distress, appears stated age, well groomed HENMT: Other: Head is normocephalic atraumatic, mucous membranes are tacky, crowded posterior oropharynx, no oral pharyngeal erythema Eyes: Other: No scleral icterus, no conjunctival pallor, pupils are equal and reactive Neck: Other: Large neck circumference, supple, no JVD Resp: Other: Clear to auscultation bilaterally anterior brooks, no increased work of breathing Cardio: Other: Irregularly irregular, tachycardic, 2+ bilateral radial and pedal pulses, pulse in the left pedal is slightly stronger than the pulse in the right pedal GI: Other: Obese, nontender, positive bowel sounds Skin: Other: Marked erythema near circumferential of the left lower extremity including the toes top of the foot ankle and forefoot which are all hot to touch erythema extends up to just below the knee anteriorly and then extends further up the medial in the into the lower thigh the erythema at the knee and thigh is more violaceous in color, patient has skin changes consistent with chronic venous stasis dermatitis of the left anterior whiting/calf Neuro: Other: Alert oriented x4, speech is clear, no facial asymmetry, no localizing neurologic deficits noted during the course of conversation Extrem: Other: Patient is lymphedema chronic venous stasis changes of the left lower extremity left leg is more swollen than the right at baseline per patient but is increased edema since onset of current symptoms, she has severe tenderness to palpation of the ball of the foot, dorsum of the foot anterior and posterior calf and lateral left knee Psych: Other: Appropriate mood and affect, pleasant and cooperative, judgment and insight intact DS: Data Data Completed and Pending Labs on day of discharge: Labs from last 24 hours 01/26/24 06:49 WBC 12.2 H RBC 3.94 L Hgb 11.8 L Hct 36.7 L MCV 93.1 MCH 29.9 MCHC 32.2 RDW 13.5 Plt Count 451 H MPV 10.0 Sodium 132 L Potassium 3.3 L Chloride 95 L Carbon Dioxide 34 H Anion Gap 3 L BUN 9 Creatinine 0.60 L Estim Creat Clear Calc 139 Estimated GFR > 60 Glucose 122 H Calcium 7.9 L Total Bilirubin 0.7 AST 53 H ALT 9 Alkaline Phosphatase 182 H Total Protein 6.0 L Albumin 2.6 L Imaging Radiologist's impression: ITS Impressions Chest X-Ray 01/20/24 21:43 IMPRESSION: No acute cardiopulmonary pathology. Venous Doppler Study 01/22/24 10:48 IMPRESSION: 1. No deep venous thrombosis. 2. Moderate-sized Craven's cyst. Discharge Plan Discharge Attending physician on discharge: Graeme Guerrero Consulting providers: Jaxon Beck Discharging Clinician: Graeme Guerrero Anticipated Discharge Date/Time: 01/26/24 14:12 Patient Disposition: Home, Self-Care Activity: as tolerated Diet: heart healthy Discharge Instructions: Advised to follow-up with Cardiology within a week upon discharge. Continue Keflex find mg p.o. q.6 hours and doxycycline 100 mg p.o. q.d. both until 02/04. In the event of severe leg pain, fever or other constitutional symptoms please visit ER. Patient Instructions: Antibiotic Form, Rivaroxaban (By mouth), A-fib (Atrial Fibrillation) (DC), Cellulitis (GEN), Safe Use of Anticoagulants (DC) Stand Alone Forms: General Discharge Information Follow-up/Referrals: Jaxon Beck MD [Physician] - 1 Week (Possible cardioversion as an outpatient.) Justice Ricci DO [Primary Care Provider] - 1 Week Discharge Medications: New cephalexin 500 mg Capsule 500 mg PO Q6HR Qty: 45 0RF doxycycline hyclate 100 mg Tablet 100 mg PO 1100,2200 Qty: 25 0RF diltiazem HCl 240 mg capsule,extended release 24 hr 240 mg PO DAILY Qty: 30 0RF Continued calcium carbonate [Calcium 600] 600 mg calcium (1,500 mg) tablet 600 mg PO DAILY Xarelto 20 mg Tablet 20 mg PO HS Flintstones Complete Tablet,Chewable 2 tablet PO DAILY thiamine HCl (vitamin B1) 250 mg Tablet 250 mg PO DAILY sotalol 120 mg tablet 120 mg PO Q12H ferrous gluconate 225 mg (27 mg iron) Tablet 225 mg PO DAILY cyanocobalamin (vitamin B-12) 5,000 mcg Tablet,Disintegrating 5,000 mcg PO DAILY levothyroxine [Synthroid] 100 mcg tablet 100 mcg PO DAILY Qty: 90 3RF Date of admission: 01/23/24 13:40 Primary Care Provider: Justice Ricci Admitting Provider: Za Chirinos Attending physician on admission: Tomasa Holm Condition: Stable
--- NOTE | 2024-01-26 14:02 | P.PNCA_ITS ---
Progress Note: A&P Assessment and Plan (1) Atrial fibrillation with rapid ventricular response: Code(s): I48.91 - Unspecified atrial fibrillation Status: Acute Plan Left lower extremity cellulitis on top of lymphedema AFib with RVR likely triggered by sepsis Plan Continue oral anticoagulation Xarelto Continue sotalol Diltiazem can be shifted to long acting form for dosing convenience at discharge OK for discharge from cardiac standpoint Will plan to schedule for outpatient DCC[facility] to take place in the next couple of weeks. Subjective Date/time seen: 01/26/24 14:02 Interval history: Cardiology follow up for atrial fibrillation Date of service 01/23/2024: She complains of feeling palpitations at times while at rest and while active. On telemetry HR generally controlled around 100 bpm. Date of service 01/24/2024: Having periodic tachycardia with rates in the 120's. Continues to feel palpitations but otherwise has no complaints. Date of service 01/26/2024: Feels okay today. Heart rate is not well controlled, HR predominantly in the 90's. Review of Systems Review of Systems: All systems reviewed & are unremarkable except as noted in HPI and below Exam Const: General: comfortable and no acute distress Other: Able to lie flat HENMT: Face/Nose/Sinus: Normal nares present and no epistaxis Mouth: Yes moist mucous membranes Eyes: Sclera: sclerae normal Pupils: Equal, round and reactive pupils present Neck: Neck: supple and no JVD Carotids: no bruits Resp: Auscultation: clear to auscultation bilaterally and lung sounds not diminished Other: No chest wall tenderness Cardio: Rate: regular rate Rhythm: abnormal rhythm irregularly irregular Heart sounds: no gallops, no murmurs and no rubs GI: Auscultation: normal bowel sounds Skin: General skin exam: normal color, rashes and/or lesions noted and erythema (Left lower extremity edema and erythema) Other: Warm Neuro: Cranial nerves: Yes Equal, round and reactive pupils present Speech: normal speech Other: No obvious focal deficit or facial asymmetry Extrem: General: no edema Other: Normal capillary refills Objective Data Vital Signs Vital Signs: Vital Signs - 24 hr 01/25/24 16:00 01/25/24 16:00 01/25/24 21:28 Temperature 37.0 C 37.1 C Pulse Rate 109 H 109 H 103 H Respiratory Rate 18 16 Blood Pressure 111/68 121/62 Pulse Oximetry 94 98 Oxygen Delivery 01/25/24 21:41 01/25/24 20:00 01/25/24 20:00 Temperature Pulse Rate 111 H 110 H Respiratory Rate Blood Pressure Pulse Oximetry Oxygen Delivery Room Air 01/26/24 00:00 01/25/24 20:00 01/26/24 04:00 Temperature Pulse Rate 100 96 Respiratory Rate Blood Pressure Pulse Oximetry 94 Oxygen Delivery Room Air 01/26/24 09:24 01/26/24 09:20 01/26/24 08:00 Temperature Pulse Rate 96 113 H Respiratory Rate Blood Pressure Pulse Oximetry Oxygen Delivery Room Air Intake/Output Intake/Output: Intake & Output 01/23/24 01/24/24 01/25/24 01/26/24 23:59 23:59 23:59 23:59 Intake Total 1918.1 1430 1246 1040 Output Total 1425 1000 Balance 493.1 430 1246 1040 Meds/Results Medications: Active Medications Generic Name Dose Route Start Last Admin Trade Name Freq PRN Reason Stop Dose Admin Acetaminophen 650 mg 01/21/24 01:41 01/23/24 21:19 Acetaminophen 325 Mg Tablet PO 650 mg Q4H PRN Administration Mild Pain (1-3) or Fever Hydrocodone Bitart/Acetaminophen 1 tab 01/21/24 20:17 01/26/24 09:27 Hydrocodone/Acetaminophen (*Crx) 5-325 Mg Tablet PO 1 tab Q4H PRN Administration Pain Rated 4-6 Calcium Carbonate 500 mg 01/21/24 09:00 01/26/24 09:24 Calcium Carbonate (Oscal) 500 Mg Tablet PO 500 mg QAM SUN Administration Cephalexin HCl 500 mg 01/26/24 18:00 Cephalexin 500 Mg Capsule PO 02/05/24 23:59 Q6HR SUN Cyanocobalamin 5,000 mcg 01/21/24 09:00 01/26/24 09:25 Cyanocobalamin 1,000 Mcg Tablet PO Not Given DAILY SUN Diltiazem HCl 60 mg 01/24/24 12:00 01/26/24 11:20 Diltiazem Hcl 60 Mg Tablet PO 60 mg Q6HR SUN Administration Doxycycline Hyclate 100 mg 01/23/24 11:00 01/26/24 11:20 Doxycycline Hyclate 100 Mg Tablet PO 02/05/24 22:01 100 mg 1100,2200 [facility] Administration Ferrous Gluconate 324 mg 01/21/24 08:00 01/26/24 09:24 Ferrous Gluconate 324 Mg Tablet PO Not Given DAILY@0800 [facility] Levothyroxine Sodium 100 mcg 01/21/24 06:30 01/26/24 06:04 Levothyroxine Sodium 100 Mcg Tablet PO 100 mcg DAILY@0630 [facility] Administration Multivitamins/Minerals 2 tablet 01/21/24 09:00 01/26/24 09:24 Multivits W-Fe,Min Chewable Tablet PO 2 tablet DAILY SUN Administration Rivaroxaban 20 mg 01/21/24 21:00 01/25/24 21:42 Rivaroxaban 20 Mg Tablet PO 20 mg HS [facility] Administration Sotalol HCl 40 mg/ Sotalol HCl 120 mg 01/21/24 09:00 01/26/24 09:24 80 mg PO 120 mg Q12HR SUN Administration Thiamine HCl 200 mg/ Thiamine 250 mg 01/21/24 09:00 01/26/24 09:24 HCl 50 mg PO 250 mg DAILY SUN Administration Radiology Results: ITS Impressions Chest X-Ray 01/20/24 21:43 IMPRESSION: No acute cardiopulmonary pathology. Venous Doppler Study 01/22/24 10:48 IMPRESSION: 1. No deep venous thrombosis. 2. Moderate-sized Craven's cyst. Labs Labs: Laboratory Results - last 24 hr 01/26/24 06:49 WBC 12.2 H RBC 3.94 L Hgb 11.8 L Hct 36.7 L MCV 93.1 MCH 29.9 MCHC 32.2 RDW 13.5 Plt Count 451 H MPV 10.0 Sodium 132 L Potassium 3.3 L Chloride 95 L Carbon Dioxide 34 H Anion Gap 3 L BUN 9 Creatinine 0.60 L Estim Creat Clear Calc 139 Estimated GFR > 60 Glucose 122 H Calcium 7.9 L Total Bilirubin 0.7 AST 53 H ALT 9 Alkaline Phosphatase 182 H Total Protein 6.0 L Albumin 2.6 L Quality VTE Prophylaxis VTE prophylaxis: pharmacologic ordered (Continue home Xarelto)
== END 2024-01-26 17:00 | disposition home or self-care (01) | DRG 603 ==
LOC: ANHED 01-21 00:37 → ANHIMU 01-21 02:26 → ANH3MEDSUR 01-26 14:17 → ANHIMU 01-27 15:14
PROVIDERS: Internal Medicine; Admitting Provider Internal Medicine; Emergency Provider Emergency Medicine; PCP Internal Medicine; Visit Provider General Practice
DX: L03.116 Cellulitis of left lower limb (principal); I50.32 Chronic diastolic (congestive) heart failure; I48.20 Chronic atrial fibrillation, unspecified; Z68.43 Body mass index [BMI] 50.0-59.9, adult; I11.0 Hypertensive heart disease with heart failure; I27.20 Pulmonary hypertension, unspecified; I89.0 Lymphedema, not elsewhere classified; I87.2 Venous insufficiency (chronic) (peripheral); E86.0 Dehydration; E03.9 Hypothyroidism, unspecified; E66.01 Morbid (severe) obesity due to excess calories; Z20.822 Contact with and (suspected) exposure to COVID-19; Z79.01 Long term (current) use of anticoagulants; E87.6 Hypokalemia
CPT/HCPCS: 36415; 71045; 80048; 80053; 81001; 82948; 83605; 83735; 83880; 84145; 84484; 85025; 85027; 85610; 85730; 87040; 87637; 93005; 93971; 96361; 96365; 96366; 96367; 96374; 96375; 96376; 97110; 97161; 97530; 99285; A9270; G0378; J0690; J3480; J7030; J7040

== ENCOUNTER 2024-03-29 00:51 | Day surgery (SDC) | payer OTHER, SELFPAY ==
[2024-03-21 16:12] VITALS: BMI 57.0
--- NOTE | 2024-03-21 16:33 | PC.NURSE ---
Spoke with _PATIENT_ regarding medication _XARELTO_. _PATIENT_verbalizes understanding that the last dose is to be taken on _03/26/24__ and the Endoscopist will instruct them when to restart after the procedure.
--- OUTSIDE RECORDS SUMMARY | 2024-03-29 00:54 | XMS_ITS | Data Portability ---
Author Organization [place] - [facility] OFFICE Address [address] [place] [address] Care Team Providers Care Cable Puller Name Role Phone TRACY CABRERA Primary Care Provider TRACY CABRERA Referring Provider [phone] Assessment No assessment recorded. Plan of Treatment Reminders Order Date Submit Date Provider Last Modified By Organization Details Last Modified Time Details Appointments None recorded. Lab None recorded. Referral None recorded. Procedures None recorded. Surgeries None recorded. Imaging electrocar diogram 2016 017 [email or web address] Not available 10:14:03 Medication Orders magnesium oxide 400 mg (241.3 mg magnesium) tablet 2016 017 INTERFACE [id number], [address] , [place], [address], 7 02:18:07 Patient TargetsNo targets recorded. Patient Instructions Encounter Date Encounter Id Patient Instructions Last Modified By Organization Details Last Modified Time 07/08/2016 [id number] palpitations: care instructions [email or web address] Not available 07/08/2016 17:42:46 01/06/2017 [id number] palpitations: care instructions [email or web address] Not available 01/12/2017 17:27:45 02/03/2017 [id number] palpitations: care instructions [email or web address] Not available 02/03/2017 13:32:11 Reason for Referral None Reported. Results Created Date Observation Date Name Description Value Unit Range Abnormal Flag Note LastModifiedBy Organization Detail LastModifiedTime 07/09/19 17 07/08/2016 elect rochugh saltergr am Result EKG (07/08): NSR, NSST change s Not Available Timo Constantino MD [address], [place], [address], 07/08/2016 16:11:03 06/29/19 17 06/23/2016 US, echoc ardio gram, trans thora cic, compl ete, w/ color flow No observ ation record ed. [email or web address] Not Available 2016 12:18:19 06/29/19 17 06/23/2016 XR, chest No observ ation record ed. [email or web address] Not Available 2016 12:22:09 07/10/19 17 07/08/2016 elect rocar diogr am No observ ation record ed. [email or web address] Not Available 2016 16:43:33 07/16/19 17 07/15/2016 elect rocar diogr am No observ ation record ed. [email or web address] Not Available 2016 16:42:51 07/29/19 17 06/23/2016 XR, chest No observ ation record ed. [email or web address] Not Available 2016 16:31:30 07/29/19 17 06/23/2016 US, echoc ardio gram No observ ation record ed. [email or web address] Not Available 2016 16:29:45 01/13/20 17 01/06/2017 elect rocar diogr am No observ ation record ed. [email or web address] Not Available 2016 12:17:42 02/28/19 18 01/20/2017 ta r monit or No observ ation record ed. [email or web address] Not Available 2017 11:26:15 Result Notes Documentation Provider Name and Address Organization Details Recorded Time Pt/inr : 06/29/16 : PT 12.7, INR 1.0 , PTT 29 . Kali witt [place] - [facility] 07/28/2016 16:40:54 Lipid Panel, Blood : 06/28/16 : SOD 142,K 3.7,CL 103,CO2 29,GLU 100,BUN 11,CR 0.7,AST 24,ALT 26, TC 109,TG 140,HDL 41,LDL 48. DAVON [place] - [facility] 07/28/2016 16:39:54 Xr, Chest : XR, Chest 06/23/16 : no acute cardiopulmonary findings . Kali w[place] - [facility] 07/28/2016 16:31:30 Bmp, Serum Or Plasma : GLU:95, BUN:15, CR:0.64, NA:142, K:4.8, CL:101, CO2:23 [place], [place] - [facility] 01/30/2017 17:40:31 Lipid Panel, Blood : TC:151, TR:178, HDL:52, LDL:63 Kali Vicente [facility], [place] - [facility] 01/30/2017 17:40:31 Tsh, Serum Or Plasma : TSH: 2.560 Kali Vicente [facility], [place] - [facility] 01/30/2017 17:40:31 Magnesium, Free, Serum : M.0 Kali Vicente [facility], [place] - [facility] 01/30/2017 17:40:31 Problems Name Problem SNOMED Code Status Onset Date Resolution Date Notes Provider Name and Address Organization Details Recorded Time Atrial fibrillati on 84284694 Active 2016 with RVR Enoc Wise [facility], [place] - [facility] 7 15:07:07 Benign hypertensi on 05224337 Active 2016 Enoc Wise [facility], [place] - [facility] 7 14:55:13 Palpitatio ns 19964363 [facility] [place] [facility] 7 14:55:26 Dyspnea 887780735 Active 2016 Enoc Wise [facility], [place] - [facility] 7 15:00:27 Hypothyroi dism 21965643 Active 2016 sp radiothera py 2002 Fredijose Nair [facility], [place] - [facility] 7 16:33:16 Edema of lower extremity 452904715 Active 2016 Ela Quiñones [facility], [place] - [facility] 7 15:55:30 Paroxysmal atrial fibrillati on 169228386 Active 2016 Fredi Nair [facility], [place] - [facility] 7 16:33:28 Hypertrigl yceridemia 990139783 Active 2016 Fredi Nair null, [place] - [facility] 7 13:23:33 Problem Notes None recorded. Procedures Surgical History Date Name Laterality Status Provider Name and Address Organization Details Recorded Time Caesarean Section completed [facility] 07/08/2016 16:03:44 Cholecystectomy completed [facility] 07/08/2016 16:03:52 Colonoscopy completed [facility] 07/08/2016 16:04:31 Imaging Results Imaging Date Name Status LastModified by Organization Details LastModified Time 06/23/2016 US, echocardiogram, transthoracic, complete, w/ color flow completed Information not available 06/30/2016 12:18:19 06/23/2016 XR, chest completed Information no t available 06/30/2016 12:22:09 07/08/2016 electrocardiogram completed Informa tion not available 07/28/2016 16:43:33 07/15/2016 electrocardiogram completed Informa tion not available 07/28/2016 16:42:51 06/23/2016 XR, chest completed Information no t available 07/28/2016 16:31:30 06/23/2016 US, echocardiogram completed Inform ation not available 07/28/2016 16:29:45 01/06/2017 electrocardiogram completed Informa tion not available 01/13/2017 12:17:42 01/20/2017 holter monitor completed [email or web address] Informatio n not available 02/28/2017 11:26:15 Procedure Notes None recorded. Medical Equipment None Reported. Allergies No known drug allergies Medications Name Sig Start Date Stop Date Status Note LastModified by Organization Details LastModified Time aspirin 325 mg tablet Take 1 tablet every day by oral route as directed . active Not Available Not Available No t Available Synthroid 100 mcg tablet Take 1 tablet every day by oral route as directed . active Not Available Not Available No t Available atenolol 25 mg tablet 07/08 completed Not Available Not Available Not Available Cardizem 30 mg tablet Take 1 tablet twice a day by oral route. 2016 active Not Available Not Available Not Avai lable Zofran 4 mg tablet Take 1 tablet every 6 hours by oral route as needed. 01/06 completed Not Available Not Available Not Available zinc sulfate 50 mg zinc (220 mg) tablet Take 1 tablet every day by oral route. 07/08 completed Not Available Not Available Not Available magnesium oxide 400 mg (241.3 mg magnesium ) tablet Take 1 tablet every other day by oral route. active Not Available Not Available No t Available diltiazem CD 120 mg capsule,e xtended release 24 hr 1 tab qd 07/20 completed Pt can't take time release medicati ons Not Available Not Available Not Available zinc 50 mg tablet Take 1 tablet every day by oral route as directed . active Not Available Not Available No t Available ferrous gluconate 27 mg tablet Take 1 tablet every day by oral route as directed . active Not Available Not Available No t Available Vitamin D3 25 mcg (1,000 unit) tablet Take 1 tablet every day by oral route. active qam Not Available Not Available No t Available metoprolo l tartrate 25 mg tablet Take 0.5 tablets twice a day by oral route. 02/04 completed Not Available Not Available Not Available diltiazem 125 mg/125 mL (1 mg/mL) in dextrose 5 % IV Inject every day by intraven ous route. 07/08 completed Not Available Not Available Not Available Niferex-1 50 150 mg daily 07/08 completed Not Available Not Available Not Available Calcium Citrate + D 600mg Ca + 500Iu D3. 1 tab 5x qd active Not Available Not Available No t Available Vitamin B1 (Thiamine ) 250mcg 1 tab qd active Not Available Not Available No t Available calcium carbonate (bulk) 1000 mg daily 07/08 completed Not Available Not Available Not Available Hair,Skin and Nails 2500mcg 1 tab qd active Not Available Not Available No t Available thiamine HCl (bulk) 200 mg daily 07/08 completed Not Available Not Available Not Available Xarelto 20 mg tablet TAKE 1 TABLET BY MOUTH ONCE DAILY active Not Available Not Available No t Available Prepopik 10 mg-3.5 gram-12 gram oral powder packet 07/08 completed Not Available Not Available Not Available apixaban 5 mg tablet Take 1 tablet twice a day by oral route. 07/08 completed Not Available Not Available Not Available Vitamin B12 500 mcg daily active Not Available Not Available No t Available Vitals Date Recorded Body height Body mass index (BMI) Body weight Heart rate Oxygen saturation Oxygen saturation in Arterial blood by Pulse oximetry Systolic blood pressure Diastolic blood pressure Provider Name and Address Organization Details Last Updated DateTime 7 170.18 cm 55.3 kg/m2 342157. 11 g 67 /min 99 % 99 % 124 mm[Hg] 86 mm[Hg] Ela Quiñones [facility] 7 14:35:28 Date Recorded Body height Body mass index (BMI) Body weight Heart rate Oxygen saturation Oxygen saturation in Arterial blood by Pulse oximetry Systolic blood pressure Diastolic blood pressure Provider Name and Address Organization Details Last Updated DateTime 7 170.18 cm 55.3 kg/m2 369007. 11 g 62 /min 98 % 98 % 136 mm[Hg] 88 mm[Hg] Gina Noeehr [facility] 7 12:27:05 Date Recorded Body weight Body height Body mass index (BMI) Heart rate Oxygen saturation Oxygen saturation in Arterial blood by Pulse oximetry Systolic blood pressure Diastolic blood pressure Provider Name and Address Organization Details Last Updated DateTime 7 647773. 58 g 170.18 cm 57.8 kg/m2 96 /min 98 % 98 % 136 mm[Hg] 88 mm[Hg] Ela Quiñones [facility] 7 16:09:42 Social History Question Answer Notes LastModified by Organizat ion Details LastModified Time Tobacco Smoking Status Never Smoker Ela Quiñones [facility] 07/08/2016 16:02:44 What Is Your Level Of Alcohol Consumption? Occasional [email or web address] Information not available 07/08/2016 What Is Your Level Of Caffeine Consumption? Occasional [email or web address] Information not available 07/08/2016 How Much Tobacco Do You Chew? None [email or web address] Information not available 07/08/2016 What Type Of Diet Are You Following? REGULAR Weight Loss Information not available 07/08/2016 Which Illicit Or Recreational Drugs Have You Used? 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 With Others [email or web address] Information not available 07/08/2016 Marital Status [email or web address] Informatio n not available 07/08/2016 What Was The Date Of Your Most Recent Tobacco Screening? 02/03/2017 Information not available 09/14/2018 How Many Children Do You Have? 2 [email or web address] Information not available 07/08/2016 At What Age Did You Start Smoking Tobacco? 2 [email or web address] Information not available 07/08/2016 How Much Tobacco Do You Smoke? No [email or web address] Information not available 07/08/2016 General Stress Level Medium [email or web address] Information not available 07/08/2016 How Many Years Have You Smoked Tobacco? 0 [email or web address] Information not available 07/08/2016 Sex: Unknown Functional Status Question Answer Note LastModified by Organization D etails LastModified Time What is your exercise level? None [email or web address] Information not available 07/08/2016 Mental Status None recorded. Family History Relationship Description Onset Age of this Age Resolved Age Notes LastModified by Organization Details LastModified Time Mother Malignant tumor of breast [email or web address] Not available 2016 16:19:50 Mother Hypertensive disorder [email or web address] Not available 2016 16:20:04 Mother Atrial fibrillation [email or web address] Not available 16:20:47 Father Fibrosis of lung 64 [email or web address] Not available 2016 16:21:34 Maternal Grandmother Diabetes mellitus [email or web address] Not available 2016 16:02:27 Brother Hypertensive disorder [email or web address] Not available 2016 16:02:35 Medical History Condition Response Thyroid Disease Y Atrial Fibrillation Y Hypertension Y Gynecological HistoryNo gynecological history recorded. Obstetrics History GPAL:G 0 P 0 0 0 0 Past Encounters Encounter ID Performer Location Encounter Start Date Encounter Closed Date Diagnosis/Indication Diagnosis SNOMED-CT Code Diagnosis ICD10 Code [id number] [address] [place] [address] 07/08/2016 15:39:14 07/09/2016 10:14:03 Benign hypertension 75642528 I10 Patient's blood pressure is {{well-con trolled* n ot well-contr olled}} on present medical therapy. Patient is {{tolerati ng, without difficulty ,* having side effects with}} the current medication s. I have {{not made* made the following} } changes to the current regimen. {{ Patient is advised to maintain a blood pressure diary.*}} Cont low Na diet. Palpitations 10958256 R0 0.2 Paroxysmal atrial fibrillation 638858404 I48.0 Discussed diagnosis of {{paroxysm al atrial fibrillati on# atrial fibrillati on atrial flutter}}, including pathophysi ology and prognosis. Discussed importance of controllin g blood pressure, exercising regularly, and minimizing alcohol, caffeine, and decongesta nts. Patient {{with wit hout*}} hyperthyro idism now but post radiatiati on therapy in the past.{{ No need for treatment at this time.* Con tinue treatment as per endocrine. }} Advised patient to seek medical attention for palpitatio ns, chest pain, dizziness or syncope, shortness of breath, or any other new or concerning symptoms. Patient is on ASA 325 QD{{ warfa rin, novel oral anticoagul ant, }}{{ beta- douglas, beta-bloc ker + antiarrhyt hmic, calcium channel douglas, calcium channel douglas + antiarrhyt hmic, antiarrhy thmic, }}{{ digox in, }}and patient was advised to take medication as prescribed . {{ INR will be monitored with appropriat e warfarin dosing adjustment s.}} Fall precaution s reviewed. Stroke and bleeding risks reviewed with patient. [id number] [facility] OFFICE [address] [place] [id number] 01/06/2017 14:03:41 01/10/2017 10:20:46 Benign hypertension [id number] I10 Patient's blood pressure is {{well-con trolled* n ot well-contr olled}} on present medical therapy. Patient is {{tolerati ng, without difficulty ,* having side effects with}} the current medication s. I have {{not made* made the following} } changes to the current regimen. {{ Patient is advised to maintain a blood pressure diary.*}} Cont low Na diet. Palpitations 49279917 R0 0.2 Holter Paroxysmal atrial fibrillation 769077765 I48.0 Discussed diagnosis of {{paroxysm al atrial fibrillati on# atrial fibrillati on atrial flutter}}, including pathophysi ology and prognosis. Discussed importance of controllin g blood pressure, exercising regularly, and minimizing alcohol, caffeine, and decongesta nts. Patient {{with wit hout*}} hyperthyro idism now but post radiatiati on therapy in the past.{{ No need for treatment at this time.* Con tinue treatment as per endocrine. }} Advised patient to seek medical attention for palpitatio ns, chest pain, dizziness or syncope, shortness of breath, or any other new or concerning symptoms. Patient is on ASA 325 QD{{ warfa rin, novel oral anticoagul ant, }}{{ beta- douglas, beta-bloc ker + antiarrhyt hmic, calcium channel douglas, calcium channel douglas + antiarrhyt hmic, antiarrhy thmic, }}{{ digox in, }}and patient was advised to take medication as prescribed . {{ INR will be monitored with appropriat e warfarin dosing adjustment s.}} Fall precaution s reviewed. Stroke and bleeding risks reviewed with patient. [id number] Fredi Nair [facility] OFFICE [address] [place] [address] 02/03/2017 12:01:46 02/04/2017 10:37:41 Benign hypertension [id number] I10 Patient's blood pressure is {{well-con trolled* n ot well-contr olled}} on present medical therapy. Patient is {{tolerati ng, without difficulty ,* having side effects with}} the current medication s. I have {{not made* made the following} } changes to the current regimen. {{ Patient is advised to maintain a blood pressure diary.*}} Cont low Na diet.ECHO Palpitations 78849560 R0 0.2 Holter showed that pt does have occasional PACs in bigeminy pattern and she had one short episode of AFIB ( 5 beats). Paroxysmal atrial fibrillation 626615056 I48.0 Discussed diagnosis of {{paroxysm al atrial fibrillati on# atrial fibrillati on atrial flutter}}, including pathophysi ology and prognosis. Discussed importance of controllin g blood pressure, exercising regularly, and minimizing alcohol, caffeine, and decongesta nts. Patient {{with wit hout*}} hyperthyro idism now but post radiatiati on therapy in the past.{{ No need for treatment at this time.* Con tinue treatment as per endocrine. }} Advised patient to seek medical attention for palpitatio ns, chest pain, dizziness or syncope, shortness of breath, or any other new or concerning symptoms. Patient will be started on {{ warfari n, novel oral anticoagul ant, *}}{{ beta -douglas, beta-bloc ker + antiarrhyt hmic, calcium channel douglas, calcium channel duoglas + antiarrhyt hmic, antiarrhy thmic, }}{{ digox in, }}and patient was advised to take medication as prescribed . {{ INR will be monitored with appropriat e warfarin dosing adjustment s.}} Fall precaution s reviewed. Stroke and bleeding risks reviewed with patient.Sh e will switch from Metoprolol to Cardizem 30 BID. Hypertriglyceridemia 302 784197 E78.1 Patient's hyperlipid emia is {{well-con trolled no t well-contr olled*}} on present medical therapy. Patient was advised to eat a low-fat diet. Patient is {{tolerati ng, without difficulty ,* having side effects with}} the current medication s. I have {{not made made the following* }} changes to the current regimen: start Fish oil 1000 BID Health Concerns Section Related Observation LastModified by Organization Detai ls LastModified Time None Recorded Concern Status LastModified by Organization Details LastModified Time None Recorded Advance Directives Directive None Recorded Payers Encounter Date Sequence Insurance Name Policy Number Policy Camara Covered Member ID Camara Member ID Guarantor Name 01/06/2017 1 [facility] [id number] Leora Mcghee [id number] Leora Mcghee 02/03/2017 1 [facility] [id number] Leora Mcghee [id number] Leora Mcghee Notes Date Note Type Note Provider Name and Address Organization Details Recorded Time 07/08/2016 text/html CC : Palpiatatio n , Shortness of breath 55 years-old White Female with morbid obesity s/p gastric bypass, Hypertension , Hypothyroidism and paroxysmal AFIB is here for follow up after dc from hospital. Pt was recently admitted to [facility] where she was diagnosed with AFIB. She converted to NSR on cardizem drip. Since then she remains in NSR. She was in the hospital in 06/23/16 because of Atrial fibrillation with rapid ventricular response . Had ECHO done 06/23/16 showed normal LV systolic function , mild pulmonary HTN, Mild tricuspid regurgitation. Pt admits that she has not followed low Na diet and her BP was significantly elevated upon admission to the hospital. She does not have BP machine but plans to buy one soon.She plans to increase her physical activity. She had recently labs at her [facility]. Will try to obtain results {{No known history of coronary artery disease.* History of coronary artery disease reported.}} {{No history of previous myocardial infarction.* History of previous myocardial infarction reported.}} {{No history of heart failure.* History of heart failure reported.}} {{No known valvular heart disease.* History of valvular heart disease reported.}} {{No known arrhythmia.* History of arrhythmia reported.}} {{Patient reports feeling well overall.* Patient reports not feeling well sometimes.}} {{Patient is active, but is not exercising regularly.* Patient is active, exercising regularly. Patient is not very active, and is not exercising.}} {{No chest pain.* Chest pain reported. Exertional chest pain reported. Non-exertio nal chest pain reported. Chest pain reported which is only sometimes associated with activity.}} {{No arm pain.* Arm pain reported.}} {{No neck pain.* Neck pain reported.}} {{No nausea and vomiting.* Nausea and vomiting reported.}} {{No diaphoresis.* Diaphor esis reported.}} {{No shortness of breath at rest.* Shortness of breath at rest reported.}} {{No dyspnea on exertion.* Dyspnea on exertion reported.}} {{No fatigue.* Fatigue reported.}}{{No orthopnea.* Orthopnea reported.}} {{No PND.* PND reported.}} {{No leg swelling.* Leg swelling reported.}} {{No palpitation. Palpitat ion reported.*}} {{No dizziness.* Dizziness reported.}} {{No syncope .* Syncope reported.}} {{No pre-syncope.* Pre-syn cope reported.}} {{No claudication.* Claudi cation reported.}} {{No major bleeding events.* Major bleeding event reported.}} {{No side effects from medications.* Side effects from medications reported.}} {{Complete ROS negative except as stated in the HPI. Complete ROS negative except as stated in the HPI and ROS.*}} Results from this visit, or from the past: EKG (07/08/16): NSR, NSST changes 06/23/16 CHEST TWO VIEW: No acute cardiopulmonary findings. 06/23/16 ECHO: Normal left ventricular systolic function. No focal wall motion abnormalities. Normal left ventricular size. Mild pulmonary hypertension based on right ventricular systolic pressure. Estimated peak RVSP is 36 mmHg. Mild tricuspid regurgitation. Fredi Nair [facility] 07/08/2016 17:06:27 01/06/2017 text/html CC : Palpiatatio n , Shortness of breath 56 years-old White Female with morbid obesity s/p gastric bypass, Hypertension , Hypothyroidism and paroxysmal AFIB is here for follow up. Pt was last time in our office 6 months ago. Since then she feels fine. Occasionally experience palpitations. No CP, SOB or syncopal episodes. Pt was admitted to [facility] about 6 months ago where she was diagnosed with AFIB. She converted to NSR on cardizem drip. Since then she remains in NSR. States that her BP is well controlled ( 120/80). She was in the hospital in 06/23/16 because of Atrial fibrillation with rapid ventricular response . Had ECHO done 06/23/16 showed normal LV systolic function , mild pulmonary HTN, Mild tricuspid regurgitation. Pt admits that she has not followed low Na diet and her BP was significantly elevated upon admission to the hospital. She plans to increase her physical activity. She had recently labs at her [facility] office. Will try to obtain results {{No known history of coronary artery disease.* History of coronary artery disease reported.}} {{No history of previous myocardial infarction.* History of previous myocardial infarction reported.}} {{No history of heart failure.* History of heart failure reported.}} {{No known valvular heart disease.* History of valvular heart disease reported.}} {{No known arrhythmia.* History of arrhythmia reported.}} {{Patient reports feeling well overall.* Patient reports not feeling well sometimes.}} {{Patient is active, but is not exercising regularly.* Patient is active, exercising regularly. Patient is not very active, and is not exercising.}} {{No chest pain.* Chest pain reported. Exertional chest pain reported. Non-exertio nal chest pain reported. Chest pain reported which is only sometimes associated with activity.}} {{No arm pain.* Arm pain reported.}} {{No neck pain.* Neck pain reported.}} {{No nausea and vomiting.* Nausea and vomiting reported.}} {{No diaphoresis.* Diaphor esis reported.}} {{No shortness of breath at rest.* Shortness of breath at rest reported.}} {{No dyspnea on exertion.* Dyspnea on exertion reported.}} {{No fatigue.* Fatigue reported.}}{{No orthopnea.* Orthopnea reported.}} {{No PND.* PND reported.}} {{No leg swelling.* Leg swelling reported.}} {{No palpitation. Palpitat ion reported.*}} {{No dizziness.* Dizziness reported.}} {{No syncope .* Syncope reported.}} {{No pre-syncope.* Pre-syn cope reported.}} {{No claudication.* Claudi cation reported.}} {{No major bleeding events.* Major bleeding event reported.}} {{No side effects from medications.* Side effects from medications reported.}} {{Complete ROS negative except as stated in the HPI. Complete ROS negative except as stated in the HPI and ROS.*}} Results from this visit, or from the past: 06/28/16 : SOD 142,K 3.7,CL 103,CO2 29,GLU 100,BUN 11,CR 0.7,AST 24,ALT 26, TC 109,TG 140,HDL 41,LDL 48. 06/29/16 : PT 12.7, INR 1.0 , PTT 29 . 06/24/16: NA:142, K:3.7, CL:103, CO2:29, GLU:100, BUN:11, CR:0.70 EKG 07/15/16 : NSR. Low voltage, chest leads. EKG (07/08/16): NSR, NSST changes 06/23/16 CHEST TWO VIEW: No acute cardiopulmonary findings. 06/23/16 ECHO: Normal left ventricular systolic function. No focal wall motion abnormalities. Normal left ventricular size. Mild pulmonary hypertension based on right ventricular systolic pressure. Estimated peak RVSP is 36 mmHg. Mild tricuspid regurgitation. Fredi witt, [place] - [facility] 01/08/2017 02:18:15 02/03/2017 text/html CC : Palpiatatio n , Shortness of breath 56 years-old White Female with morbid obesity s/p gastric bypass, Hypertension , Hypothyroidism and paroxysmal AFIB is here for follow up. Pt was last time in our office 1 month ago.She underwent diagnostic tests and today presents for review of results. Pt generally feels fine. Occasionally experience palpitations. No CP, SOB or syncopal episodes. Pt was admitted to [facility] in 07/07 where she was diagnosed with AFIB. She converted to NSR on cardizem drip. Since then she remains in NSR. States that her BP is well controlled ( 120/80). She was in the hospital in 06/23/16 because of Atrial fibrillation with rapid ventricular response . Had ECHO done 06/23/16 showed normal LV systolic function , mild pulmonary HTN, Mild tricuspid regurgitation. Pt admits that she has not followed low Na diet and her BP was significantly elevated upon admission to the hospital. She plans to increase her physical activity. She had recently labs at her PC office. Will try to obtain results Had ECHO done in 06/23/16 showed normal LV systolic function . Results from this visit, or from the past:01/22/17 : GLU:95, BUN:15, CR:0.64, NA:142, K:4.8, CL:101, CO2:4141-13-6220 01/22/17 : TC:151, TR:178, HDL:52, LDL:63TSH: 2.1694506/28/16 : SOD 142,K 3.7,CL 103,CO2 29,GLU 100,BUN 11,CR 0.7,AST 24,ALT 26, TC 109,TG 140,HDL 41,LDL 48. 06/29/16 : PT 12.7, INR 1.0 , PTT 29 . 06/24/16: NA:142, K:3.7, CL:103, CO2:29, GLU:100, BUN:11, CR:0.70 01/06/17 EKG: Low voltage, chest leads.EKG 07/15/16 : NSR. Low voltage, chest leads. EKG (07/08/16): NSR, NSST changes 06/23/16 CHEST TWO VIEW: No acute cardiopulmonary findings. 06/23/16 ECHO: Normal left ventricular systolic function. No focal wall motion abnormalities. Normal left ventricular size. Mild pulmonary hypertension based on right ventricular systolic pressure. Estimated peak RVSP is 36 mmHg. Mild tricuspid regurgitation. Fredi witt [place] - [facility] 02/04/2017 23:37:46 OBGyn Episode No OBEpisode recorded.
--- OUTSIDE RECORDS SUMMARY | 2024-03-29 00:54 | XMS_ITS | Clinical Summary ---
Author Organization [facility] [address] Address [address] [place] [address] Care Team Providers Care Aluminum Molder Name Role Phone Romel Sosa MD Primary Care Provider +1- [phone] Allergies No known active allergies Medications SYNTHROID 100 mcg tablet Take 1 tablet (100 mcg total) by mouth daily 01/15/2017 Active thiamine (VITAMIN B-1) 100 mg tablet Take 2.5 tablets (250 mg total) by mouth daily Active cyanocobalamin (Vitamin B-12) 500 mcg tabletIndicatio ns:Prevention of Vitamin B12 Deficiency Take 1 tablet (500 mcg total) by mouth daily Active ferrous gluconate 270 mg (27 mg iron) tablet Take 27 mg by mouth daily. Active CALCIUM CITRATE-VITAMIN D3 ORAL Calcium Citrate + D 600mg Ca + 500Iu D3. 1 tab 5x qd Active triamcinolone (KENALOG) 0.1 % cream APPLY TO THE AFFECTED AREA(S) ON THE SKIN ONCE DAILY NEEDED FOR ITCHING 11/11/2020 Active sotaloL (BETAPACE) 120 mg tablet TAKE 1 TABLET BY MOUTH EVERY 12 HOURS. 180 tablet 3 02/28/2023 Active rivaroxaban (Xarelto) 20 mg tablet Take 1 tablet (20 mg total) by mouth daily 90 tablet 2 08/29/2023 Active Active Problems Problem Noted Date Diagnosed Date Morbid (severe) obesity due to excess calories 0 03/23/2022 Body mass index (BMI) 50.0-59.9, adult QT prolongation 11/24/2020 Chronic heart failure with p reserved ejection fraction (CMS/HCC) 02/27/2020 Encounter for monitoring sotalol therapy 020 Chronic anticoagulation 06/05/2018 Paroxysmal atrial fibrillation (CMS/HCC) 018 Acquired hypothyroidism 04/14/2017 Morbid obesity with BMI of 50.0-59.9, adult 03/25 Essential hypertension 04/14/2017 Lipid screening 04/14/2017 BLACKWOOD (dyspnea on exertion) 04/14/2017 Palpitations 04/14/2017 Pulmonary HTN 04/14/2017 Resolved Problems Problem Noted Date Diagnosed Date Resolved Date Diastolic dysfunction with heart failure 04/14/2017 02/27/2020 Encounters Date Type Department Care Team Description 02/28/2024 Telephone [facility] Cardiology [address] [place] [phone] Rand Mendoza NP 02/09/2024 3:00 PM GRAIN SAMPLER Office Visit [facility] Cardiology [address] [place] [address] [address] [place] [phone] Rand Mendoza NP Cellulitis of left lower extremity; Paroxysmal atrial fibrillation (CMS/HCC) (HCC); Chronic anticoagulation; Hospital discharge follow-up 02/02/2024 Orders Only [facility] Cardiology [address] [place] [phone] Chelsea Darby, ELDER 01/26/2024 Orders Only [facility] Cardiology [address] [place] [phone] Chelsea Darby, ELDER 01/23/2024 Orders Only [facility] Cardiology [address] [place] [phone] Jaxon Beck MD 01/22/2024 Orders Only [facility] Health Information Management [address] [place] [id number] Za Chirinos DO from Last 3 Months Surgical History Surgery Date Site/Laterality Comments SECTION GALLBLADDER SURGERY GASTRIC BYPASS DECUBITUS ULCER EXCISION CHOLECYSTECTOMY 1994 LASIK 2011 TUBAL LIGATION 01/27/1994 BARIATRIC SURGERY 03/13/2009 Medical History Medical History Date Comments Hypertension Thyroid disease Gallstones Diverticulitis Arrhythmia Atrial fibrillation (CMS/HCC) (HCC) CHF (congestive heart failure) (CMS/HCC) (HCC) Family History Medical History Relation Name Comments Car Accident Brother 1 Hypertension Brother 2 Bob [place] Pulmonary fibrosis Father Atrial fibrillation Mother Marina [place] Breast cancer Mother Marina [place] Cancer Mother Marina [place] Hypertension Mother Marina [place] Thyroid disease Mother Marina [place] Thyroid disease Sister 1 Obesity Sister 2 Carol [place] Relation Name Status Comments Brother 1 (Age 33) Brother 2 Bob [place] Father (Age 64) Mother Marina [place] Alive Sister 1 Alive Sister 2 Carol Ngo Social History Tobacco Use Types Packs/Day Years Used Date Smoking Tobacco: Never Smokeless Tobacco: Never Alcohol Use Standard Drinks/Week Comments No 0 (1 standard drink = 0.6 oz pur e alcohol) Comments Unknown Sex and Gender Information Value Date Recorded Sex Assigned at Not on file Legal Sex Female 6:55 AM GRAIN SAMPLER Gender Identity Female 09/08/2021 11:01 AM CDT Sexual Orientation Straight 09/08/2021 11 :01 AM CDT Obstetrics History Last Filed Vital Signs Vital Sign [place] Time Taken Comments Blood Pressure 134/84 02/09/2024 2:58 PM GRAIN SAMPLER Pulse 87 02/09/2024 2:58 PM GRAIN SAMPLER Temperature - - Respiratory Rate - - Oxygen Saturation 97% 02/09/2024 2:58 PM GRAIN SAMPLER Inhaled Oxygen Concentration - - Weight 161.3 kg (355 lb 9.6 oz) 02/09/2024 2:58 PM GRAIN SAMPLER Height 170.2 cm (5' 7 ) 02/09/2024 2:58 PM GRAIN SAMPLER Body Mass Index 55.69 02/09/2024 2:58 PM GRAIN SAMPLER Plan of Treatment Health Maintenance Due Date Last Done Comments Breast Cancer Screening-Mammogram 1962 Cervical Cancer Screening 1962 Colon Cancer Screening-Colonoscopy 1962 Depression Screening 1962 Hepatitis C Screening 1962 Pneumococcal vaccine <65 (1 of 2 - PCV) 1968 Hepatitis B Screening 1980 Regular Well Visit/Exam 18-64 1980 Zoster Vaccine (1 of 2) 2012 Influenza Vaccine (#1) 2023 11/11/2022, 2017 DTaP/Tdap/Td Vaccine (2 - Td or Tdap) 08/11/2024 Procedures Procedure Name Priority Date/Time Associated Diagnosis Comments CARDIOLOGY DOCUMENT SCAN Routine 01/26/2024 3:24 PM GRAIN SAMPLER CARDIOLOGY DOCUMENT SCAN Routine 01/24/2024 2:50 PM GRAIN SAMPLER CARDIOLOGY DOCUMENT SCAN Routine 01/23/2024 2:41 PM GRAIN SAMPLER CARDIOLOGY DOCUMENT SCAN Routine 01/22/2024 6:47 PM GRAIN SAMPLER SCAN - RADIOLOGY/IMAGING 01/22/2024 from Last 3 Months Results * Cardiology Document Scan (01/26/2024 3:24 PM GRAIN SAMPLER) Anatomical Region Laterality Modality Other Chelsea Darby NP CV CARDIAC SERVICES PROCEDUR ES Final Result * Cardiology Document Scan (01/24/2024 2:50 PM GRAIN SAMPLER) Anatomical Region Laterality Modality Other Result [facility] Chelsea Darby NP CV CARDIAC SERVICES PROCEDUR ES Final Result * Cardiology Document Scan (01/23/2024 2:41 PM GRAIN SAMPLER) Anatomical Region Laterality Modality Other Chelsea Darby NP CV CARDIAC SERVICES PROCEDUR ES Final Result * Cardiology Document Scan (01/22/2024 6:47 PM GRAIN SAMPLER) Anatomical Region Laterality Modality Other Jaxon Beck MD CV CARDIAC SERVICES PROCEDU RES Final Result * SCAN - RADIOLOGY/IMAGING (01/22/2024) Anatomical Region Laterality Modality Other aZ Chirinos DO Final Result from Last 3 Months Insurance [facility] [employer] Care Teams Aluminum Molder Relationship Specialty Start Date End Date Romel Sosa MD [address] [facility] [address] [place] [address] PCP - General Internal Medicine 03/11/17
--- OUTSIDE RECORDS SUMMARY | 2024-03-29 00:54 | XMS_ITS | Encounter Summary ---
Author Organization [facility] Healthcare Address [address] [place] [address] Care Team Providers Care Biologist Name Role Phone Romel Sosa MD Primary Care Provider +1- [phone] Encounter Details Date Type Department Care Team (Late st Contact Info) Description 01/22/2024 Orders Only [facility] Health Information Management [address] [place] [id number] Za Chirinos DO [address] [address] Social History Tobacco Use Types Packs/Day Years Used Date Smoking Tobacco: Never Smokeless Tobacco: Never Alcohol Use Standard Drinks/Week Comments No 0 (1 standard drink = 0.6 oz pur e alcohol) Comments Unknown Sex and Gender Information Value Date Recorded Sex Assigned at Not on file Legal Sex Female 6:55 AM GUEST RELATIONS AGENT Gender Identity Female 09/08/2021 11:01 AM CDT Sexual Orientation Straight 09/08/2021 11 :01 AM CDT documented as of this encounter Plan of Treatment Not on file documented as of this encounter Procedures Procedure Name Priority Date/Time Associated Diagnosis Comments SCAN - RADIOLOGY/IMAGING 01/22/2024 documented in this encounter Results * SCAN - RADIOLOGY/IMAGING (01/22/2024) Anatomical Region Laterality Modality Other Za Chirinos DO Final Result documented in this encounter Visit Diagnoses Not on filedocumented in this encounter Care Teams Biologist Relationship Specialty Start Date End Date Romel Sosa MD [address] [facility] [address] [place] [address] PCP - General Internal Medicine 03/11/17 documented as of this encounter
--- OUTSIDE RECORDS SUMMARY | 2024-03-29 00:54 | XMS_ITS | Referral Summary ---
Author Organization [address] Address [address] [place] [address] Care Team Providers Care Aircraft De Icer Installer Name Role Phone Romel Sosa MD Primary Care Provider +1- [phone] Encounters Date Type Department Care Team Description 02/28/2024 Telephone [facility] Cardiology [address] [facility] [address] [place] [phone] Rand Mendoza NP 02/09/2024 3:00 PM SUPERINTENDENT DIVISION Office Visit [facility] Cardiology [address] [facility] [address] [place] [phone] Rand Mendoza NP Cellulitis of left lower extremity; Paroxysmal atrial fibrillation (CMS/HCC) (HCC); Chronic anticoagulation; Hospital discharge follow-up 02/02/2024 Orders Only [facility] Cardiology [address] [facility] [address] [place] [phone] Chelsea Darby, ELDER 01/26/2024 Orders Only [facility] Cardiology [address] [facility] [address] [place] [phone] Chelsea Darby, ELDER 01/23/2024 Orders Only [facility] Cardiology [address] [facility] [address] [place] [phone] Jaxon Beck MD 01/22/[address] [facility] Health Information Management [address] [place] [id number] Za Chirinos DO from Last 3 Months Allergies No known active allergies Medications SYNTHROID [...] 020 Chronic anticoagulation 06/05/2018 Paroxysmal atrial fibrillation ([facility]/HCC) 018 Acquired hypothyroidism 04/14/2017 Morbid obesity with BMI of 50.0-59.9, adult 03/25 Essential hypertension 04/14/2017 Lipid screening 04/14/2017 BLACKWOOD (dyspnea on exertion) 04/14/2017 Palpitations 04/14/2017 Pulmonary HTN 04/14/2017 Resolved Problems Problem Noted Date Diagnosed Date Resolved Date Diastolic dysfunction with heart failure 04/14/2017 02/27/2020 Social History Tobacco Use Types Packs/Day Years Used Date Smoking Tobacco: Never Smokeless Tobacco: Never Alcohol Use Standard Drinks/Week Comments No 0 (1 standard drink = 0.6 oz pur e alcohol) Comments Unknown Sex and Gender Information Value Date Recorded Sex Assigned at Not on file Legal Sex Female 6:55 AM SUPERINTENDENT DIVISION Gender Identity Female 09/08/2021 11:01 AM CDT Sexual Orientation Straight 09/08/2021 11 :01 AM CDT Last Filed Vital Signs Vital Sign [place] Time Taken Comments Blood Pressure 134/84 02/09/2024 2:58 PM SUPERINTENDENT DIVISION Pulse 87 02/09/2024 2:58 PM SUPERINTENDENT DIVISION Temperature - - Respiratory Rate - - Oxygen Saturation 97% 02/09/2024 2:58 PM SUPERINTENDENT DIVISION Inhaled Oxygen Concentration - - Weight 161.3 kg (355 lb 9.6 oz) 02/09/2024 2:58 PM SUPERINTENDENT DIVISION Height 170.2 cm (5' 7 ) 02/09/2024 2:58 PM SUPERINTENDENT DIVISION Body Mass Index 55.69 02/09/2024 2:58 PM SUPERINTENDENT DIVISION Plan of Treatment Not on file Procedures Procedure Name Priority Date/Time Associated Diagnosis Comments CARDIOLOGY DOCUMENT SCAN Routine 01/26/2024 3:24 PM SUPERINTENDENT DIVISION CARDIOLOGY DOCUMENT SCAN Routine 01/24/2024 2:50 PM SUPERINTENDENT DIVISION CARDIOLOGY DOCUMENT SCAN Routine 01/23/2024 2:41 PM SUPERINTENDENT DIVISION CARDIOLOGY DOCUMENT SCAN Routine 01/22/2024 6:47 PM SUPERINTENDENT DIVISION SCAN - RADIOLOGY/IMAGING 01/22/2024 from Last 3 Months Results * Cardiology Document Scan (01/26/2024 3:24 PM SUPERINTENDENT DIVISION) Anatomical Region Laterality Modality Other Chelsea Darby NP CV CARDIAC SERVICES PROCEDUR ES Final Result * Cardiology Document Scan (01/24/2024 2:50 PM SUPERINTENDENT DIVISION) Anatomical Region Laterality Modality Other Chelsea Darby NP CV CARDIAC SERVICES PROCEDUR ES Final Result * Cardiology Document Scan (01/23/2024 2:41 PM SUPERINTENDENT DIVISION) Anatomical Region Laterality Modality Other Chelsea Darby NP CV CARDIAC SERVICES PROCEDUR ES Final Result * Cardiology Document Scan (01/22/2024 6:47 PM SUPERINTENDENT DIVISION) Anatomical Region Laterality Modality Other Jaxon Beck MD CV CARDIAC SERVICES PROCEDU RES Final Result * SCAN - RADIOLOGY/IMAGING (01/22/2024) Anatomical Region Laterality Modality Other us Za Hopen DO Final Result from Last 3 Months Insurance [facility] [employer] [facility] HMO/PPO Address: [facility] [id number] [place] [phone] Care Teams Aircraft De Icer Installer Relationship Specialty Start Date End Date Romel Sosa MD [address] [facility] [address] [place] [address] PCP - General Internal Medicine 03/11/17
[2024-03-29 10:28] VITALS: BP 180/74; PULSE 71; RESP 18; TEMP 36.2; O2SAT 99; BMI 56.9
--- NOTE | 2024-03-29 10:29 | WPDANESEPPF ---
Anes - Initial Pre Proc Eval Procedure: Operation Date: 03/29/24 14:00 Proposed Procedures p Screening Colonoscopy - Liang Alfaro MD Date/Time: 03/29/24 10:29 Surgeon: Liang Alfaro MD Pre Op Diagnosis: Neoplasm screening Patient Data Age: 63 Gender: F Height: 1.7 m Weight: 165.25 kg Allergies Allergy/AdvReac Type Severity Reaction Status Date / Time No Known Allergies Allergy Verified 03/29/24 10:25 Home Medications ?Medication ?Instructions ?Recorded ?Confirmed ?Type pediatric multivitamin no.76 2 tablet PO DAILY 04/03/19 03/21/24 History (Flintstones Complete chewable tablet) rivaroxaban 20 mg tablet (Xarelto) 20 mg PO HS 04/03/19 03/29/24 History calcium carbonate (Calcium 600) 600 mg PO DAILY 08/27/22 03/21/24 History cyanocobalamin (vitamin B-12) 5,000 mcg PO DAILY 01/21/24 03/21/24 History 5,000 mcg disintegrating tablet ferrous gluconate 225 mg (27 mg 225 mg PO DAILY 01/21/24 03/29/24 History iron) tablet sotalol 120 mg tablet 120 mg PO Q12H 01/21/24 03/29/24 History thiamine HCl (vitamin B1) 250 mg 250 mg PO DAILY 01/21/24 03/21/24 History tablet tirzepatide (weight loss) 2.5 2.5 mg (0.5 mL) subcut WEEKLY #2 mL 03/15/24 03/21/24 Rx mg/0.5 mL subcutaneous pen injector (Zepbound) levothyroxine 100 mcg tablet 100 mcg PO DAILY #90 tabs 03/19/24 03/21/24 Rx (Synthroid) Patient hx anesthesia problems: none Family hx anesthesia problems: none Results Review: All pre-operative results and documents have been reviewed as part of the pre-operative evaluation. [facility] Past Medical History Medical History Chronic venous stasis dermatitis of left lower extremity Morbid obesity with BMI of 50.0-59.9, adult Essential (primary) hypertension Chronic anticoagulation Pulmonary hypertension Heart failure with preserved ejection fraction Morbid obesity Surgical History Surgical History History of tubal ligation History of 2 sections Hx of cholecystectomy S/P gastric bypass Family History Family History Sibling Hypertension Mother Atrial fibrillation Hypertension Breast cancer Father Pulmonary fibrosis Angina at rest Sibling Lymphedema Grandparent Diabetes mellitus Social History Social History Social History: The patient is x2. She lives in her own home and her mother lives with her. She has a pit bull at home. She has 1 daughter and 1 son. She works for [employer] in a [employer] She is a lifelong nonsmoker. She used to occasionally drink alcohol but now only rarely drinks alcohol. She denies illicit substance use. Code status: Full code Surrogate decision makers: Both her daughter and her son. She does not have advanced directives in place. Smoking status: Never smoker Second hand tobacco smoke exposure: No Alcohol intake: never Substance use: never Do You Feel Safe in your Home?: Yes Lack of Transportation: No Lack of Food: Never True Current Housing: I Have Housing Concerned About Future Housing: No Difficulty Paying Gas/Electric Bills: No Difficulty Paying for Meds: No Currently Unemployed: No Education: Decline to Answer Difficulty w/ Childcare or Family Care: No Gender identity (if verbalized by the patient): Female Spiritual care concerns: No Agree to blood products: Yes Anes - Eval Final PreProcedure Day of Procedure 03/29/24 10:29 Patient weight: morbidly obese Heart: regular rate and rhythm Lungs: clear to auscultation Airway: Mallampati scale class II Neurological: alert and oriented Last oral intake: >/= 8 hours ASA classification: III Emergent: no Anesthetic plan: proceed Anesthesia type and monitoring: general GIVS and standard monitoring Results Review: All pre-operative results and documents have been reviewed as part of the pre-operative evaluation. Informed Consent: The patient's anesthetic plan and its attendant risks and benefits were discussed with the patient/family/POA. Questions were solicited and answers provided to the satisfaction of the patient/family/POA.
[2024-03-29] MEDS: LACTATED RINGERS 1,000 ML 150 ML IV CONT (10:37)
--- NOTE | 2024-03-29 10:47 | P.HP_ITS ---
History of Present Illness History of Present Illness Consent: Risks, benefits, and alternatives have been discussed and questions answered. Patient agrees to proceed with procedure. Chief complaint: Neoplasm screening Narrative: Leora cMghee is a 63 year old female here for screening colonoscopy, last one 2015 Review of Systems Review of Systems: All systems reviewed & are unremarkable except as noted in HPI and below PMFSH Past Medical History Medical History (Updated 03/29/24 @ 10:48 by Liang Alfaro MD) Colon cancer screening Chronic venous stasis dermatitis of left lower extremity Morbid obesity with BMI of 50.0-59.9, adult Essential (primary) hypertension Chronic anticoagulation Pulmonary hypertension Heart failure with preserved ejection fraction Morbid obesity Surgical History Surgical History History of tubal ligation History of 2 sections Hx of cholecystectomy S/P gastric bypass Family History Family History Sibling Hypertension Mother Atrial fibrillation Hypertension Breast cancer Father Pulmonary fibrosis Angina at rest Sibling Lymphedema Grandparent Diabetes mellitus Social History Social History Social History: The patient is x2. She lives in her own home and her mother lives with her. She has a pit bull at home. She has 1 daughter and 1 son. She works for [employer] in a [employer]. She is a lifelong nonsmoker. She used to occasionally drink alcohol but now only rarely drinks alcohol. She denies illicit substance use. Code status: Full code Surrogate decision makers: Both her daughter and her son. She does not have advanced directives in place. Smoking status: Never smoker Second hand tobacco smoke exposure: No Alcohol intake: never Substance use: never Do You Feel Safe in your Home?: Yes Lack of Transportation: No Lack of Food: Never True Current Housing: I Have Housing Concerned About Future Housing: No Difficulty Paying Gas/Electric Bills: No Difficulty Paying for Meds: No Currently Unemployed: No Education: Decline to Answer Difficulty w/ Childcare or Family Care: No Gender identity (if verbalized by the patient): Female Spiritual care concerns: No Agree to blood products: Yes Meds Home Medications and Allergies Home Medications ?Medication ?Instructions ?Recorded ?Confirmed ?Type pediatric multivitamin no.76 2 tablet PO DAILY 04/03/19 03/21/24 History (Flintstones Complete chewable tablet) rivaroxaban 20 mg tablet (Xarelto) 20 mg PO HS 04/03/19 03/29/24 History calcium carbonate (Calcium 600) 600 mg PO DAILY 08/27/22 03/21/24 History cyanocobalamin (vitamin B-12) 5,000 mcg PO DAILY 01/21/24 03/21/24 History 5,000 mcg disintegrating tablet ferrous gluconate 225 mg (27 mg 225 mg PO DAILY 01/21/24 03/29/24 History iron) tablet sotalol 120 mg tablet 120 mg PO Q12H 01/21/24 03/29/24 History thiamine HCl (vitamin B1) 250 mg 250 mg PO DAILY 01/21/24 03/21/24 History tablet tirzepatide (weight loss) 2.5 2.5 mg (0.5 mL) subcut WEEKLY #2 mL 03/15/24 03/21/24 Rx mg/0.5 mL subcutaneous pen injector (Zepbound) levothyroxine 100 mcg tablet 100 mcg PO DAILY #90 tabs 03/19/24 03/21/24 Rx (Synthroid) Allergies Allergy/AdvReac Type Severity Reaction Status Date / Time No Known Allergies Allergy Verified 03/29/24 10:25 Vital Signs Vital Signs - 24 hr 03/29/24 10:28 Temperature 97.1 F L Pulse Rate 71 Respiratory Rate 18 Blood Pressure 180/74 H Pulse Oximetry 99 Oxygen Delivery Room Air Exam Const: General: comfortable, no acute distress and obese HENMT: Face/Nose/Sinus: Normal nares present Eyes: General: appearance normal, both eyes and all related structures Neck: Neck: no JVD Resp: Auscultation: clear to auscultation bilaterally Cardio: Rate: regular rate Rhythm: regular rhythm GI: Inspection: non-distended GI Palp: Yes Soft to palpation Skin: General skin exam: normal color Neuro: Speech: normal speech Extrem: General: normal to inspection Psych: Mental Status: mental status grossly normal Assessment and Plan Assessment and plan (1) Colon cancer screening: Code(s): Z12.11 - Encounter for screening for malignant neoplasm of colon Status: Acute Assessment and Plan: colonoscopy
[2024-03-29 11:02] VITALS: BP 132/69; PULSE 64; RESP 24; O2SAT 100
[2024-03-29 11:12] VITALS: BP 125/56; PULSE 68; RESP 15; O2SAT 100
[2024-03-29 11:22] VITALS: BP 143/76; PULSE 66; RESP 21; O2SAT 100
== END 2024-03-29 11:30 | disposition home or self-care (01) ==
PROVIDERS: PCP Internal Medicine; Visit Provider Internal Medicine Gastroenterology
PROC: 0DJD8ZZ Inspection of Lower Intestinal Tract, Via Natural or Artificial Opening Endoscopic (ICD-10-PCS; CPT 45378; principal; 2024-03-29 14:00)
DX: Z12.11 Encounter for screening for malignant neoplasm of colon (principal); K57.30 Diverticulosis of large intestine without perforation or abscess without bleeding; E66.01 Morbid (severe) obesity due to excess calories; Z68.43 Body mass index [BMI] 50.0-59.9, adult
CPT/HCPCS: 45378; J2704; J7120